=== PATIENT | female | born 1950 | race Caucasian/White ===

== ENCOUNTER 2022-01-22 09:38 | Emergency (ER) | payer MEDICARE, SELFPAY ==
[2022-01-22] VITALS (8 sets, daily range): BP systolic 105–148; BP diastolic 58–90; PULSE 88–96; RESP 16–20; TEMP 36.8–36.9; O2SAT 92–100
--- NOTE | ~2022-01-22 | XR_ITS ---
XR chest 1V portable DATE: 01/22/2022 10:02 INDICATION: Shortness of breath TECHNIQUE: Portable upright AP chest on 02/01/2022 at 1009 hours COMPARISON: None FINDINGS: Mild discoid atelectasis or scarring in the right lower lung. Mild infiltrate or atelectasi s in the lower lung zones, left greater than right. Cardiomegaly. Aortic unfolding. No hilar or mediastinal enlargement. No pleural effusion or pulmonary mass congestion or pneumothorax. Osteopenia. Degenerative spurring of the thoracic spine. IMPRESSION: Mild infiltrate and/atelectasis of the lower lung zones Reviewed, dictated and finalized at location B. HOUSE SHIPPING ASSOCIATE
--- NOTE | ~2022-01-22 | CT_ITS ---
EXAMINATION: CTA chest PE protocol DATE: 01/22/2022 12:30 INDICATION: Shortness of breath. Elevated d-dimer. TECHNIQUE: Computed tomography angiography (CTA) of the chest was performed with 100 mL Omnipaque-350 intravenous contrast timed to evaluate the pulmonary arteries. Coronal maximum intensity projection 3D-reconstructions were created by the technologist. Automated exposure control and iterative reconst ruction technique were employed. Exam dose: 391.32 mGy-cm total exam DLP. COMPARISON: 01/22/2022 portable AP chest FINDINGS: There is diagnostic contrast enhancement of the pulmonary arteries. No central pulmonary em bolus is identified. Peripheral pulmonary arteries are not optimally evaluated due to respiratory mot ion. Aberrant right subclavian artery courses posterior to the esophagus. Thoracic aorta measures within u pper limits of normal size. No thoracic or proximal abdominal aortic dissection. No hilar or mediasti nal mass lesion or lymphadenopathy. Cardiomegaly. No pericardial effusion. No pleural effusion. Status post cholecystectomy. There is mild discoid atelectasis or scarring of the right lower lobe no pulmonary consolidation. Diffuse idiopathic skeletal hyperostosis of the thoracic spine. No suspicious osteolytic or osteoblas tic lesions are noted. IMPRESSION: No central pulmonary embolus is identified. Peripheral pulmonary arteries are not optimal ly evaluated due to respiratory motion Cardiomegaly Mild discoid atelectasis or scarring of right lower lobe Reviewed, dictated and finalized at Location A. Reviewed, dictated and finalized at location B. K AND STATION AGENT IMPRESSION: No central pulmonary embolus is identified. Peripheral pulmonary ar teries are not optimally evaluated due to respiratory motion Cardiomegaly Mild discoid atelectasis or scarring of right lower lobe
--- NOTE | 2022-01-22 09:43 | ECG_ITS ---
Measurements Intervals [place] Rate: 87 P: 58 TN: 214 QRS: 148 QRSD: 136 T: 28 QT: 350 QTc: 422 Interpretive Statements SINUS RHYTHM WITH FIRST DEGREE AV BLOCK INTRAVENTRICULAR CONDUCTION DELAY [130+ ms QRS DURATION] SUSPECT RIGHT AND LEFT ARM LEAD TRANSPOSITION ABNORMAL ECG NO PREVIOUS ECG AVAILABLE FOR COMPARISON Electronically Signed On 01-22-2022 17:30:25 TOW TRUCK DISPATCHER by Justin Steele M.D.
--- NOTE | 2022-01-22 10:09 | ED.GENADULT ---
HPI - General Adult General Chief complaint: Upper Respiratory Infection Stated complaint: AMBULANCE Time Seen by Provider: 01/22/22 09:40 History of Present Illness HPI narrative: the patient is a 71-year-old woman with comorbidities of hypertension and congestive heart failure, on Entresto therapy. A previous records at this institution. She is vaccinated against COVID-19 2 of 2 doses +1 booster. She also has taken the flu vaccine this year. No previous history of myocardial infarctions or strokes. Takes aspirin 81 mg once daily. Status post cholecystectomy as the only abdominal operation. she does not smoke cigarettes and has not smoked in the past. She presents with flu-like symptoms since yesterday of nonproductive dry cough, nausea, dry heaves, generalized weakness, myalgias, rhinorrhea, sore throat, nasal congestion, and dyspnea. She also has low anterior substernal chest discomfort that is nonradiating. No abdominal pain. No fevers or chills or diaphoresis. No urinary symptoms such as urgency frequency or dysuria. Son also has similar flu-like symptoms Related Data Allergies Allergy/AdvReac Type Severity Reaction Status Date / Time No Known Allergies Allergy Verified 01/22/22 13:19 Review of Systems Review of Systems: All systems reviewed & are unremarkable except as noted in HPI and below Constitutional: Constitutional: Denies anorexia, Reports body ache(s), Denies chills, Denies excessive sweating, Reports fatigue, Denies fever(s), Denies frequent falls, Denies headache(s), Reports malaise and Reports poor appetite Eyes: Eyes: Reports no additional eye complaints, Denies blurry vision, Denies change in vision, Denies irritation, Denies itchy eyes and Denies photophobia ENT: Reports system reviewed and no additional complaints, except as documented, Reports Normal hearing present, Denies change in voice, Denies dysphagia, Denies vertigo, Denies dizziness, Denies ear discharge, Denies headache(s), Denies hearing loss, Denies hoarseness, Reports nasal congestion, Denies neck pain, Reports sinus pressure, Reports sore throat and Denies throat swelling Cardiovascular: Cardiovascular: Reports no additional cardiovascular complaints, Reports chest pain ( low substernal chest discomfort), Denies syncope, Denies rapid heart rate, Denies irregular heart rhythm, Reports leg edema ( mild chronic leg swelling), Denies radiating jaw, neck or arm pain, Reports dyspnea and Denies slow heart rate Respiratory: Respiratory: Reports chest congestion, Reports cough, Reports dyspnea, Denies stridor and Denies wheezing Gastrointestinal: Gastrointestinal: Reports no additional gastrointestinal complaints, Denies abdominal pain, Denies melena, Denies hematochezia, Denies dysphagia, Denies diarrhea, Reports nausea and Reports vomiting Genitourinary: Genitourinary: Denies hematuria, Denies urinary frequency, Denies dysuria, Denies flank pain and Denies urinary urgency Musculoskeletal: Musculoskeletal: Reports no additional musculoskeletal complaints, Denies abnormal gait, Denies back pain, Reports myalgias, Denies arthralgias, Denies joint swelling, Denies limited range of motion, Denies muscle cramps, Reports muscle weakness, Denies neck pain and Denies numbness Integumentary/Breasts: Skin/Breast: Reports system reviewed and no additional complaints, except as docu, Denies breast pain, Denies change in pigmentation, Denies pruritus, Denies erythema and Denies wounds Neurologic: Reports system reviewed and no additional complaints, except as documented, Reports Normal hearing present, Denies Abnormal speech present, Denies abnormal gait, Denies confusion, Denies vertigo, Denies dizziness, Denies syncope, Denies frequent falls, Denies headache(s), Denies focal weakness, Denies numbness and Denies paresthesias Psychiatric: Psychiatric: Reports no additional psychiatric complaints and Denies confusion Endocrine: Endocrine: Reports no additional endocrine c
[2022-01-22 10:22] LABS: Basophils Absolute Auto 0.01 K/mm3 (0.00-0.10); Basophils Percent Auto 0.1 % (0.0-1.0); Eosinophils Absolute Auto 0.06 K/mm3 (0.02-0.50); Eosinophils Percent Auto 0.8 % (1.0-6.0); Hematocrit 37.9 % (35.0-42.0); Hemoglobin 12.3 g/dL (11.7-13.8); Immature Granulocyte Absolute 0.03 K/mm3 (0.00-0.00); Immature Granulocyte Percent A 0.4 % (0.0-0.0); Lymphocytes Absolute Auto 0.33 K/mm3 (1.10-4.50); Lymphocytes Percent Auto 4.4 % (18.0-42.0); Mean Corpuscular HGB Conc 32.5 g/dL (32.0-36.0); Mean Corpuscular Hemoglobin 31.6 pg (27.0-31.0); Mean Corpuscular Volume 97.4 fL (78.0-102.0); Mean Platelet Volume 10.4 fl (9.2-11.8); Monocytes Absolute Auto 0.52 K/mm3 (0.10-0.90); Neutrophils Absolute Auto 6.5 K/mm3 (1.7-7.2); Neutrophils Percent Auto 87.3 % (50.0-70.0); Platelet Count Result 167 K/mm3 (150-420); Red Blood Count 3.89 M/mm3 (4.20-5.40); Red Cell Distribution Width 13.5 % (11.6-14.4); White Blood Count 7.4 K/mm3 (4.8-10.8)
[2022-01-22 10:42] LABS: D Dimer 1.81 mg/L (0.19-0.50)
[2022-01-22 10:46] LABS: Alanine Aminotransferase 33 U/L (14-59); Albumin Level 2.8 g/dL (3.4-5.0); Alkaline Phosphatase 128 U/L (46-116); Anion Gap 5 mmol/L (8-16); Aspartate Amino Transferase 27 U/L (15-37); Bilirubin,Total 0.7 mg/dL (0.00-1.00); Blood Urea Nitrogen 14 mg/dL (7-18); CRP 2.6 mg/dL (0.0-0.9); Calcium 8.4 mg/dL (8.5-10.1); Carbon Dioxide 29 mmol/L (21-32); Chloride 106 mmol/L (98-108); Estimated CRCL calculation 45 ml/min; Estimated Glomerular Filt Rate 48; Glucose 136 mg/dL (70-99); Magnesium 1.6 mg/dL (1.8-2.4); NT Pro B Type Natriuretic Pept 426 pg/mL (0-125); Osmolality Calculated 292 mOsm/kg (285-295); Potassium 3.9 mmol/L (3.5-5.1); Sodium 140 mmol/L (136-145); Total Protein 7.2 g/dL (6.4-8.2); Troponin I 7.3 ng/L (0.00-60.4)
[2022-01-22 10:46] LABS: Appearance Urine Clear (Clear); Bilirubin Urine Negative (Negative); Blood Urine Negative (Negative); Glucose Urine UA Negative (Negative); Ketones Urine Negative (Negative); Leukocyte Esterase Ur 1+ LEU/UL (Negative); Nitrate Urine Negative (Negative); Protein Urine Negative (Negative)
[2022-01-22 10:49] LABS: Lactic Acid Reflex 0.9 mmol/L (0.4-2.0)
[2022-01-22 10:52] LABS: Add Urine Microscopic? YES; Bacteria Urine 1+ /hpf; Color Urine Light Yellow (Yellow); RBC Urine None seen /hpf (0-2); Squamous Epithelial Cell Urine Few /hpf (Few)
[2022-01-22 10:52] LABS: Strep Group A RT-PCR NOT DETECTED (Negative)
[2022-01-22 11:10] LABS: Influenza A QL RT-PCR Positive (Negative); Influenza B QL RT-PCR Negative (Negative); SARS-CoV-2 RNA PCR Negative (Negative)
[2022-01-22 11:29] LABS: Erythrocyte Sedimentation Rate 45 mm/hr (0-20)
[2022-01-22] MEDS: CEPHALEXIN 500 MG CAPSULE PO (12:27)
[2022-01-22] MEDS: OSELTAMIVIR PHOSPHATE 75 MG CAPSULE PO (13:27)
[2022-01-22] MEDS: IPRATROPIUM 0.5 MG/ALBUTEROL SULFATE 2.5 MG AMPUL.NEB 3 ML INHALATION (13:31)
--- NOTE | 2022-01-24 13:27 | PC.NURSE ---
Urine culture report came back, patient's prescription changed to Augmentin 500mg 1 tablet po TID x 7days, #21 no refill, called into [facility], Rickey made aware of change.
== END 2022-01-22 13:48 | disposition home or self-care (01) ==
PROVIDERS: Emergency Provider Emergency Medicine
DX: J11.1 Influenza due to unidentified influenza virus with other respiratory manifestations (principal); N39.0 Urinary tract infection, site not specified; Z20.822 Contact with and (suspected) exposure to COVID-19; I10 Essential (primary) hypertension; I50.9 Heart failure, unspecified
CPT/HCPCS: 36415; 71045; 71275; 80053; 81001; 83605; 83735; 83880; 84484; 85025; 85380; 85652; 86140; 87077; 87086; 87088; 87636; 87651; 93005; 94640; 99284; A9270; Q9967

== ENCOUNTER 2022-03-18 09:14 | Outpatient (CLI) | payer MEDICARE, SELFPAY ==
--- NOTE | ~2022-03-18 | XR_ITS ---
Left Knee Technique: AP, lateral, and sunrise views were obtained. Clinical History: Pain Findings: No fracture or dislocation is seen. Osseous alignment is anatomic. Moderate degenerative ch mike of the patellofemoral compartment noted. Minimal spurring at the medial lateral joint lines pres ent. Soft tissues are unremarkable. No joint effusion is seen. Impression: Moderate patellofemoral compartment degenerative change. Minimal degenerative change of the medial and lateral compartments. Reviewed, dictated and finalized at location . SMAN/WOMAN Impression: Moderate patellofemoral compartment degenerative change. Minimal degenerative change of the medial and lateral compartments.
--- NOTE | ~2022-03-18 | XR_ITS ---
Right Knee Technique: AP, lateral, and sunrise views were obtained. Clinical History: Pain Findings: No fracture or dislocation is seen. Osseous alignment is anatomic. There is moderate patell ofemoral compartment degenerative change. There is minimal spurring at the medial and lateral joint l mis. Soft tissues are unremarkable. No joint effusion is seen. Impression: Moderate patellofemoral compartment degenerative change. Minimal degenerative change of the medial and lateral compartments. Reviewed, dictated and finalized at location M. RACT IMPLEMENTATION ANALYST Impression: Moderate patellofemoral compartment degenerative change. Minimal degenerative change of the medial and lateral compartments.
== END 2022-03-18 09:15 | disposition home or self-care (01) ==
LOC: CHSIMG 09:21
PROVIDERS: PCP Family Medicine; Visit Provider Family Medicine
DX: M25.561 Pain in right knee (principal); M25.562 Pain in left knee
CPT/HCPCS: 73562

== ENCOUNTER 2022-04-05 13:58 | Outpatient (CLI) | payer MEDICARE, SELFPAY | END 2022-04-05 13:59 | disposition home or self-care (01) | LOC: CHSAUDIO 14:01 | PROVIDERS: PCP Family Medicine; Visit Provider Family Medicine | DX: H90.3 Sensorineural hearing loss, bilateral (principal) | CPT/HCPCS: 92557; 92567 ==

== ENCOUNTER 2022-05-17 15:15 | Emergency (ER) | payer MEDICARE, SELFPAY ==
[2022-05-17] VITALS (38 sets, daily range): BP systolic 121–173; BP diastolic 65–152; PULSE 65–91; RESP 6–30; TEMP 36.3; O2SAT 88–96
--- NOTE | ~2022-05-17 | XR_ITS ---
EXAMINATION: XR chest 1V portable DATE: 05/17/2022 15:56 INDICATION: Chest pain. Nausea. TECHNIQUE: A single frontal view of the chest was obtained. COMPARISON: None. FINDINGS: There is mild atelectasis in right lower lung zone. No pleural effusion or pneumothorax. Th e heart size is normal. Surgical clips in the right upper quadrant are likely from cholecystectomy. IMPRESSION: 1. Mild atelectasis in right lower lung zone. Reviewed, dictated and finalized at location A.
--- NOTE | ~2022-05-17 | CT_ITS ---
EXAMINATION: CT abdomen pelvis w con INDICATION: Nausea TECHNIQUE: Computed tomographic images of the abdomen and pelvis were obtained after the administrati on of 100 cc of Omnipaque 350 intravenous contrast. The dose-length product (DLP) was 875.35 mGy-cm. Automated exposure control and iterative reconstruction technique were employed. COMPARISON: None available FINDINGS: Minimal dependent atelectasis is present in the lung bases. The heart size is normal. There are small pleural effusions. Punctate calcifications in an otherwise normal spleen likely represent healed granulomatous disease. The gallbladder is surgically absent. The liver, pancreas, and adrenal glands are normal. There is a small volume of upper abdominal ascites. The kidneys are unremarkable. The appendix is normal. No pathologically enlarged abdominal or pelvic lymph nodes are identified. Th ere is colonic diverticulosis. There is diverticulitis of the rectosigmoid colon. No perforation or a bscess are identified. There is moderate lumbar spondylosis at L5-S1. IMPRESSION: 1. Mild, uncomplicated rectosigmoid diverticulitis. 2. Small pleural effusions. 3. Minimal upper abdominal ascites. Reviewed, dictated and finalized at location L.
--- NOTE | 2022-05-17 15:26 | ECG_ITS ---
Measurements Intervals [place] Rate: 78 P: 71 VA: 212 QRS: -71 QRSD: 133 T: 70 QT: 365 QTc: 417 Interpretive Statements SINUS RHYTHM WITH FIRST DEGREE AV BLOCK LEFT AXIS DEVIATION [QRS AXIS < -30] LEFT BUNDLE BRANCH BLOCK [120+ ms QRS DURATION, 80+ ms Q/S IN V1/V2, 85+ ms R IN I/aVL/V5/V6] ABNORMAL ECG NO PREVIOUS ECG AVAILABLE FOR COMPARISON Electronically Signed On 05-19-2022 13:56:58 CDT by Eid Pan M.D.
--- NOTE | 2022-05-17 15:51 | ED.GENADULT ---
HPI - General Adult General Chief complaint: Chest Pain Stated complaint: chest pain Time Seen by Provider: 05/17/22 15:25 History of Present Illness HPI narrative: Prabha is a 76F with a PMH of obesity, and hypothyroidism that presented with a few non-specific complaints. She reports that her stomach started feeling icky a couple days ago. She endorses dry heaving and cannot tolerate PO. There is no diarreha. She does have some right low abdominal pain. Yesterday she also had a couple episodes of chest heaviness and dyspnea, however, she has no CP now. She also denies lightheadedness. Related Data Home Medications Medication Instructions Recorded Confirmed carvedilol 25 mg tablet 25 mg PO BID 05/17/22 05/17/22 sacubitril 24 mg-valsartan 26 mg 1 tablet PO BID 05/17/22 05/17/22 tablet (Entresto) Allergies Allergy/AdvReac Type Severity Reaction Status Date / Time No Known Allergies Allergy Verified 05/17/22 16:26 Review of Systems Review of Systems: All systems reviewed & are unremarkable except as noted in HPI and below Exam Const: General: healthy appearing, no acute distress and alert Nutritional Appearance: well nourished Orientation/consciousness: patient oriented x3 HENMT: Head: normal to inspection Eyes: Conjunctivae: conjunctivae normal Pupils: Equal, round and reactive pupils present Neck: Neck: normal visual inspection Chest: Chest palpation & inspection: normal inspection of the chest Resp: Effort & Inspection: normal respiratory effort Auscultation: clear to auscultation bilaterally Cardio: Rate: regular rate Rhythm: regular rhythm GI: Inspection: non-distended Other: TTP in the right lower quadrant. No rebound tenderness or guarding. Negative obturator and psoas signs Skin: General skin exam: normal color Neuro: General: patient oriented x3 and moves all extremities Extrem: Other: No deformity Psych: Mental Status: mental status grossly normal Affect: normal affect Course Course Emergency Course: Ordered labs, CXR, EKG, fluids and zofran EKG showed NSR with a rate of 78, LAD, and a LBBB Labs showed no leukocytosis or anemia. Chemistries remarkable for an elevated CRP. CT abd/pelvis showed mild diverticulitis with no signs of rupture or abscess. Vital Signs Vital signs: Vital Signs Temperature 97.4 F L 05/17/22 15:15 Pulse Rate 80 05/17/22 15:15 Respiratory Rate 18 05/17/22 15:15 Blood Pressure 147/71 H 05/17/22 15:15 Pulse Oximetry 95 05/17/22 15:15 Oxygen Delivery Room Air 05/17/22 15:15 Temperature 98 F 05/18/22 00:59 Pulse Rate 78 05/18/22 00:59 Respiratory Rate 20 05/18/22 00:59 Blood Pressure 138/72 05/18/22 00:59 Pulse Oximetry 96 05/18/22 00:59 Oxygen Delivery Room Air 05/18/22 00:59 Medical Decision Making Vital Signs Vital Signs: Vital Signs Temperature 97.4 F L 05/17/22 15:15 Pulse Rate 80 05/17/22 15:15 Respiratory Rate 18 05/17/22 15:15 Blood Pressure 147/71 H 05/17/22 15:15 Pulse Oximetry 95 05/17/22 15:15 Oxygen Delivery Room Air 05/17/22 15:15 Temperature 98 F 05/18/22 00:59 Pulse Rate 78 05/18/22 00:59 Respiratory Rate 20 05/18/22 00:59 Blood Pressure 138/72 05/18/22 00:59 Pulse Oximetry 96 05/18/22 00:59 Oxygen Delivery Room Air 05/18/22 00:59 Lab Data 05/17/22 15:40 05/17/22 15:41 Labs: Lab Results 05/17/22 05/17/22 05/17/22 Range/Units 15:40 15:40 15:41 WBC 8.2 (4.8-10.8) K/mm3 RBC 3.97 L (4.20-5.40) M/mm3 Hgb 12.3 (11.7-13.8) g/dL Hct 37.5 (35.0-42.0) % MCV 94.5 (78.0-102.0) fL MCH 31.0 (27.0-31.0) pg MCHC 32.8 (32.0-36.0) g/dL RDW 12.7 (11.6-14.4) % Plt Count 148 L (150-420) K/mm3 MPV 10.9 (9.2-11.8) fl Immature Gran % (Auto) 0.5 H (0.0-0.0) % Neut % (Auto) 71.2 H (50.0-70.0) % Lymph % (Auto) 15.6 L (18.0-42.0) % [place] % (Aut
[2022-05-17 15:56] LABS: Basophils Absolute Auto 0.03 K/mm3 (0.00-0.10); Basophils Percent Auto 0.4 % (0.0-1.0); Eosinophils Absolute Auto 0.04 K/mm3 (0.02-0.50); Eosinophils Percent Auto 0.5 % (1.0-6.0); Hematocrit 37.5 % (35.0-42.0); Hemoglobin 12.3 g/dL (11.7-13.8); Immature Granulocyte Absolute 0.04 K/mm3 (0.00-0.00); Immature Granulocyte Percent A 0.5 % (0.0-0.0); Lymphocytes Absolute Auto 1.28 K/mm3 (1.10-4.50); Lymphocytes Percent Auto 15.6 % (18.0-42.0); Mean Corpuscular HGB Conc 32.8 g/dL (32.0-36.0); Mean Corpuscular Volume 94.5 fL (78.0-102.0); Mean Platelet Volume 10.9 fl (9.2-11.8); Monocytes Absolute Auto 0.97 K/mm3 (0.10-0.90); Monocytes Percent Auto 11.8 % (2.0-11.0); Neutrophils Absolute Auto 5.8 K/mm3 (1.7-7.2); Neutrophils Percent Auto 71.2 % (50.0-70.0); Platelet Count Result 148 K/mm3 (150-420); Red Blood Count 3.97 M/mm3 (4.20-5.40); Red Cell Distribution Width 12.7 % (11.6-14.4); White Blood Count 8.2 K/mm3 (4.8-10.8)
[2022-05-17 16:09] LABS: INR 1.2; Prothrombin Time 13.2 Seconds (9.50-12.10)
[2022-05-17 16:19] LABS: Alanine Aminotransferase 31 U/L (14-59); Albumin Level 2.4 g/dL (3.4-5.0); Alkaline Phosphatase 144 U/L (46-116); Anion Gap 6 mmol/L (8-16); Aspartate Amino Transferase 21 U/L (15-37); Bilirubin,Total 0.9 mg/dL (0.00-1.00); Blood Urea Nitrogen 10 mg/dL (7-18); CRP 9.7 mg/dL (0.0-0.9); Calcium 8.7 mg/dL (8.5-10.1); Carbon Dioxide 29 mmol/L (21-32); Chloride 104 mmol/L (98-108); Estimated Glomerular Filt Rate 56; Glucose 125 mg/dL (70-99); Lipase 16 U/L (16-77); Magnesium 1.8 mg/dL (1.8-2.4); NT Pro B Type Natriuretic Pept 480 pg/mL (0-450); Osmolality Calculated 288 mOsm/kg (285-295); Potassium 3.7 mmol/L (3.5-5.1); Sodium 139 mmol/L (136-145); Troponin I 7.5 ng/L (0.00-60.4)
[2022-05-17] MEDS: ONDANSETRON INJ 4 MG/2 ML VIAL IV PUSH ×2 (16:59→23:30)
[2022-05-17] MEDS: SODIUM CHLORIDE 0.9% IV 1,000 ML 500 ML IV CONT (17:39)
--- NOTE | 2022-05-17 23:24 | PC.NURSE ---
Checked on pt. and helped to reposition pt in bed, call light placed at pt side, lights dimmed per pt request. Informed pt on still waiting CT scan results due to system down. Pt c/o some nausea, and wanting crackers to eat. OK per ERP Dr Sanchez to give pt small bites to eat, saltine crackers given. Pt still c/o some queasy stomach and order obtained for zofran 4mg IVP.
[2022-05-18 00:30] VITALS: BP 136/68; PULSE 77; RESP 25; O2SAT 91
[2022-05-18] MEDS: AMOXICILLIN/CLAVULANATE K 875-125 MG TAB 1 TABLET PO (00:38)
--- NOTE | 2022-05-18 00:45 | PC.NURSE ---
POC for d/c home discussed c pt. Call placed to pts. spouse for ride home and d/c as planned. ERP Dr Sanchez to discuss POC c pt and home care plan.
[2022-05-18 00:59] VITALS: BP 138/72; PULSE 78; RESP 20; TEMP 36.6; O2SAT 96
== END 2022-05-18 01:05 | disposition home or self-care (01) ==
PROVIDERS: Emergency Provider Family Medicine; PCP Family Medicine
DX: K57.92 Diverticulitis of intestine, part unspecified, without perforation or abscess without bleeding (principal)
CPT/HCPCS: 36415; 71045; 74177; 80053; 83605; 83690; 83735; 83880; 84484; 85025; 85610; 86140; 93005; 96361; 96374; 96376; 99284; A9270; J2405; J7030; Q9967

== ENCOUNTER 2022-07-08 13:00 | Outpatient (CLI) | payer MEDICARE, SELFPAY ==
--- NOTE | ~2022-07-08 | US_ITS ---
EXAMINATION: US carotid duplex BI DATE: 07/08/2022 13:36 INDICATION: Dizziness TECHNIQUE: Grayscale, color Doppler, and pulsed Doppler images of the cervical carotid arteries were obtained. The degree of vessel stenosis is placed in one of the following categories: normal, <50%, 5 0-69%, >=70% but less than near-occlusion, near-occlusion, or total occlusion. Note that percent sten osis relative to normal distal artery lumen diameter is indirectly measured from velocity measurement s as described by Chris, et al. Radiology 2003; 229:340-346. Notes: Normal: Peak systolic velocity <125 centimeters/sec and no plaque <50%. Peak systolic velocity <125 ( EDV <40; ICA/CCA PSV ratio <2.0; used these factors only a tandem lesions or low cardiac output or co ntralateral disease) 50-69 %: PSV 125-230 (EDV 40-100; ratio 2-4) >= 70% but less than near occlusion: PSV greater than 230 (EDV > 100; ratio> 4.0) Near Occlusion: PSV that is variable; markedly narrowed lumen Occlusion: Absent flow on color/spectral Doppler and no lumen on kuhn scale. COMPARISON: None. FINDINGS: RIGHT: The right common carotid artery (CCA) peak systolic velocity (PSV) is 83 cm/s. The right internal car otid artery (ICA) PSV is 71 cm/s. The right ICA end-diastolic velocity (EDV) is 25 cm/s. The right IC A/CCA PSV ratio is 0.86. The external carotid artery (ECA) PSV is 69 cm/s. There is antegrade flow in the right vertebral artery. LEFT: The left CCA PSV is 78 cm/s. The left ICA PSV is 64 cm/s. The left ICA EDV is 22 cm/s. The left ICA/C CA PSV ratio is 0.82. The ECA PSV is 60 cm/s. There is antegrade flow in the left vertebral artery. IMPRESSION: 1. Less than 50% stenosis in the right internal carotid artery by sonographic criteria. 2. Less than 50% stenosis in the left internal carotid artery by sonographic criteria. Reviewed, dictated and finalized at location L. IMPRESSION: 1. Less than 50% stenosis in the right internal carotid artery by sonographic natalie hobbs. 2. Less than 50% stenosis in the left internal carotid artery by sonographic tom bullard.
== END 2022-07-08 13:01 | disposition home or self-care (01) ==
LOC: CHSIMG 13:01
PROVIDERS: PCP Family Medicine; Visit Provider Family Medicine
DX: R42 Dizziness and giddiness (principal); I65.23 Occlusion and stenosis of bilateral carotid arteries
CPT/HCPCS: 93880

== ENCOUNTER 2022-07-26 08:25 | Outpatient (CLI) | payer MEDICARE, SELFPAY ==
--- NOTE | ~2022-07-26 | MM_ITS ---
EXAMINATION: MM screening abebe BI w choco HISTORY: Screening mammogram TECHNIQUE: Craniocaudal and mediolateral oblique 3-D tomosynthesis images were obtained and synthetic 2-D images were generated. CAD analysis was submitted and interpreted. COMPARISON: No prior mammogram is available for comparison at this institution. BREAST PARENCHYMAL COMPOSITION: There are scattered areas of fibroglandular density. FINDINGS: There is no evidence of suspicious mass, calcification, or architectural distortion to sugg est malignancy in either breast. IMPRESSION: 1. No mammographic evidence of malignancy. 2. Recommend routine screening mammography in one year. BI-RADS Category 1: Negative Reviewed, dictated and finalized at location A.
--- NOTE | 2022-07-26 08:33 | ECHO_ITS ---
Patient Info Name: Marialuisa Schofield Age: 76 years : 11/13/1945 Gender: Female Ht: 66 in Wt: 200 lbs BSA: 2.09 m2 HR: 67 bpm BP: 149 / 76 mmHg Heart Rhythm: Sinus Rhythm Technical Quality: Fair Exam Date: 07/26/2022 8:25 AM Exam Location: [facility] Patient Status: Outpatient Admit Date: 07/26/2022 Staff Ordering Physician: Tay Almendarez MD [employer] Fighter Pilot: Yola Iglesias RDCS Attending Provider: Tay Almendarez MD Referring Physician: Erickson GONSALES; Exam Type: CA echo doppler color flow Study Info Indications - abnormal ekg Complete two-dimensional, color flow and Doppler transthoracic echocardiogram is performed. Summary 1. Complete two-dimensional, color flow and Doppler transthoracic echocardiogram is performed. 2. Left ventricular chamber dimension is normal. 3. Left ventricular systolic function is normal, estimated at 55-60%. 4. The left ventricular diastolic function is grade I diastolic dysfunction. 5. E/e' 13 is mildly elevated. 6. Left atrial chamber dimension is moderately enlarged. 7. Right atrial chamber dimension is mildly enlarged. 8. There is trace tricuspid valve regurgitation. 9. No pulmonary hypertension, estimated pulmonary arterial systolic pressure is 25 mmHg. Left Ventricle E/e' 13 is mildly elevated. Left ventricular chamber dimension is normal. Left ventricular systolic function is normal, estimated at 55-60%. The left ventricular diastolic function is grade I diastolic dysfunction. Right Ventricle Right ventricular systolic function is normal and with normal TAPSE 3.3 cm. Right ventricular chamber dimension is normal. Left Atria Left atrial chamber dimension is moderately enlarged. Right Atria Right atrial chamber dimension is mildly enlarged. Aortic Valve The aortic valve is trileaflet. There is no aortic valve stenosis. There is no aortic valve regurgitation. Pulmonic Valve There is no pulmonic regurgitation. Mitral Valve There is no mitral valve stenosis. There is no mitral valve regurgitation. Tricuspid Valve There is trace tricuspid valve regurgitation. No pulmonary hypertension, estimated pulmonary arterial systolic pressure is 25 mmHg. Pericardium/Pleural There is no pericardial effusion. Inferior Vena Cava Normal inferior vena cava with >50% collapse upon inspiration consistent with normal right atrial pressure, 5 mmHg. Aorta The aortic root size at the sinus of Valsalva is normal. Left Ventricular Outflow Tract Name Value Normal LVOT 2D LVOT Diameter 2.1 cm LVOT Doppler LVOT Peak Velocity 112 cm/s LVOT Peak Gradient 5 mmHg LVOT Mean Gradient 2 mmHg LVOT VTI 26 cm LVOT VTI/AV VTI Ratio 1.0 LVOT Stroke Volume 94 ml Pulmonic Valve Name Value Normal RVOT Doppler RVOT Peak Gradient 2 mmHg
== END 2022-07-26 08:26 | disposition home or self-care (01) ==
PROVIDERS: PCP Family Medicine; Visit Provider Family Medicine
DX: R42 Dizziness and giddiness (principal); R94.31 Abnormal electrocardiogram [ECG] [EKG]; Z12.31 Encounter for screening mammogram for malignant neoplasm of breast; I51.7 Cardiomegaly
CPT/HCPCS: 77063; 77067; 93306

== ENCOUNTER 2022-09-04 08:57 | Observation (INO) | payer MEDICARE, SELFPAY ==
[2022-09-04] VITALS (7 sets, daily range): BP systolic 148–157; BP diastolic 74–88; PULSE 65–76; RESP 16–20; TEMP 36.3–36.4; O2SAT 96–98; BMI 32.3
--- NOTE | ~2022-09-04 | CT_ITS ---
EXAMINATION: CT abdomen pelvis w con DATE: 09/06/2022 06:21 INDICATION: Diverticulitis evaluate for interval change. TECHNIQUE: Computed tomography (CT) of the a bdomen and pelvis was performed with 100 cc Omnipaque 350 intravenous contrast. The dose-length produ ct was 887.80 mGy-cm. Automated exposure control and iterative reconstruction technique were employed . COMPARISON: 09/04/2022 FINDINGS: Bilateral lower lobe atelectasis. Heart size normal. No significant pleural or pericardial effusion. There is splenomegaly. There are calcified granulomas of the spleen. Status post cholecyste ctomy. There is an enlarged left hepatic lobe without discrete mass. The pancreas, adrenal glands and kidneys are unremarkable. There is free fluid in the pelvis. Normal appendix. There is free fluid in the paracolic gutters. There is improved diverticulitis involving the distal descending colon and si gmoid colon. There is persistent small amount of free fluid in the pelvis. No discrete abscess identi fied. Prominent parametrial vessels, suspicious for pelvic congestion syndrome. There is atherosclero sis of the aorta without aneurysm. No free air. IMPRESSION: 1. Improving diverticulitis of the distal descending and sigmoid colon. No discrete walled off fluid collection to suggest abscess. Reviewed, dictated and finalized at location A. IMPRESSION: 1. Improving diverticulitis of the distal descending and sigmoid colon. No disc rete walled off fluid collection to suggest abscess.
--- NOTE | ~2022-09-04 | CT_ITS ---
EXAMINATION: CT abdomen pelvis w con DATE: 09/04/2022 10:52 INDICATION: Left lower quadrant pain for 4 days. History of cholecystectomy. Diverticulitis. TECHNIQUE: Computed tomography (CT) of the abdomen and pelvis was performed with 100 cc Omnipaque 350 intravenous contrast. The dose-length product was 930.48 mGy-cm. Automated exposure control and iter ative reconstruction technique were employed. COMPARISON: None. FINDINGS: There is multifocal diverticulitis involving the distal descending and sigmoid colon colon with possible developing diverticular abscess of the sigmoid colon. Trace free fluid in the pelvis. There is dependent atelectasis. Cardiomegaly. No significant pleural or pericardial effusion. Status post cholecystectomy with expected prominence of the bile ducts. There is splenomegaly. The pancreas, adrenal glands and kidneys are unremarkable. Nonobstructive bowel pattern. Prominent periuterine vei ns, suspicious for pelvic congestion syndrome. No acute osseous abnormality. Severe lumbar spondylosi s. No free air. IMPRESSION: 1. Multifocal acute colonic diverticulitis involving the distal descending and sigmoid colon with pos sible developing diverticular abscess of the sigmoid colon, images 146-150. 2: Splenomegaly. Reviewed, dictated and finalized at location A. IMPRESSION: 1. Multifocal acute colonic diverticulitis involving the distal descending and sigmoid colon with possible developing diverticular abscess of the sigmoid colo n, images 146-150. 2: Splenomegaly.
--- NOTE | 2022-09-04 09:24 | ED.ABDPAIN ---
HPI - Abdominal Pain General Chief Complaint: Abdominal Pain Stated Complaint: abdominal pain Time Seen by Provider: 09/04/22 08:58 Source: patient Mode of arrival: ambulatory Limitations: no limitations History of Present Illness HPI narrative: 76-year-old female with past medical history of congestive heart failure, on carvedilol and Entresto, who follows with Cardiology at [facility], past medical history of diverticulitis earlier this year, chronic constipation taking MiraLax, who presents to the emergency room due to left lower quadrant pain that started Tuesday ( 4 days ago ). Patient has been having bowel movements but is somewhat constipated. Denied any fever or chills. Patient has had a cholecystectomy. She had a colonoscopy about a year ago with normal result (per patient) MD elicited complaint: abdominal pain Pertinent past history: constipation and diverticulitis Onset (ago): day(s) (4) Pain Consistency: constant Location: LLQ Severity: moderate Quality: sharp Radiation: none Exacerbating factors: movement Relieving factors: rest Context: confirms history of similar episodes Associated symptoms: denies other symptoms and constipation Related Data Home Medications Medication Instructions Recorded Confirmed sacubitril 24 mg-valsartan 26 mg 1 tablet PO BID 05/17/22 09/04/22 tablet (Entresto) carvedilol 6.25 mg tablet (Coreg) 6.25 mg PO BID 09/04/22 09/04/22 Allergies Allergy/AdvReac Type Severity Reaction Status Date / Time No Known Allergies Allergy Verified 07/20/22 13:21 Review of Systems Constitutional: Constitutional: Reports as per HPI and Reports no additional constitutional complaints Eyes: Eyes: Reports as per HPI and Reports no additional eye complaints ENT: Reports system reviewed and no additional complaints, except as documented and Reports as per HPI Cardiovascular: Cardiovascular: Reports as per HPI and Reports no additional cardiovascular complaints Respiratory: Respiratory: Reports as per HPI and Reports no additional respiratory complaints Gastrointestinal: Gastrointestinal: Reports as per HPI and Reports no additional gastrointestinal complaints Genitourinary: Genitourinary: Reports as per HPI Musculoskeletal: Musculoskeletal: Reports no additional musculoskeletal complaints and Reports as per HPI Integumentary/Breasts: Skin/Breast: Reports system reviewed and no additional complaints, except as docu and Reports as per HPI Neurologic: Reports system reviewed and no additional complaints, except as documented and Reports as per HPI Psychiatric: Psychiatric: Reports no additional psychiatric complaints and Reports as per HPI Endocrine: Endocrine: Reports no additional endocrine complaints and Reports as per HPI Hematologic/Lymphatic: Hematologic/Lymphatic: Reports no additional hematologic/lymphatic complaints and Reports as per HPI Allergic/Immunologic: Allergic/Immunologic: Reports no additional allergic/immunologic complaints and Reports as per HPI [facility] Social History Social History Smoking status: Never smoker Alcohol intake: never Lack of Transportation: No Lack of Food: Never True Current Housing: I Have Housing Concerned About Future Housing: No Difficulty Paying Gas/Electric Bills: No Difficulty Paying for Meds: No Currently Unemployed: No Education: High School Diploma/GED Difficulty w/ Childcare or Family Care: No Exam Const: General: no acute distress Nutritional Appearance: obese Orientation/consciousness: patient oriented x3 Limitations: no limitations HENMT: Head: normal to inspection Eyes: Conjunctivae: conjunctivae normal Pupils: Equal, round and reactive pupils present Chest: Chest palpation & inspection: normal inspection of the chest Resp: Effort & Inspection: normal respiratory effort Auscultation: clear to auscultation bilaterally Cardio: Rate: reg
[2022-09-04 09:33] LABS: Appearance Urine Clear (Clear); Bilirubin Urine Negative (Negative); Blood Urine Negative (Negative); Color Urine Light Yellow (Yellow); Glucose Urine UA Negative (Negative); Ketones Urine Negative (Negative); Leukocyte Esterase Ur Negative LEU/UL (Negative); Nitrate Urine Negative (Negative); Protein Urine Negative (Negative)
[2022-09-04 09:33] LABS: Hematocrit 39.3 % (35.0-42.0); Hemoglobin 12.8 g/dL (11.7-13.8); Mean Corpuscular HGB Conc 32.6 g/dL (32.0-36.0); Mean Corpuscular Hemoglobin 31.4 pg (27.0-31.0); Mean Corpuscular Volume 96.3 fL (78.0-102.0); Mean Platelet Volume 10.8 fl (9.2-11.8); Platelet Count Result 159 K/mm3 (150-420); Red Blood Count 4.08 M/mm3 (4.20-5.40); Red Cell Distribution Width 12.8 % (11.6-14.4)
[2022-09-04 09:45] LABS: Add Urine Microscopic? NO
[2022-09-04 09:48] LABS: Alanine Aminotransferase 23 U/L (14-59); Albumin Level 2.6 g/dL (3.4-5.0); Alkaline Phosphatase 151 U/L (46-116); Anion Gap 6 mmol/L (8-16); Aspartate Amino Transferase 20 U/L (15-37); Bilirubin,Total 0.7 mg/dL (0.00-1.00); Blood Urea Nitrogen 16 mg/dL (7-18); Calcium 8.8 mg/dL (8.5-10.1); Carbon Dioxide 29 mmol/L (21-32); Chloride 107 mmol/L (98-108); Estimated CRCL calculation 45 ml/min; Estimated Glomerular Filt Rate 51; Glucose 161 mg/dL (70-99); Osmolality Calculated 298 mOsm/kg (285-295); Potassium 3.6 mmol/L (3.5-5.1); Sodium 142 mmol/L (136-145)
--- NOTE | 2022-09-04 10:30 | PC.NURSE ---
1000 pt resting per cot, call cobian in reach. no needs at this time. [address] for [address] via wheelchair with xray staff.
--- NOTE | 2022-09-04 11:03 | PC.NURSE ---
returned to room, awaiting results of ct. call cobian in reach.
--- NOTE | 2022-09-04 11:31 | ECG_ITS ---
Measurements Intervals [place] Rate: 60 P: 90 VA: 229 QRS: -59 QRSD: 148 T: 53 QT: 435 QTc: 436 Interpretive Statements SINUS RHYTHM WITH FIRST DEGREE AV BLOCK LEFT AXIS DEVIATION LEFT BUNDLE BRANCH BLOCK BASELINE ARTIFACT- III, AVF ABNORMAL ECG COMPARED TO ECG 05/17/2022 15:31:32 NO SIGNIFICANT CHANGES Electronically Signed On 09-04-2022 22:02:27 CDT by Lokesh Casiano D.O.
[2022-09-04] MEDS: levoFLOXacin 750 MG/D5W 150 ML 750 MG/150 ML BAG 100 MG IVPB (11:36)
[2022-09-04] MEDS: SODIUM CHLORIDE 0.9% IV 1,000 ML 999 ML IV CONT (11:37)
--- NOTE | 2022-09-04 11:55 | PC.NURSE ---
Patient arrived on unit in w/c accompanied by ER staff and her . Patient able to self transfer from w/c to bed without assistance. Gold Wheel Blocker And Polisher educated patient on use of call light and bed controls, hospital policies, including visiting hours, isolation and PPE requirements, and activation of a rapid response. Patient voiced understanding. Patient was also educated on fall prevention and asked to use the call light any time patient was attached to an IV or any other tethering equipment. Patient voiced understanding.
[2022-09-04 12:25] LABS: Hemoglobin A1C 5.5 % (<5.7)
[2022-09-04] MEDS: polyethylene glycoL 3350 17 GM POWD.PACK PO (13:17)
[2022-09-04] MEDS: metroNIDAZOLE 500 MG/ISO 100ML 500 MG/100 ML BAG 100 MG IVPB (13:18)
--- NOTE | 2022-09-04 14:18 | PC.NURSE ---
Patient has had 2 medium soft, brown BMs in the past 15 minutes.
[2022-09-04] MEDS: SACUBITRIL/VALSARTAN 24-26 MG TABLET 1 TAB PO (17:12)
[2022-09-04] MEDS: carvediloL 6.25 MG TABLET PO (17:12)
--- NOTE | 2022-09-04 18:06 | PC.NURSE ---
Patient has loose stools x 1.
--- NOTE | 2022-09-04 19:02 | PC.NURSE ---
Patient notified telegraphic typewriter mechanic that she has had another loose stool.
--- NOTE | 2022-09-04 20:12 | PC.NURSE ---
patient was wanting to not take her colace this evening she had miralax this afternoon and has had 4 bowel movements since.
--- NOTE | 2022-09-04 22:30 | PC.NURSE ---
TILE DECORATOR charting verified by charge nurse.
[2022-09-05] VITALS: BP 160/77; PULSE 71; RESP 19; TEMP 36.2; O2SAT 96
[2022-09-05 05:27] LABS: Basophils Absolute Auto 0.06 K/mm3 (0.00-0.10); Basophils Percent Auto 0.8 % (0.0-1.0); Eosinophils Absolute Auto 0.33 K/mm3 (0.02-0.50); Eosinophils Percent Auto 4.4 % (1.0-6.0); Immature Granulocyte Absolute 0.02 K/mm3 (0.00-0.00); Immature Granulocyte Percent A 0.3 % (0.0-0.0); Lymphocytes Absolute Auto 1.63 K/mm3 (1.10-4.50); Lymphocytes Percent Auto 21.5 % (18.0-42.0); Mean Corpuscular HGB Conc 32.5 g/dL (32.0-36.0); Mean Corpuscular Hemoglobin 31.3 pg (27.0-31.0); Mean Corpuscular Volume 96.4 fL (78.0-102.0); Mean Platelet Volume 10.8 fl (9.2-11.8); Monocytes Absolute Auto 0.69 K/mm3 (0.10-0.90); Monocytes Percent Auto 9.1 % (2.0-11.0); Neutrophils Absolute Auto 4.8 K/mm3 (1.7-7.2); Neutrophils Percent Auto 63.9 % (50.0-70.0); Platelet Count Result 184 K/mm3 (150-420); Red Blood Count 4.15 M/mm3 (4.20-5.40); Red Cell Distribution Width 12.6 % (11.6-14.4); White Blood Count 7.6 K/mm3 (4.8-10.8)
[2022-09-05 05:39] LABS: Anion Gap 5 mmol/L (8-16); Blood Urea Nitrogen 10 mg/dL (7-18); Calcium 9.2 mg/dL (8.5-10.1); Carbon Dioxide 30 mmol/L (21-32); Chloride 107 mmol/L (98-108); Estimated CRCL calculation 44 ml/min; Estimated Glomerular Filt Rate 50; Glucose 112 mg/dL (70-99); Magnesium 1.8 mg/dL (1.8-2.4); Osmolality Calculated 294 mOsm/kg (285-295); Potassium 3.8 mmol/L (3.5-5.1); Sodium 142 mmol/L (136-145)
--- NOTE | 2022-09-05 06:54 | PM.IMHP ---
H&P: HPI History of Present Illness Date/Time: 09/05/22 06:54 Chief Complaint: Abdominal pain and constipation Narrative: This is a 76-year-old female patient with a history of longstanding hypertension, grade 1 diastolic insufficiency /CHF and hearing loss. Patient lives independently with her at home in [facility]. Her family lives close. Patient states that she developed left lower quadrant pain and constipation on 09/01/22. She attempted to treat her constipation with MiraLax at home had a bowel movement but did not feel any better. Eventually on 09/04/2022 she presented to the emergency department and was found to acute diverticulitis in the transverse and sigmoid colon with possible developing abscess the sigmoid colon. Patient was admitted to the hospital on IV Levaquin and IV Flagyl. Patient received treatment with MiraLax and Colace and now her constipation symptoms have fully resolved and her pain is nearly gone, only occurs occasionally and is mild. Patient denies any nausea or vomiting. She denies any chest pain or shortness of breath. She denies any swelling or pain in her extremities. She notes that she feels well in hopes to be able to discharge home soon. In discussing history with the patient she notes that she was treated in the emergency department in May for acute diverticulitis and was sent home on oral antibiotics which she completed. This is now a recurrence of diverticulitis within a few months. I discussed with patient that if it appears on repeat CT scan that and abscesses worsening, she would be transferred to [facility] for surgical evaluation. She was agreeable with this plan though she certainly hopes she can be treated with oral antibiotics at home at this time. Review of Systems Review of Systems: All systems reviewed & are unremarkable except as noted in HPI and below PMFSH Past Medical History Medical History CHF (congestive heart failure) Chronic dysfunction of left eustachian tube Healed perforation of left ear drum Heart disease Hypertension Sensorineural hearing loss of combined sites, bilateral Social History Social History Smoking status: Never smoker Second hand tobacco smoke exposure: No Alcohol intake: never Substance use: never Lack of Transportation: No Lack of Food: Never True Current Housing: I Have Housing Concerned About Future Housing: No Difficulty Paying Gas/Electric Bills: No Difficulty Paying for Meds: No Currently Unemployed: No Education: High School Diploma/GED Difficulty w/ Childcare or Family Care: No Spiritual care concerns: No Meds Home Medications and Allergies Home Medications Medication Instructions Recorded Confirmed Type sacubitril 24 mg-valsartan 26 mg 1 tablet PO BID 05/17/22 09/04/22 History tablet (Entresto) carvedilol 6.25 mg tablet (Coreg) 6.25 mg PO BID 09/04/22 09/04/22 History Allergies Allergy/AdvReac Type Severity Reaction Status Date / Time No Known Allergies Allergy Verified 07/20/22 13:21 Vital Signs Vital Signs - 24 hr 09/04/22 08:58 09/04/22 11:21 09/04/22 11:50 Temperature 36.4 C 36.4 C Pulse Rate 76 75 66 Respiratory Rate 20 20 16 Blood Pressure 157/77 H 148/74 H Pulse Oximetry 96 98 98 Oxygen Delivery Room Air Room Air Room Air 09/04/22 16:00 09/04/22 11:55 09/04/22 17:12 Temperature 36.3 C L 36.4 C Pulse Rate 65 66 72 Respiratory Rate 16 16 Blood Pressure 149/75 H 157/88 H Pulse Oximetry 98 98 Oxygen Delivery Room Air Room Air 09/04/22 20:00 09/05/22 00:00 Temperature 36.2 C L Pulse Rate 72 71 Respiratory Rate 16 19 Blood Pressure 160/77 H Pulse Oximetry 98 96 Oxygen Delivery Room Air Room Air Exam Narrative: GENERAL: Generally well appearing, alert and oriented, in no apparent distress. She is pleasant and conver
[2022-09-05 08:00] VITALS: BP 191/90; PULSE 82; RESP 16; TEMP 36.4; O2SAT 96
[2022-09-05] MEDS: metroNIDAZOLE 500 MG/ISO 100ML 500 MG/100 ML BAG 100 MG IVPB ×3 (08:16→21:23)
[2022-09-05] MEDS: ENOXAPARIN 40 MG/0.4 ML SYRINGE SUB-Q (08:21)
[2022-09-05 08:23] VITALS: PULSE 84
[2022-09-05] MEDS: SACUBITRIL/VALSARTAN 24-26 MG TABLET 1 TAB PO ×2 (08:23→17:05)
[2022-09-05] MEDS: carvediloL 6.25 MG TABLET PO ×2 (08:23→17:05)
[2022-09-05] MEDS: levoFLOXacin 750 MG/D5W 150 ML 750 MG/150 ML BAG 100 MG IVPB (09:22)
[2022-09-05 16:00] VITALS: BP 172/78; PULSE 76; RESP 16; TEMP 36.6; O2SAT 97
[2022-09-05 17:05] VITALS: PULSE 76
[2022-09-05 20:00] VITALS: PULSE 76; RESP 16; O2SAT 97
[2022-09-06] VITALS: BP 180/78; PULSE 84; RESP 16; TEMP 36.6; O2SAT 97
--- NOTE | 2022-09-06 04:26 | PC.NURSE ---
RN NEONATAL documentation reviewed and verified by charge nurse.
[2022-09-06] MEDS: metroNIDAZOLE 500 MG/ISO 100ML 500 MG/100 ML BAG 100 MG IVPB (04:59)
[2022-09-06 07:38] VITALS: BP 152/89; PULSE 75; RESP 16; TEMP 36.8; O2SAT 98
[2022-09-06] MEDS: SACUBITRIL/VALSARTAN 24-26 MG TABLET 1 TAB PO (09:00)
[2022-09-06 09:01] VITALS: PULSE 75
[2022-09-06] MEDS: carvediloL 6.25 MG TABLET PO (09:01)
[2022-09-06] MEDS: ENOXAPARIN 40 MG/0.4 ML SYRINGE SUB-Q (09:01)
[2022-09-06] MEDS: levoFLOXacin 750 MG/D5W 150 ML 750 MG/150 ML BAG 100 MG IVPB (09:01)
--- NOTE | 2022-09-06 09:24 | PM.DS ---
DS: Admitting Diagnosis Discharge Date 09/05/2022 Admitting Diagnosis diverticulitis DS: Discharge Diagnosis Discharge Diagnosis (1) Diverticulitis of large intestine with abscess: Qualifiers: Diverticulitis bleeding: without bleeding Qualified Code(s): K57.20 - Diverticulitis of large intestine with perforation and abscess without bleeding Code(s): K57.20 - Diverticulitis of large intestine with perforation and abscess without bleeding Status: Acute Assessment and Plan: Admit for IV antibiotics. Repeat CT scan to assess for any evidence of worsening abscess formation. If worsening consider transfer for surgical evaluation. CT scan negative for Abscess at this time . (2) Hypertension: Code(s): I10 - Essential (primary) hypertension Status: Acute Assessment and Plan: Stable, continue home medications. (3) Constipation: Qualifiers: Constipation type: unspecified constipation type Qualified Code(s): K59.00 - Constipation, unspecified Code(s): K59.00 - Constipation, unspecified Status: Acute Assessment and Plan: Patient is passing stool no blood noted. She reports only occasional left lower quadrant abdominal pain now. Miralax every other day (4) Heart disease: Code(s): I51.9 - Heart disease, unspecified Status: Acute Assessment and Plan: Patient is on Entresto and Coreg for coronary artery disease and chronic diastolic CHF. EKG shows left bundle-branch block and left axis deviation. Patient denies any chest pain or difficulty breathing. No signs of fluid overload or pulmonary edema. Plan Continue IV antibiotics. Levaquin and Flagyl initiated by the emergency department will be continued with plan for repeat CT scan tomorrow. Any worsening in condition should prompt transfer to [facility] with surgical consultation. Advanced diet as tolerated in the meantime. Pain medication Tylenol for mild pain, [place] for moderate pain and morphine for severe pain. DS: Summary Hospital Course Reason for hospitalization: Diverticulitis Hospital Course: This is a 76-year-old female that was admitted with diverticulitis with a possible abscess patient was treated as in p.o. IV fluids pain medication was being monitored to ensure there is no perforations or any abscess. Repeat CT showed that patient had no abscess elder showing any infection she received IV antibiotics while here patient has continued to improve is feeling a lot better currently she is able to eat drink without any problems her white blood cell count has went down her BUN and creatinine has improved patient is tolerating oral at this time we will discharge her home on oral antibiotics which will follow-up with her primary care provider as well as recommendations for her to have GI as outpatient appointment patient denies any nausea or pain with palpitation safe for discharge vitals remained stable labs are stable potassium is 3.8, sodium 142, BUN is 10, creatinine 1.06, glucose is 112, white blood count of 7.6 hemoglobin is 13.0 no diarrhea no bleeding noted we will discharge patient at this time Time Spent with Patient Time attestation: Total time spent providing and/or coordinating discharge services: Exam Narrative: GENERAL: Generally well appearing, alert and oriented, in no apparent distress. She is pleasant and conversant in full sentences. HEENT: Pupils are equally round and briskly reactive to light. Extraocular muscles are intact. Oral mucous membranes are moist without lesions. NECK: The patient has no noted JVD. No adenopathy is appreciated. CHEST/LUNGS: Lungs are clear bilaterally without rhonchi, rales, or wheezes. There is no subcutaneous air appreciated. There is no tenderness to the chest wall. HEART: The patient has a regular rate and rhythm. No murmurs, rubs, or gallops are appreciated. Distal pulses are 2+. No carotid bruits appreciated. ABDOMEN:
--- NOTE | 2022-09-06 10:50 | PC.NURSE ---
Patient discharging home. IV site discontinued, tip intact, dressing applied to site. All discharge instructions and education reviewed with patient and . Both state understanding. All belongings gathered and sent home with patient. Patient accompanied to front door via wheelchair, left via private vehicle with . Denies any questions at discharge.
--- NOTE | 2022-09-08 15:58 | PC.NURSE ---
Pt states she received and understood her discharge instructions. Pt also state the nurses were really nice, I enjoyed it .
== END 2022-09-06 10:50 | disposition home or self-care (01) ==
LOC: CHSED 09:38 → CHS2ND 11:45
PROVIDERS: Nurse Practitioner; Admitting Provider Internal Medicine; Emergency Provider Emergency Medicine; PCP Family Medicine; Visit Provider Internal Medicine
DX: K57.32 Diverticulitis of large intestine without perforation or abscess without bleeding (principal); I11.0 Hypertensive heart disease with heart failure; I50.32 Chronic diastolic (congestive) heart failure; I25.10 Atherosclerotic heart disease of native coronary artery without angina pectoris; H90.3 Sensorineural hearing loss, bilateral; K59.00 Constipation, unspecified; Z79.899 Other long term (current) drug therapy
CPT/HCPCS: 36415; 74177; 80048; 80053; 81003; 83036; 83735; 85025; 85027; 93005; 96365; 96366; 96367; 96372; 99285; A9270; G0378; J1650; J1836; J1956; J7030; Q9967

== ENCOUNTER 2022-09-10 09:57 | Outpatient (CLI) | payer MEDICARE, SELFPAY ==
--- NOTE | 2022-09-21 14:42 | WPDHOLTEREM ---
Holter/Event Monitor Holter/Event Monitor Date of procedure: 09/10/22 Holter/Event Procedure: Event Monitor Indications: Heart failure Conclusion: 1. 2 days event monitor on 09/10/22. This is an event only triggered monitor. There is 1 transmission for analysis. 2. Underlying rhythm is sinus rhythm with HR at 67 bpm. 3. No premature supraventricular complexes. No supraventricular tachycardia. 4. No premature ventricular complexes. No ventricular tachycardia. 5. No significant pauses greater than 2 seconds. Underlying IVCD. 6. No symptoms available for correlation.
== END 2022-09-10 09:58 | disposition home or self-care (01) ==
LOC: CHSCARD 09:59
PROVIDERS: PCP Family Medicine
DX: I50.22 Chronic systolic (congestive) heart failure (principal); I10 Essential (primary) hypertension; I44.7 Left bundle-branch block, unspecified
CPT/HCPCS: 93270

== ENCOUNTER 2022-11-01 11:55 | Day surgery (SDC) | payer MEDICARE, SELFPAY ==
[2022-09-22 13:45] VITALS: BMI 31.8
[2022-11-01 12:14] VITALS: BP 150/76; PULSE 70; RESP 20; TEMP 36.9; O2SAT 98
[2022-11-01] MEDS: LACTATED RINGERS 1,000 ML 150 ML IV CONT (12:25)
--- NOTE | 2022-11-01 12:28 | PM.HPGS ---
History of Present Illness History of Present Illness Consent: Risks, benefits, and alternatives have been discussed and questions answered. Patient agrees to proceed with procedure. Chief complaint: Diverticulitis of LRG Intestine Narrative: Marialuisa Schofield is a 76 year old female Presents for colonoscopy. Patient had diverticulitis approximately 2 months ago. Is now healed up from this. She no longer has abdominal pain. bowel habits are normal. She presents for screening exam to ensure resolution of infection. Has had no recent bleeding. She has no fevers. Review of Systems Review of Systems: Review of systems noncontributory. [facility] Past Medical History Medical History CHF (congestive heart failure) Chronic dysfunction of left eustachian tube Healed perforation of left ear drum Heart disease Hypertension Sensorineural hearing loss of combined sites, bilateral Surgical History Surgical History (Updated 10/28/22 @ 12:13 by Lynne oMntano) S/P cholecystectomy Social History Social History (System 10/28/22 @ 12:13 by Lynne Montano) Smoking status: Never smoker Second hand tobacco smoke exposure: No Alcohol intake: never Substance use: never Lack of Transportation: No Lack of Food: Never True Current Housing: I Have Housing Concerned About Future Housing: No Difficulty Paying Gas/Electric Bills: No Difficulty Paying for Meds: No Currently Unemployed: No Education: High School Diploma/GED Difficulty w/ Childcare or Family Care: No Living arrangements: with family Additional living arrangements comments: with Spiritual care concerns: No Meds Home Medications and Allergies Home Medications Medication Instructions Recorded Confirmed Type cephalexin 500 mg capsule 500 mg PO Q12H 5 days #10 caps 01/22/22 11/01/22 Rx oseltamivir 75 mg capsule (Tamiflu) 75 mg PO Q12H 5 days #10 caps 01/22/22 11/01/22 Rx sacubitril 24 mg-valsartan 26 mg 1 tablet PO BID 05/17/22 11/01/22 History tablet (Entresto) carvedilol 6.25 mg tablet (Coreg) 6.25 mg PO BID 09/04/22 11/01/22 History sodium,potassium,mag sulfates 17.5 See Rx Instructions PO .COMPLEX 09/22/22 11/01/22 Rx gram-3.13 gram-1.6 gram oral soln #354 mL (Suprep Bowel Prep Kit) Allergies Allergy/AdvReac Type Severity Reaction Status Date / Time No Known Allergies Allergy Verified 11/01/22 12:13 Vital Signs Vital Signs - 24 hr 11/01/22 12:14 Temperature 98.4 F Pulse Rate 70 Respiratory Rate 20 Blood Pressure 150/76 H Pulse Oximetry 98 Oxygen Delivery Room Air Exam Narrative: Physical exam reveals patient to be alert. Vital Signs stable. HEENT exam is unremarkable. Patient is anicteric. Saw are clear to auscultation and to percussion. Heart is without murmur or extra sounds. Abdomen bowel sounds are present soft nontender with no organomegaly. Digital external rectal exam is normal. Assessment and Plan Assessment and plan (1) Diverticulitis of large intestine with abscess: Qualifiers: Diverticulitis bleeding: without bleeding Qualified Code(s): K57.20 - Diverticulitis of large intestine with perforation and abscess without bleeding Code(s): K57.20 - Diverticulitis of large intestine with perforation and abscess without bleeding Status: Acute Assessment and Plan: Patient had recent episode of diverticulitis which appears to have healed without incident. Plan for high-fiber diet. Colonoscopy will be performed to exclude any ongoing infection or any other explanation for her symptoms. Further recommendations could be given after endoscopy.
--- NOTE | 2022-11-01 12:56 | WPDANESEPPF ---
Anes - Initial Pre Proc Eval Procedure: Operation Date: 11/01/22 13:30 Proposed Procedures p Diagnostic Colonoscopy - David Pradhan MD Date/Time: 11/01/22 12:56 Surgeon: David Pradhan MD Pre Op Diagnosis: Diverticulitis of LRG Intestine Patient Data Age: 76 Gender: F Height: 1.68 m Weight: 88.4 kg Last Vital Signs Temp 36.9 C 11/01/22 12:14 Pulse 70 11/01/22 12:14 Resp 20 11/01/22 12:14 BP 150/76 H 11/01/22 12:14 Pulse Ox 98 11/01/22 12:14 O2 Del Method Room Air 11/01/22 12:14 Allergies Allergy/AdvReac Type Severity Reaction Status Date / Time No Known Allergies Allergy Verified 11/01/22 12:13 Home Medications Medication Instructions Recorded Confirmed Type cephalexin 500 mg capsule 500 mg PO Q12H 5 days #10 caps 01/22/22 11/01/22 Rx oseltamivir 75 mg capsule (Tamiflu) 75 mg PO Q12H 5 days #10 caps 01/22/22 11/01/22 Rx sacubitril 24 mg-valsartan 26 mg 1 tablet PO BID 05/17/22 11/01/22 History tablet (Entresto) carvedilol 6.25 mg tablet (Coreg) 6.25 mg PO BID 09/04/22 11/01/22 History sodium,potassium,mag sulfates 17.5 See Rx Instructions PO .COMPLEX 09/22/22 11/01/22 Rx gram-3.13 gram-1.6 gram oral soln #354 mL (Suprep Bowel Prep Kit) Patient hx anesthesia problems: none Family hx anesthesia problems: none Results Review: All pre-operative results and documents have been reviewed as part of the pre-operative evaluation. [facility] Past Medical History Medical History CHF (congestive heart failure) Chronic dysfunction of left eustachian tube Congestive heart failure Healed perforation of left ear drum Heart disease Hypertension Hypertension Sensorineural hearing loss of combined sites, bilateral Surgical History Surgical History S/P cholecystectomy Social History Social History Smoking status: Never smoker Second hand tobacco smoke exposure: No Alcohol intake: never Substance use: never Lack of Transportation: No Lack of Food: Never True Current Housing: I Have Housing Concerned About Future Housing: No Difficulty Paying Gas/Electric Bills: No Difficulty Paying for Meds: No Currently Unemployed: No Education: High School Diploma/GED Difficulty w/ Childcare or Family Care: No Living arrangements: with family Additional living arrangements comments: with Spiritual care concerns: No Anes - Eval Final PreProcedure Day of Procedure 11/01/22 12:56 Patient weight: obese Heart: regular rate and rhythm Lungs: clear to auscultation Airway: Mallampati scale class III Neurological: alert and oriented Last oral intake: >/= 8 hours ASA classification: III Emergent: no Anesthetic plan: proceed Anesthesia type and monitoring: general GIVS and standard monitoring Results Review: All pre-operative results and documents have been reviewed as part of the pre-operative evaluation. Informed Consent: The patient's anesthetic plan and its attendant risks and benefits were discussed with the patient/family/POA. Questions were solicited and answers provided to the satisfaction of the patient/family/POA.
[2022-11-01 13:25] VITALS: BP 98/47; PULSE 71; RESP 18; O2SAT 97
[2022-11-01 13:35] VITALS: BP 99/53; PULSE 66; RESP 18; O2SAT 100
--- NOTE | 2022-11-01 13:39 | WPDANESPN ---
Anes - Prog Note Post-Op Date/Time: 11/01/22 13:39 Cardiovascular status: normal Respiratory status: normal Airway patency: baseline Mental status: baseline Post-Op hydration status: normal Vital Signs: Last Vital Signs Temp 36.9 C 11/01/22 12:14 Pulse 66 11/01/22 13:35 Resp 18 11/01/22 13:35 BP 99/53 L 11/01/22 13:35 Pulse Ox 100 11/01/22 13:35 O2 Del Method Room Air 11/01/22 13:35 Pain Score (VAS): 0 I/O: Intake & Output 10/31/22 11/01/22 11/01/22 23:59 07:59 15:59 Intake Total 400 Balance 400 Patient Feedback: Patient satisfied with anesthetic care.
[2022-11-01 13:45] VITALS: BP 129/59; PULSE 61; RESP 18; O2SAT 100
== END 2022-11-01 13:55 | disposition home or self-care (01) ==
PROVIDERS: PCP Family Medicine; Visit Provider Internal Medicine Gastroenterology
PROC: 0DJD8ZZ Inspection of Lower Intestinal Tract, Via Natural or Artificial Opening Endoscopic (ICD-10-PCS; CPT 45378; principal; 2022-11-01 13:30)
DX: K57.30 Diverticulosis of large intestine without perforation or abscess without bleeding (principal); K64.8 Other hemorrhoids
CPT/HCPCS: 45378

== ENCOUNTER 2023-02-24 09:40 | Outpatient (CLI) | payer MEDICARE, SELFPAY ==
[2023-02-24 13:18] LABS: Hemoglobin A1C 5.6 % (<5.7)
[2023-02-24 13:31] LABS: Cholesterol 206 mg/dL (0-200); HDL Direct 68 mg/dL (40-60); LDL Cholesterol Calculated 129 mg/dL (<130); Triglycerides 47 mg/dL (0-150)
== END 2023-02-24 09:41 | disposition home or self-care (01) ==
LOC: CHSLAB 09:42
PROVIDERS: PCP Family Medicine; Visit Provider Family Medicine
DX: I10 Essential (primary) hypertension (principal); E11.9 Type 2 diabetes mellitus without complications
CPT/HCPCS: 36415; 80061; 83036

== ENCOUNTER 2023-03-15 09:48 | Outpatient (CLI) | payer MEDICARE, SELFPAY ==
[2023-03-15 10:09] LABS: Basophils Absolute Auto 0.1 K/mm3 (0.0-0.1); Basophils Percent Auto 0.6 % (0.2-1.2); Eosinophils Absolute Auto 0.4 K/mm3 (0-0.3); Eosinophils Percent Auto 4.3 % (0-4.4); Hematocrit 41.5 % (37.0-47.0); Hemoglobin 13.3 g/dL (12.0-15.0); Immature Granulocyte Absolute 0.02 K/mm3 (0.00-0.031); Immature Granulocyte Percent A 0.2 % (0-0.5); Lymphocytes Absolute Auto 2.01 K/mm3 (0.9-3.2); Lymphocytes Percent Auto 24.2 % (18.3-44.2); Mean Corpuscular Hemoglobin 31.1 pg (26-34); Mean Corpuscular Volume 97.2 fl (80-100); Mean Platelet Volume 10.4 fl (7.4-10.4); Monocytes Absolute Auto 0.7 K/mm3 (0.1-0.6); Monocytes Percent Auto 8.9 % (2.6-8.5); Neutrophils Absolute Auto 5.1 K/mm3 (1.3-6.7); Neutrophils Percent Auto 61.8 % (45.5-73.1); Platelet Count Result 198 k/mm3 (150-375); Red Blood Count 4.27 M/mm3 (4.2-5.4); Red Cell Distribution Width 13.3 % (11.5-14.5); White Blood Count 8.3 K/mm3 (4.5-10.0)
[2023-03-15 10:17] LABS: Appearance Urine Cloudy (Clear); Bacteria Urine 1+ /hpf; Bilirubin Urine Negative (Negative); Blood Urine Negative (Negative); Color Urine Yellow (Yellow); Glucose Urine UA Negative (Negative); Ketones Urine Negative (Negative); Leukocyte Esterase Ur 2+ LEU/UL (Negative); Nitrate Urine Negative (Negative); Non Pathogenic Casts 0-2; Protein Urine Negative (Negative); RBC Urine 0-2 /hpf (0-2); Specific Grav Ur 1.017 (1.001-1.035); Squamous Epithelial Cell Urine Many /hpf (Few); WBC Urine 51-100 /hpf; pH Urine 5.5 (5.0-9.0)
--- NOTE | 2023-03-15 10:19 | ECG_ITS ---
Measurements Intervals [place] Rate: 66 P: 73 CA: 222 QRS: -58 QRSD: 149 T: 51 QT: 410 QTc: 431 Interpretive Statements SINUS RHYTHM WITH FIRST DEGREE AV BLOCK LEFT AXIS DEVIATION LEFT BUNDLE BRANCH BLOCK BASELINE ARTIFACT- II, III, AVR, AVL, AVF, V1-V3 ABNORMAL ECG COMPARED TO ECG 09/04/2022 11:38:20 NO SIGNIFICANT CHANGES Electronically Signed On 03-15-2023 11:11:33 ADMINISTRATIVE MANAGER by Lokesh Casinao D.O.
[2023-03-15 10:20] LABS: Anion Gap 5 mmol/L (8-16); Blood Urea Nitrogen 16 mg/dL (7-17); Calcium 9.2 mg/dL (8.4-10.2); Carbon Dioxide 28 mmol/L (22-30); Chloride 107 mmol/L (98-107); Estimated Glomerular Filt Rate 60; Glucose 151 mg/dL (65-110); Sodium 140 mmol/L (137-145)
[2023-03-15 10:20] LABS: Add Urine Microscopic? YES
== END 2023-03-15 09:49 | disposition home or self-care (01) ==
LOC: ANHLAB 09:49
PROVIDERS: PCP Family Medicine; Visit Provider Orthopaedic Surgery
DX: M17.11 Unilateral primary osteoarthritis, right knee (principal); R53.83 Other fatigue; I44.0 Atrioventricular block, first degree; I44.7 Left bundle-branch block, unspecified; I11.0 Hypertensive heart disease with heart failure
CPT/HCPCS: 36415; 80048; 81001; 85025; 87086; 93005

== ENCOUNTER 2023-04-16 06:58 | Outpatient (CLI) | payer MEDICARE, SELFPAY ==
--- NOTE | ~2023-04-16 | MR_ITS ---
EXAMINATION: MR brain IAC wo con DATE: 04/16/2023 07:54 INDICATION: Cerebral infarction, unspecified. TECHNIQUE: Magnetic resonance imaging (MRI) of the brain, brainstem, and internal auditory canals was performed without intravenous contrast. COMPARISON: None. FINDINGS: There is no intracranial hemorrhage, acute infarction, or abnormal intracranial mass lesion . There are scattered areas of nonspecific increased T2-weighted signal intensity in the cerebral whi te matter, which is within normal limits for the patient's age. The ventricles are normal in size. Th ere is mild mucosal thickening in the ethmoid sinuses. There are likely changes of ocular lens replac ement surgeries. There is anteroposterior elongation of the ocular globes. The mastoid air cells are normal. IMPRESSION: 1. Normal aging brain. Reviewed, dictated and finalized at location A. ANCE KEEPER IMPRESSION: 1. Normal aging brain.
== END 2023-04-16 06:59 | disposition home or self-care (01) ==
LOC: CHSIMG 06:59
PROVIDERS: PCP Family Medicine; Visit Provider Family Medicine
DX: I63.9 Cerebral infarction, unspecified (principal)
CPT/HCPCS: 70551

== ENCOUNTER 2023-04-27 13:58 | Outpatient (CLI) | payer MEDICARE, SELFPAY ==
[2023-04-27 15:42] LABS: Appearance Urine Cloudy (Clear); Bacteria Urine Rare /hpf; Bilirubin Urine Negative (Negative); Blood Urine Negative (Negative); Color Urine Yellow (Yellow); Glucose Urine UA Negative (Negative); Ketones Urine Negative (Negative); Leukocyte Esterase Ur 1+ LEU/UL (Negative); Nitrate Urine Negative (Negative); Non Pathogenic Casts 0-2; Protein Urine Negative (Negative); RBC Urine 0-2 /hpf (0-2); Specific Grav Ur 1.022 (1.001-1.035); Squamous Epithelial Cell Urine Many /hpf (Few); WBC Urine 21-50 /hpf (0-3)
[2023-04-27 15:48] LABS: Albumin Level 3.9 g/dL (3.5-5.1)
[2023-04-27 15:49] LABS: INR 1.2; Prothrombin Time 15.8 Seconds (11.1-14.7)
[2023-04-27 15:50] LABS: Partial Thromboplastin Time 30.7 Seconds (22.3-36.8)
[2023-04-27 16:20] LABS: Add Urine Microscopic? YES
[2023-04-27 17:46] LABS: Urine Cotinine NEGATIVE
[2023-04-27 22:25] LABS: MRSA (PCR) DETECTED (NOT DETECTE)
== END 2023-04-27 13:59 | disposition home or self-care (01) ==
LOC: ANHSURGERY 14:04
PROVIDERS: PCP Family Medicine; Visit Provider Orthopaedic Surgery
DX: Z01.818 Encounter for other preprocedural examination (principal); M17.11 Unilateral primary osteoarthritis, right knee
CPT/HCPCS: 36415; 80307; 82040; 85610; 85730; 86850; 86900; 86901; 87086; 87088; 87641

== ENCOUNTER 2023-05-10 01:03 | Day surgery (SDC) | payer MEDICARE, SELFPAY ==
--- NOTE | 2023-04-27 13:35 | PC.NURSE ---
PRE-OP INSTRUCTIONS, PLEASE READ CAREFULLY Report to the Outpatient Waiting Room, entrance under the green pavilion located off [facility], at time _1000_ on date _05/10/23_. Planned Procedure Time: _1200_. PACK A SMALL OVERNIGHT BAG AND LEAVE IN THE CAR ALONG WITH YOUR WALKER Time changes happen often and if your time is changed the preop area will call you the afternoon before. - You and your visitor will be asked to self-screen and do not enter if you have any COVID symptoms. - A mask is optional within the hospital at this time. -VISITING HOURS 8AM-8PM Patients may have clear liquids (water, carbonated beverages, clear teas, apple juice) until 3 hours prior to surgery with a maximum of 20 ounces. - No food from midnight until time of surgery Take the following medications with a SIP of water the morning of surgery: _CARVEDILOL & TYLENOL IF NEEDED_ DO NOT STOP ANY OF YOUR OTHER PRESCRIPTION MEDICATIONS PRIOR TO SURGERY ?EXCEPT THE FOLLOWING Medications to discontinue per physician ____NONE____, Date to take last dose Please no make-up, nail syriac, hairspray, perfume, deodorant, or body powder the day of surgery. No jewelry (including any body piercings) or valuables the day of surgery, leave them at home. Please take a shower or bath the night before, or the morning of, surgery with an antibacterial soap. Wear comfortable, loose fitting clothing. - Jewelry must be removed prior to entering the operating room. Rings and piercings that are not removed may be cut off. - The hospital will not accept responsibility for valuables. - Please leave all valuables, including medications, at home the day of surgery. If you are going home after surgery, a licensed carrier driver must drive you home. - NO public transportation without another adult if you receive anesthesia. - We recommend that an adult stay with you for 24 hours following discharge. - We also recommend that you do not drive, make important decision, drink alcoholic beverages, or take any drugs that were not prescribed by your health care provider for at least 24 hours after your discharge time. Follow any additional instructions given to you from your surgeon. - CHLORHEXIDINE GLUCONATE (HIBICLENS) DIRECTED If you or anyone in your household have experienced Covid symptoms in the past week, please notify your surgeon or the nurse liaison at the phone number below for possible testing. Instructions given to _PATIENT & SPOUSE_and asked if any additional questions and then verbalized understanding. Patient advised to call surgeon office or pre surgery nurse liaison [phone] if any additional questions.
[2023-04-27 14:22] VITALS: BP 152/74; PULSE 66; RESP 18; TEMP 36.9; O2SAT 98; BMI 34.9
[2023-05-10] VITALS (12 sets, daily range): BP systolic 138–179; BP diastolic 59–88; PULSE 55–94; RESP 10–18; TEMP 35.6–36.7; O2SAT 93–100
--- NOTE | ~2023-05-10 | XR_ITS ---
EXAMINATION: [id number] DATE: 05/10/2023 13:46 INDICATION: Total right knee arthroplasty. Postop. TECHNIQUE: 2 views of right knee were obtained. COMPARISON: Right knee radiographs 03/15/2023 FINDINGS: There is a total right knee arthroplasty without patellar resurfacing in near-anatomic alig nment. No fracture. There is gas in the soft tissues, consistent with recent surgery. Anterior skin s taples are noted. IMPRESSION: 1. Total right knee arthroplasty in near-anatomic alignment. Reviewed, dictated and finalized at location E.
[2023-05-10] MEDS: TRANEXAMIC ACID 1,000MG/ISO100 1,000 MG/100 ML BAG 200 MG IVPB (09:30)
[2023-05-10] MEDS: ACETAMINOPHEN 500 MG TABLET 1000 MG PO ×2 (09:58→17:40)
[2023-05-10 10:00] LABS: INR 1.1; Prothrombin Time 14.8 Seconds (11.1-14.7)
[2023-05-10] MEDS: LACTATED RINGERS 1,000 ML 30 ML IV CONT ×2 (10:00→13:32)
--- NOTE | 2023-05-10 10:56 | WPDHPUPDATE1 ---
History and Physical Update Update Date/Time: 05/10/23 10:56 History and Physical has been reviewed, including an updated exam of the patient. There are NO changes in the patient's condition. Risks, benefits, and alternatives have been discussed and questions answered. Patient agrees to proceed with procedure.
--- NOTE | 2023-05-10 11:23 | WPDANESEPPF ---
Anes - Initial Pre Proc Eval Procedure: Operation Date: 05/10/23 11:00 Proposed Procedures p Right Total Knee Arthroplasty - Shamar Gonzales MD Date/Time: 05/10/23 11:23 Surgeon: Shamar Gonzales MD Pre Op Diagnosis: right knee DJD Patient Data Age: 77 Gender: F Height: 1.65 m Weight: 94.4 kg Last Vital Signs Temp 36.3 C L 05/10/23 09:54 Pulse 66 05/10/23 09:54 Resp 18 05/10/23 09:54 BP 138/59 L 05/10/23 09:54 Pulse Ox 100 05/10/23 09:54 O2 Del Method Room Air 05/10/23 09:54 Allergies Allergy/AdvReac Type Severity Reaction Status Date / Time No Known Allergies Allergy Verified 04/27/23 14:19 Home Medications Medication Instructions Recorded Confirmed Type sacubitril 24 mg-valsartan 26 mg 1 tablet PO BID 05/17/22 04/27/23 History tablet (Entresto) carvedilol 6.25 mg tablet (Coreg) 6.25 mg PO BID 09/04/22 04/27/23 History chlorhexidine gluconate 4 % 1 applic topical ONCE #237 mL 04/26/23 05/10/23 Rx topical liquid (Hibiclens) acetaminophen 325 mg capsule 325 mg PO QID PRN Pain 04/27/23 04/27/23 History (Tylenol) Laboratory Tests 05/10/23 09:40 PT 14.8 H Seconds (11.1-14.7) INR 1.1 Patient hx anesthesia problems: none Family hx anesthesia problems: none Results Review: All pre-operative results and documents have been reviewed as part of the pre-operative evaluation. [facility] Past Medical History Medical History CHF (congestive heart failure) Chronic dysfunction of left eustachian tube Congestive heart failure Healed perforation of left ear drum Heart disease Hypertension Hypertension Sensorineural hearing loss of combined sites, bilateral Surgical History Surgical History S/P cholecystectomy Social History Social History Smoking status: Never smoker Second hand tobacco smoke exposure: No Additional smoking assessment comments: PT DENIES ALL FORMS OF TOBACCO USE Alcohol intake: never Substance use: never Substance use type: does not use Lack of Transportation: No Lack of Food: Never True Current Housing: I Have Housing Concerned About Future Housing: No Difficulty Paying Gas/Electric Bills: No Difficulty Paying for Meds: No Currently Unemployed: No Education: High School Diploma/GED Difficulty w/ Childcare or Family Care: No Living arrangements: with family Additional living arrangements comments: with Spiritual care concerns: No Anes - Eval Final PreProcedure Day of Procedure 05/10/23 11:23 Patient weight: obese Heart: regular rate and rhythm Lungs: decreased breath sounds Airway: Mallampati scale class II Neurological: alert and oriented Last oral intake: >/= 8 hours ASA classification: III Emergent: no Anesthetic plan: proceed Anesthesia type and monitoring: general LMA and standard monitoring Results Review: All pre-operative results and documents have been reviewed as part of the pre-operative evaluation. Informed Consent: The patient's anesthetic plan and its attendant risks and benefits were discussed with the patient/family/POA. Questions were solicited and answers provided to the satisfaction of the patient/family/POA.
[2023-05-10] MEDS: ceFAZolin 2 GM/D5W 50 ML 2 GM/50 ML BAG IVPB ×2 (11:57→20:30)
[2023-05-10] MEDS: SODIUM CHLORIDE 0.9% IV 37.7 ML, MORPHINE SULFATE INJ (*CRX) 2 MG, ROPivacaine HCL 1% 2... INFILTRATE (12:06)
[2023-05-10] MEDS: TRANEXAMIC ACID 1,000 MG/10 ML AMPUL 1000 MG IV PUSH (12:57)
--- NOTE | 2023-05-10 13:20 | W.PM.PROC2 ---
Procedure Note - Detailed Date of Procedure 05/10/23 Pre-op Diagnosis right knee DJD Post-op Diagnosis Same Procedure Performed R TKA Surgeon Shamar Gonzales MD Anesthesia General Description of Procedure THE RIGHT KNEE WAS PREPPED AND DRAPED IN THE STERILE FASHION. A MIDLINE SKIN INCISION WAS MADE. A MEDIAL PARAPATELLAR ARTHROTOMY WAS MADE. THE PATELLA WAS EVERTED. THERE WAS TRICOMPARTMENT DJD. THERE WAS MINIMAL PATELLA DJD. AN INTRAMEDULLARY LAYNE WAS PLACED IN THE FEMUR. A DISTAL FEMORAL CUT WAS MADE IN 5 DEGREES OF VALGUS REMOVING APPROXIMATELY 9 MM OF BONE FROM THE DISTAL FEMUR. THE FEMUR WAS SIZED TO 62.5. A 62.5 FEMORAL CUTTING BLOCK WAS PLACED IN 3 DEGREES OF EXTERNAL ROTATION AND IN ALIGNMENT WITH JIM'S LINE AND THE TRANSEPICONDYLAR AXIS. ANTERIOR POSTERIOR AND CHAMFER CUTS WERE MADE. THE CUTS WERE EXCELLENT. NEXT AN INTRAMEDULLARY CUTTING GUIDE WAS PLACED IN THE TIBIA. A TRANS TIBIAL CUT WAS MADE ALONG THE LONG AXIS OF THE TIBIA. APPROXIMATELY 10 MM OF BONE WAS REMOVED FROM THE HIGH SIDE OF THE TIBIA. THE TIBIA WAS THEN PLANED TO A SMOOTH SURFACE. POSTERIOR FEMORAL OSTEOPHYTES WERE REMOVED FROM THE FEMORAL CONDYLES. A 67 TIBIAL TRIAL WAS PLACED IN ALIGNMENT WITH THE 1/3 MEDIAL ASPECT OF THE TIBIAL TUBERCLE. THEN A 62.5 FEMORAL TRIAL COMPONENT WAS PLACED. BOTH HAD EXCELLENT FITS. EVENTUALLY A 12 MM CR POLYETHYLENE TRIAL COMPONENT WAS PLACED. THE KNEE WAS TAKEN THROUGH A RANGE OF MOTION. THE KNEE CAME OUT TO FULL EXTENSION. THERE WAS NO ABNORMAL TILT TO THE PATELLA. THERE WAS GOOD A/P AND VARUS/VALGUS STABILITY. THERE WAS NO EXCESSIVE ROLL BACK WITH FLEXION. THE TRIAL COMPONENTS WERE REMOVED. THEN A 62.5 FEMORAL COMPONENT AND 67 TIBIAL COMPONENT WITH A 12 CR POLYETHYLENE COMPONENT WERE CEMENTED INTO PLACE. ONCE THE CEMENT WAS HARD THE KNEE WAS TAKEN THROUGH A ROM AGAIN AND FOUND TO BE STABLE WITH NO PATELLA TILT NO EXCESSIVE ROLL BACK WITH FLEXION AND GOOD STABILITY WITH COMPLETE AND FULL EXTENSION. THE KNEE WAS IRRIGATED WITH STERILE BETADINE AND WATER FOR ABOUT 3 MINUTES. THE BLEEDERS WERE CAUTERIZED. THE ARTHROTOMY WAS REPAIRED WITH NUMBER 1 VICRYL. THE SUB CUTANEOUS LAYER WITH 2-0 VICRYL AND THE SKIN WITH JUN. THE WOUND WAS WASHED AND A STERILE DRESSING WAS APPLIED. PATIENT WAS EXTUBATED. Estimated Blood Loss -150.0 Pathology None sent Complications No immediate complications Condition Stable Disposition PACU
--- NOTE | 2023-05-10 13:58 | WPDANESPNB ---
Anes - Peripheral Nerve Block Date/Time: 05/10/23 13:58 I have discussed with the patient/family/POA the placement of a peripheral nerve block for post-operative pain management, including associated risks, benefits, complications, and side effects. Alternative methods of post-operative analgesia were detailed. Questions were solicited and answers provided to the satisfaction of the patient/family/POA. Time-Out: A pre-procedural Time-Out was completed immediately before starting the procedure and confirmed: Patient Identification, Site, Procedure, Patient Position and the Availability of Requisite Equipment. Clinical Indications: Acute post-operative pain management requested by the operative surgeon. Nerve Block Insertion Note Anes-nerve block: adductor canal right Patient position: supine Skin prep: chlorhexidine Needle: 22 gauge, stimulating, insulated echogenic needle. Needle length: 80 mm Technique: ultrasound Technique comment: Done in PACU Injectate: bupivacaine 0.5% with epi 5 mcg/ml (30ml no epi) and dexamethasone (mg) (4) Observations: tolerated well Complications: none Procedure start time:: 1345 Procedure end time:: 1351
[2023-05-10] MEDS: fentaNYL CITRATE INJ (*CRX) 100 MCG/2 ML VIAL 25 MCG IV PUSH ×2 (14:00→14:06)
--- NOTE | 2023-05-10 14:50 | ADMGEN ---
This patient, Marialuisa Schofield, was admitted to 3 [facility] Surg Room 315-01. Patient/family oriented to hospital policies and general routines including ID bracelet, bed and alarms, visiting hours, pain management, procedures, bathroom and other care routines, personal items, smoking policy, room service/diet, and visiting hours. Information on how to activate the Rapid Response Team has been discussed. Patient/Family are encouraged to report perceived risks to care and to ask questions if they do not understand what they are told or what they should do.
[2023-05-10] MEDS: SODIUM CHLORIDE 0.9% IV 1,000 ML 125 ML IV CONT (16:18)
[2023-05-10] MEDS: SENNA/DOCUSATE SODIUM TABLET 2 TAB PO (17:37)
[2023-05-10] MEDS: CELECOXIB 200 MG CAPSULE PO (17:37)
[2023-05-10] MEDS: SACUBITRIL/VALSARTAN 24-26 MG TABLET 1 TAB PO (20:30)
[2023-05-10] MEDS: FAMOTIDINE 20 MG TABLET PO (20:30)
[2023-05-10] MEDS: carvediloL 25 MG TABLET PO (20:30)
[2023-05-10] MEDS: ASPIRIN 325 MG ENTERIC TABLET PO (20:34)
[2023-05-11 00:22] VITALS: BP 132/67; PULSE 69; RESP 20; TEMP 36.4; O2SAT 97
[2023-05-11] MEDS: ceFAZolin 2 GM/D5W 50 ML 2 GM/50 ML BAG IVPB ×2 (03:36→11:56)
[2023-05-11 04:50] VITALS: BP 157/63; PULSE 54; RESP 16; TEMP 36.2; O2SAT 96
[2023-05-11 07:30] LABS: Basophils Percent Auto 0.2 % (0.2-1.2); Hematocrit 36.9 % (37.0-47.0); Hemoglobin 11.8 g/dL (12.0-15.0); Immature Granulocyte Absolute 0.05 K/mm3 (0.00-0.031); Immature Granulocyte Percent A 0.3 % (0-0.5); Lymphocytes Absolute Auto 1.34 K/mm3 (0.9-3.2); Lymphocytes Percent Auto 9.1 % (18.3-44.2); Mean Corpuscular Hemoglobin 30.9 pg (26-34); Mean Corpuscular Volume 96.6 fl (80-100); Mean Platelet Volume 11.1 fl (7.4-10.4); Monocytes Absolute Auto 0.8 K/mm3 (0.1-0.6); Monocytes Percent Auto 5.3 % (2.6-8.5); Neutrophils Absolute Auto 12.6 K/mm3 (1.3-6.7); Neutrophils Percent Auto 85.1 % (45.5-73.1); Platelet Count Result 172 k/mm3 (150-375); Red Blood Count 3.82 M/mm3 (4.2-5.4); Red Cell Distribution Width 12.9 % (11.5-14.5); White Blood Count 14.8 K/mm3 (4.5-10.0)
[2023-05-11 07:51] VITALS: BP 128/64; PULSE 55; RESP 16; TEMP 35.8; O2SAT 96
[2023-05-11 08:00] LABS: Anion Gap 6 mmol/L (4-12); Blood Urea Nitrogen 24 mg/dL (7-17); Calcium 8.6 mg/dL (8.4-10.2); Carbon Dioxide 22 mmol/L (22-30); Chloride 106 mmol/L (98-107); Estimated CRCL calculation 39 ml/min; Estimated Glomerular Filt Rate 43; Glucose 142 mg/dL (65-110); Sodium 134 mmol/L (137-145)
[2023-05-11] MEDS: SENNA/DOCUSATE SODIUM TABLET 2 TAB PO (09:05)
[2023-05-11] MEDS: SACUBITRIL/VALSARTAN 24-26 MG TABLET 1 TAB PO (09:05)
[2023-05-11] MEDS: ASPIRIN 325 MG ENTERIC TABLET PO (09:05)
[2023-05-11] MEDS: FAMOTIDINE 20 MG TABLET PO (09:05)
[2023-05-11 09:06] VITALS: PULSE 59
[2023-05-11] MEDS: CELECOXIB 200 MG CAPSULE PO (09:06)
[2023-05-11] MEDS: carvediloL 25 MG TABLET PO (09:06)
[2023-05-11] MEDS: polyethylene glycoL 3350 17 GM POWD.PACK PO (09:08)
--- NOTE | 2023-05-11 10:35 | PM.PNORT ---
Progress Note: A&P Assessment and Plan (1) Osteoarthritis of both knees: Code(s): M17.0 - Bilateral primary osteoarthritis of knee Status: Acute Assessment and Plan: RIGHT TKA POD DOING WELL. OK TO DC HOME F/U IN 3 WEEKS. Subjective Subjective Date/Time Seen: 05/11/23 10:35 Interval history: POD 1 DOING WELL. NO CALF PAIN. GOOD PROGRESS WITH PT Exam Extrem: Other: VSS AFEBRILE DRESSING DRY NV INTACT NEG HOMANS SIGN, CALF SOFT NON TENDER Objective Data Vital Signs Vital Signs: Vital Signs - 24 hr 05/10/23 13:32 05/10/23 13:45 05/10/23 14:00 Temperature 36.5 C Pulse Rate 91 72 76 Respiratory Rate 12 11 L 10 L Blood Pressure 179/88 H 149/60 H 156/60 H Pulse Oximetry 98 100 95 Oxygen Delivery Simple Face Mask Simple Face Mask Room Air Oxygen Flow Rate 6 6 05/10/23 14:15 05/10/23 14:34 05/10/23 14:50 Temperature 36.7 C Pulse Rate 94 69 64 Respiratory Rate 12 12 16 Blood Pressure 158/61 H 147/65 H 151/71 H Pulse Oximetry 94 94 93 Oxygen Delivery Room Air Room Air Oxygen Flow Rate 05/10/23 15:05 05/10/23 15:35 05/10/23 16:35 Temperature 36.3 C L 35.6 C L 35.6 C L Pulse Rate 67 72 55 L Respiratory Rate 14 18 18 Blood Pressure 155/78 H 161/88 H 169/83 H Pulse Oximetry 96 95 95 Oxygen Delivery Oxygen Flow Rate 05/10/23 20:30 05/10/23 20:15 05/10/23 20:00 Temperature 36.0 C L Pulse Rate 76 76 Respiratory Rate 16 Blood Pressure 155/88 H Pulse Oximetry 96 Oxygen Delivery Room Air Oxygen Flow Rate 05/11/23 00:22 05/11/23 04:50 05/11/23 07:51 Temperature 36.4 C L 36.2 C L 35.8 C L Pulse Rate 69 54 L 55 L Respiratory Rate 20 16 16 Blood Pressure 132/67 157/63 H 128/64 Pulse Oximetry 97 96 96 Oxygen Delivery Oxygen Flow Rate 05/11/23 09:06 05/11/23 09:24 Temperature Pulse Rate 59 L Respiratory Rate Blood Pressure Pulse Oximetry Oxygen Delivery Room Air Oxygen Flow Rate Intake/Output Intake/Output: Intake & Output 05/08/23 05/09/23 05/10/23 05/11/23 23:59 23:59 23:59 23:59 Intake Total 1265 1490 Balance 1265 1490 Meds/Results Medications: Active Medications Generic Name Dose Route Start Last Admin Trade Name Freq PRN Reason Stop Dose Admin Acetaminophen 1,000 mg 05/10/23 14:37 05/10/23 17:40 Acetaminophen 500 Mg Tablet PO 1,000 mg Q6H PRN Administration Pain Rated 1-3 Aspirin 325 mg 05/10/23 21:00 05/11/23 09:05 Aspirin 325 Mg Enteric Tablet PO 325 mg Q12HR MARYAM Administration Carvedilol 25 mg 05/10/23 21:00 05/11/23 09:06 Carvedilol 25 Mg Tablet PO 25 mg Q12HR MARYAM Administration Celecoxib 200 mg 05/10/23 17:00 05/11/23 09:06 Celecoxib 200 Mg Capsule PO 200 mg BIDWM MARYAM Administration Diazepam 5 mg 05/10/23 14:37 Diazepam (*Crx) 5 Mg Tablet PO Q8H PRN Spasms Diphenhydramine HCl 25 mg 05/10/23 14:37 Diphenhydramine Hcl Inj 50 Mg/Ml Vial IV PUSH Q6H PRN Itching Famotidine 20 mg 05/10/23 21:00 05/11/23 09:05 Famotidine 20 Mg Tablet PO 20 mg Q12HR MARYAM Administration Cefazolin Sodium 2 gm in 50 mls @ 100 mls/hr 05/10/23 20:00 05/11/23 04:10 Ancef 2 Gm/D5w 50 Ml IVPB 05/11/23 12:29 Infused Q8H MARYAM Infusion Naloxone HCl 0.1 mg 05/10/23 14:37 Naloxone Hcl 0.4 Mg/Ml Vial IV PUSH Q2M PRN Opiate Reversal Ondansetron HCl 4 mg 05/10/23 14:37 Ondansetron Inj 4 Mg/2 Ml Vial IV PUSH Q4H PRN Nausea And Vomiting Oxycodone/Acetaminophen 1 tablet 05/10/23 14:37 Oxycodone/Acetaminophen (*Crx) 5-325 Mg Tablet PO Q4H PRN Pain Rated 4-6 Oxycodone/Acetaminophen 2 tablet 05/10/23 14:37 Oxycodone/Acetaminophen (*Crx) 5-325 Mg Tablet PO Q6H PRN Pain Rated 7-10 Polyethylene Glycol 17 gm 05/11/23 09:00 05/11/23 09:08 Polyethylene Glycol 3350 17 Gm Powd.Pack PO 17 gm QAM MARYAM Administration Sacubitril/Valsartan 1 tab 04/15
[2023-05-11] MEDS: oxyCODONE/ACETAMINOPHEN (*CRX) 5-325 MG TABLET 1 TABLET PO (11:55)
[2023-05-11 12:00] VITALS: BP 108/51; PULSE 68; RESP 16; TEMP 36.7; O2SAT 97
--- NOTE | 2023-05-11 12:47 | PM.DS ---
DS: Admitting Diagnosis Discharge Date 05/11/23 Admitting Diagnosis RIGHT KNEE DJD DS: Discharge Diagnosis Discharge Diagnosis (1) Osteoarthritis of both knees: Code(s): M17.0 - Bilateral primary osteoarthritis of knee Status: Inactive Plan OK TO DC HOME F/U IN 3 WEEKS DS: Summary Hospital Course Reason for hospitalization: RIGHT TKA Hospital Course: PATIENT WAS ADMITTED S/P TOTAL KNEE ARTHROPLASTY FOR POSTOPERATIVE MEDICAL MANAGEMENT, PAIN CONTROL AND MOBILIZATION WITH PHYSICAL AND OCCUPATIONAL THERAPY. THE PATIENT PROGRESSED WELL WITH PT/OT. LABS AND VITALS REMAINED STABLE AND PAIN WELL CONTROLLED. THE PATIENT HAS BEEN CLEARED TO BE DISCHARGED HOME. FOLLOW UP APPOINTMENT SCHEDULED. DISCHARGE INSTRUCTIONS DISCUSSED AT LENGTH WITH THE PATIENT. MEDICATIONS REVIEWED. Status at Discharge Cognitive/behavioral status at discharge: STABLE Time Spent with Patient Time attestation: Total time spent providing and/or coordinating discharge services: Exam Narrative: VSS AFEBRILE DRESSING DRY NV INTACT NEG HOMANS SIGN CALF SOFT NON TENDER DS: Data Data Completed and Pending Labs on day of discharge: Labs from last 24 hours 05/11/23 06:36 WBC 14.8 H RBC 3.82 L Hgb 11.8 L Hct 36.9 L MCV 96.6 MCH 30.9 MCHC 32.0 RDW 12.9 Plt Count 172 MPV 11.1 H Immature Gran % (Auto) 0.3 Neut % (Auto) 85.1 H Lymph % (Auto) 9.1 L Burke % (Auto) 5.3 Eos % (Auto) 0.0 Baso % (Auto) 0.2 Lymph # (Auto) 1.34 Burke # (Auto) 0.8 H Eos # (Auto) 0.0 Baso # (Auto) 0.0 Abs Immat Gran (auto) 0.05 H Absolute Neuts (auto) 12.6 H Absolute Nucleated RBC 0.000 Nucleated RBC % 0.0 Sodium 134 L Potassium 5.0 Chloride 106 Carbon Dioxide 22 Anion Gap 6 L BUN 24 H Creatinine 1.20 H Estim Creat Clear Calc 39 Estimated GFR 43 L Glucose 142 H Calcium 8.6 Procedures/Treatments: RIGHT TKA Discharge Plan Discharge Patient Disposition: Home Health Service Discharge Instructions: SHEELA GONZALES M.D. [facility] [address] [facility] [address] [place] [address] POST OPERATIVE DISCHARGE INSTRUCTIONS FOLLOWING TOTAL KNEE REPLACEMENT SURGERY ? Your dressing will be changed prior to your discharge. You will be sent home with one additional dressing to be changed on post op day 7 by the home health RN. Your torie will be removed on the 14th day after surgery and steri-strips will be placed. Please practice good hand hygiene and do not touch your incision in order to prevent infection. ? You may shower with your dressing but do not submerge in a bath tub. ? Do not drive or operate machinery until you are released by Dr. Gonzales. ? Do not walk without a walker for any reason until you are released by Dr. Gonzales. ? Continue to use your ice machine. Please use a towel or pillow case to protect your skin before applying your ice machine. ? Do NOT place a pillow under your knee. You may use a pillow from the calf down if needed. This will prevent a flexion contracture postoperatively. ? You may begin use of your CPM machine at home if you have been given one pre-operatively. DO NOT USE WHILE YOU ARE SLEEPING. ? Your first post op appointment was sent to you via mail preoperatively. If you have any questions or are unable to make your appointment, please contact our office for scheduling questions. ? Your medications have been sent to your pharmacy. You have been sent home with pain medication. We have also sent you with a stool softener as narcotics can cause constipation. Please keep this in mind during your postoperative recovery. If you are not experiencing regular bowel movements, please contact our office for further instruction. ? Please contact our office with any questions/concerns regarding your knee at [phone]. TAKE 2 ASPIRIN A DAY (325 MG) FOR 3 WEEKS FOR BLOOD CLOT PREVENTION Patient Instructions: Antibiotic F
== END 2023-05-11 13:30 | disposition home health service (06) ==
LOC: ANHSURGERY 09:03 → ANH3MEDSUR 14:39
PROVIDERS: PCP Family Medicine; Visit Provider Orthopaedic Surgery
PROC: (CPT 27447; principal; 2023-05-10 11:00)
DX: M17.11 Unilateral primary osteoarthritis, right knee (principal); G89.18 Other acute postprocedural pain; I11.0 Hypertensive heart disease with heart failure; I50.9 Heart failure, unspecified; E66.9 Obesity, unspecified; Z68.34 Body mass index [BMI] 34.0-34.9, adult
CPT/HCPCS: 27447; 64447; 36415; 73560; 80048; 80307; 82040; 85025; 85610; 85730; 86850; 86900; 86901; 87086; 87641; 97110; 97161; 97165; 97530; A9270; C1713; C1776; J0171; J0690; J1100; J1885; J2270; J2405; J2704; J2795; J3010; J3370; J7030; J7120

== ENCOUNTER 2023-05-20 17:39 | Emergency (ER) | payer MEDICARE, SELFPAY ==
--- NOTE | ~2023-05-20 | XR_ITS ---
EXAM: XR abdomen obstructive series DATE: 05/20/2023 17:59 HISTORY: pain/constipation x2 days . COMPARISON: None available. FINDINGS: Clear lung bases. Cholecystectomy clips. Normal bowel gas pattern. No organomegaly. Granul omatous splenic calcifications. Lumbar degenerative disc disease. Bilateral hip osteoarthritis. Osteo penia. Multiple pelvic phleboliths. IMPRESSION: No radiographic evidence of obstruction or ileus. Reviewed, dictated and finalized at location K.
[2023-05-20 17:39] VITALS: BP 98/58; PULSE 76; RESP 18; TEMP 36.6; O2SAT 96
--- NOTE | 2023-05-20 17:40 | ED.GENADULT ---
HPI - General Adult General Chief complaint: Unspecified Stated complaint: constipation Time Seen by Provider: 05/20/23 17:39 Source: patient Mode of arrival: ambulatory Limitations: no limitations History of Present Illness HPI narrative: patient is a 77-year-old female with a right total knee replacement and Percocet use over the past week. She is having constipation side effects. She also uses pain medicine from time to time for her diverticulitis. She made a bowel movement 3 days ago. Onset (ago): day(s) (3) Location: abdomen ( Full of stool) Radiation: non-radiation Severity: mild Severity scale (1-10): 2 Quality: aching Pain Consistency: intermittent Relieving factors: none Exacerbating factors: none Associated symptoms: denies other symptoms Treatments prior to arrival: other ( stool softeners and other methods attempted without success) Related Data Home Medications Medication Instructions Recorded Confirmed sacubitril 24 mg-valsartan 26 mg 1 tablet PO BID 05/17/22 05/20/23 tablet (Entresto) acetaminophen 325 mg capsule 325 mg PO QID PRN Pain 04/27/23 05/20/23 (Tylenol) carvedilol 25 mg tablet (Coreg) 25 mg PO BID 05/10/23 05/20/23 Allergies Allergy/AdvReac Type Severity Reaction Status Date / Time No Known Allergies Allergy Verified 05/20/23 17:40 Review of Systems Review of Systems: All systems reviewed & are unremarkable except as noted in HPI and below Constitutional: Constitutional: Reports no additional constitutional complaints Eyes: Eyes: Reports no additional eye complaints ENT: Reports system reviewed and no additional complaints, except as documented Cardiovascular: Cardiovascular: Reports no additional cardiovascular complaints Respiratory: Respiratory: Reports no additional respiratory complaints Gastrointestinal: Gastrointestinal: Reports no additional gastrointestinal complaints Genitourinary: Genitourinary: Reports no additional female genitourinary complaints Musculoskeletal: Musculoskeletal: Reports no additional musculoskeletal complaints Integumentary/Breasts: Skin/Breast: Reports system reviewed and no additional complaints, except as docu Neurologic: Reports system reviewed and no additional complaints, except as documented Psychiatric: Psychiatric: Reports no additional psychiatric complaints Endocrine: Endocrine: Reports no additional endocrine complaints Hematologic/Lymphatic: Hematologic/Lymphatic: Reports no additional hematologic/lymphatic complaints Allergic/Immunologic: Allergic/Immunologic: Reports no additional allergic/immunologic complaints [facility] Past Medical History Medical History CHF (congestive heart failure) Chronic dysfunction of left eustachian tube Congestive heart failure Healed perforation of left ear drum Heart disease Hypertension Hypertension Osteoarthritis of both knees Sensorineural hearing loss of combined sites, bilateral Surgical History Surgical History S/P cholecystectomy Social History Social History Smoking status: Never smoker Second hand tobacco smoke exposure: No Additional smoking assessment comments: PT DENIES ALL FORMS OF TOBACCO USE Alcohol intake: never Substance use: never Substance use type: does not use Do You Feel Safe in your Home?: Yes Lack of Transportation: No Lack of Food: Never True Current Housing: I Have Housing Concerned About Future Housing: No Difficulty Paying Gas/Electric Bills: No Difficulty Paying for Meds: No Currently Unemployed: No Education: High School Diploma/GED Difficulty w/ Childcare or Family Care: No Living arrangements: with family Additional living arrangements comments: with Spiritual care concerns: No Exam Const: General: cooperative, healthy appearing an
[2023-05-20] MEDS: oxyCODONE/ACETAMINOPHEN (*CRX) 5-325 MG TABLET 1 TABLET PO (18:31)
[2023-05-20] MEDS: MAGNESIUM CITRATE 300 ML BTL 150 ML PO (19:10)
--- NOTE | 2023-05-20 19:12 | PC.NURSE ---
Assumed care of pt at this time. Pt medicated as ordered. Family at bedside. Side rails up x 2. Call light in reach.
--- NOTE | 2023-05-20 19:39 | PC.NURSE ---
PT up to bedside commode with positive response from Mag citrate. Pt reports is having productive BM and feeling better. Spouse remains in room. PT afforded some privacy and will reassess shortly.
--- NOTE | 2023-05-20 19:53 | ED.GENADULT ---
HPI - General Adult General Chief complaint: Unspecified Stated complaint: constipation Time Seen by Provider: 05/20/23 17:39 Source: patient Mode of arrival: ambulatory Limitations: no limitations History of Present Illness Location: abdomen ( Full of stool) Severity scale (1-10): 2 Quality: aching Relieving factors: none Exacerbating factors: none Associated symptoms: denies other symptoms Treatments prior to arrival: other ( stool softeners and other methods attempted without success) Related Data Home Medications Medication Instructions Recorded Confirmed sacubitril 24 mg-valsartan 26 mg 1 tablet PO BID 05/17/22 05/20/23 tablet (Entresto) acetaminophen 325 mg capsule 325 mg PO QID PRN Pain 04/27/23 05/20/23 (Tylenol) carvedilol 25 mg tablet (Coreg) 25 mg PO BID 05/10/23 05/20/23 Allergies Allergy/AdvReac Type Severity Reaction Status Date / Time No Known Allergies Allergy Verified 05/20/23 17:40 [facility] Past Medical History Medical History CHF (congestive heart failure) Chronic dysfunction of left eustachian tube Congestive heart failure Healed perforation of left ear drum Heart disease Hypertension Hypertension Osteoarthritis of both knees Sensorineural hearing loss of combined sites, bilateral Surgical History Surgical History S/P cholecystectomy Social History Social History Smoking status: Never smoker Second hand tobacco smoke exposure: No Additional smoking assessment comments: PT DENIES ALL FORMS OF TOBACCO USE Alcohol intake: never Substance use: never Substance use type: does not use Do You Feel Safe in your Home?: Yes Lack of Transportation: No Lack of Food: Never True Current Housing: I Have Housing Concerned About Future Housing: No Difficulty Paying Gas/Electric Bills: No Difficulty Paying for Meds: No Currently Unemployed: No Education: High School Diploma/GED Difficulty w/ Childcare or Family Care: No Living arrangements: with family Additional living arrangements comments: with Spiritual care concerns: No Course Vital Signs Vital signs: Vital Signs Temperature 36.6 C 05/20/23 17:39 Pulse Rate 76 05/20/23 17:39 Respiratory Rate 18 05/20/23 17:39 Blood Pressure 98/58 L 05/20/23 17:39 Pulse Oximetry 96 05/20/23 17:39 Oxygen Delivery Room Air 05/20/23 17:39 Temperature 36.6 C 05/20/23 17:39 Pulse Rate 76 05/20/23 17:39 Respiratory Rate 18 05/20/23 17:39 Blood Pressure 98/58 L 05/20/23 17:39 Pulse Oximetry 96 05/20/23 17:39 Oxygen Delivery Room Air 05/20/23 17:39 Medical Decision Making Vital Signs Vital Signs: Vital Signs Temperature 36.6 C 05/20/23 17:39 Pulse Rate 76 05/20/23 17:39 Respiratory Rate 18 05/20/23 17:39 Blood Pressure 98/58 L 05/20/23 17:39 Pulse Oximetry 96 05/20/23 17:39 Oxygen Delivery Room Air 05/20/23 17:39 Temperature 36.6 C 05/20/23 17:39 Pulse Rate 76 05/20/23 17:39 Respiratory Rate 18 05/20/23 17:39 Blood Pressure 98/58 L 05/20/23 17:39 Pulse Oximetry 96 05/20/23 17:39 Oxygen Delivery Room Air 05/20/23 17:39 Discharge Plan Discharge Clinical Impression: Constipation Qualifiers: Constipation type: unspecified constipation type Qualified Code(s): K59.00 - Constipation, unspecified Patient Disposition: Home, Self-Care Condition: Stable Additional Instructions: please follow-up with the primary doctor in the next week. Please use stool softeners up to 3 times a day. Also use MiraLax up to 3 times a day. After 2 days of no bowel movement, you may use magnesium citrate drink or Fleet enema. Prescriptions: No Action Entresto 24-26 mg tablet 1 tablet PO BID celecoxib [Celebrex] 200 mg capsule 200 mg PO BID 30 Days
--- NOTE | 2023-05-20 19:53 | PC.NURSE ---
PT had moderate amount of hard light brown BM with some liquid BM as well. Pt states feels much better and feels empty now. Pt placed back in bed. Family at bedside. ERP aware and will plan for discharge. PT states is ready to go home.
[2023-05-20 20:10] VITALS: BP 125/60; PULSE 76; RESP 16; TEMP 36.3; O2SAT 99
== END 2023-05-20 20:12 | disposition home or self-care (01) ==
LOC: CHSED 18:19
PROVIDERS: Emergency Provider Emergency Medicine; PCP Family Medicine
DX: K59.00 Constipation, unspecified (principal); Z96.651 Presence of right artificial knee joint; I11.0 Hypertensive heart disease with heart failure; I50.9 Heart failure, unspecified; F11.90 Opioid use, unspecified, uncomplicated
CPT/HCPCS: 74019; 99283; A9270

== ENCOUNTER 2023-06-06 12:09 | Outpatient (RCR) | payer MEDICARE, SELFPAY ==
--- NOTE | 2023-06-06 12:59 | PTOPEVAL1 ---
Assessment and note entered by Justin Martini Evaluation Information Assessment Status Evaluation Diagnosis right TKA Onset 05/10/23 Subjective Information Pt. reports she underwent a right TKA on 05/10/23. She states that she did a couple HH therapy sessions, but has not been exercising regularly. She reports that she suffered a bowel obstruction after surgery that set her back in regards to therapy participation. She states that she is not doing exercise daily. She reports that prior to surgery she was walking without an AD. She states that she does not drive, and has not for a long time. She states that her laundry is downstairs and she has been unable to do laundry. she reports that she is currently using a walker. She states that her goal is to safely do stairs and return to walking normal without an AD. Reported Pain Level Pain Score 4: Self Report Assessment PT Clinical Summary Pt. is a 77 year old female who enters the clinic 4 weeks post right TKA. She presents with impaired gait, impaired right knee ROM, impaired l .e. strength and functional decline. Continued skilled PT is indicated in order to improve these areas to allow the pt. to be able to complete all IADL's and return to walking without an AD. Plan of Care Interventions Electrical Stimulation,Gait Training,Hot Pack/Cold Pack,Manual Therapy,Neuro Re-education,Patient/ Caregiver Educati,Therapeutic Activities, Therapeutic Exercise PT Services Indicated Yes Treatment Frequency and 3x/week x 10 visits Duration These treatments will address the objective and functional deficits as defined above. The patient will be advanced safely and appropriately in order for the patient to progress towards his/her prior level of function. Additional exercises will be introduced and as well as a comprehensive home exercise program upon discharge, if needed, ?to ensure carryover of functional gains achieved in the clinic. This treatment plan has been reviewed and agreement upon by the patient.
--- NOTE | 2023-06-06 12:59 | OPREHPOC ---
Outpatient Therapy Plan of Care This is a Multidisciplinary Plan of Care that may contain components documented by all disciplines (PT, OT, and ST.) PT Problem 1 PT Problem #1 Knowledge Deficit PT Goal 1 Goal Pt. will be independent with a HEP addressing ROM rastafarian and strength Target Visit 2 PT Problem 2 PT Problem #2 Impaired Range of Motion PT Goal 1 Goal Pt. will achieve 0-120 degrees right knee active ROM Target Visit 10 PT Problem 3 PT Problem #3 Impaired Gait PT Goal 1 Goal Pt. will ambulates over level surface for 6 minutes without an AD covering a distance of 800' or greater with equal right and left stance time. Pt. navigate steps with reciprocal pattern for 10 steps. Target Visit 10 PT Problem 4 PT Problem #4 Impaired Functional Mobil PT Goal 1 Goal Pt. will present with less than 30% limitation on the LEFS Target Visit 10
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
--- NOTE | 2023-07-01 17:25 | OPREHPOC ---
Outpatient Therapy Plan of Care This is a Multidisciplinary Plan of Care that may contain components documented by all disciplines (PT, OT, and ST.) PT Problem 1 PT Problem #1 Knowledge Deficit PT Goal 1 Goal Pt. will be independent with a HEP addressing ROM episcopal and strength Target Visit 2 Progress Met PT Problem 2 PT Problem #2 Impaired Range of Motion PT Goal 1 Goal Pt. will achieve 0-120 degrees right knee active ROM Target Visit 18 Progress Not Met Comment continue PT Problem 3 PT Problem #3 Impaired Gait PT Goal 1 Goal Pt. will ambulates over level surface for 6 minutes without an AD covering a distance of 800' or greater with equal right and left stance time. Pt. navigate steps with reciprocal pattern for 10 steps. Target Visit 18 Progress Not Met Comment continue PT Problem 4 PT Problem #4 Impaired Functional Mobil PT Goal 1 Goal Pt. will present with less than 30% limitation on the LEFS Target Visit 18 Progress Not Met Comment continue
--- NOTE | 2023-07-01 17:25 | PTOPREEVAL ---
Assessment and note entered by JT File, PT Evaluation Information Assessment Status Re-evaluation Diagnosis right TKA Onset 05/10/23 Subjective Information patient reports she saw the MD yesterday. she reports she slipped in the bathroom and did not fall, but tweaked the knee. she reports the MD told her to take it easy for a few days. she has increased pain with standing and walking since the incident in the bathroom. Reported Pain Level Pain Score 4: Self Report Assessment PT Clinical Summary mrs. chavez presents to skilled PT for her 10th skilled therapy visit s/p R TKA. she arrives to therapy today with continued pain, and increased pain recently as of a slight injury to the R knee when she slipped in a bathroom. compared to her initial evaluation, she has made progress in strength, rom, and gait mechanics. however, her R knee rom is slightly worsened from her best measurement since her slipping injury. she would benefit from continued skilled PT to continue to work on improving her objective/functional deficits and progress towards achievement of all goals to improve her functional activity performance and quality of life. Plan of Care Interventions Electrical Stimulation,Gait Training,Hot Pack/Cold Pack,Manual Therapy,Neuro Re-education,Patient/ Caregiver Educati,Therapeutic Activities, Therapeutic Exercise PT Services Indicated Yes Treatment Frequency and continue skilled PT 2x weekly for 8 more visits Duration These treatments will address the objective and functional deficits as defined above. The patient will be advanced safely and appropriately in order for the patient to progress towards his/her prior level of function. Additional exercises will be introduced and as well as a comprehensive home exercise program upon discharge, if needed, ?to ensure carryover of functional gains achieved in the clinic. This treatment plan has been reviewed and agreement upon by the patient.
--- NOTE | 2023-08-03 15:25 | OPREHPOC ---
Outpatient Therapy Plan of Care This is a Multidisciplinary Plan of Care that may contain components documented by all disciplines (PT, OT, and ST.) PT Problem 1 PT Problem #1 Knowledge Deficit PT Goal 1 Goal Pt. will be independent with a HEP addressing ROM roman catholic and strength Target Visit 2 Progress Met PT Problem 2 PT Problem #2 Impaired Range of Motion PT Goal 1 Goal Pt. will achieve 0-120 degrees right knee active ROM Target Visit 24 Progress Not Met Comment continue PT Problem 3 PT Problem #3 Impaired Gait PT Goal 1 Goal Pt. will ambulates over level surface for 6 minutes without an AD covering a distance of 800' or greater with equal right and left stance time. met Pt. navigate steps with reciprocal pattern for 16 steps. Pt. to navigate steps reciprocally with 1 hand rail hold. Pt. to squat to lift ball from floor x5 bouts to return to picking weeds outside her home. Target Visit 24 Progress Partially Met Comment continue PT Problem 4 PT Problem #4 Impaired Functional Mobil PT Goal 1 Goal Pt. will present with less than 30% limitation on the LEFS Target Visit 18 Progress Not Met Comment continue
--- NOTE | 2023-08-03 15:25 | PTOPREEVAL ---
Assessment and note entered by JT File, PT Evaluation Information Assessment Status Re-evaluation Diagnosis right TKA Onset 05/10/23 Subjective Information patient reports she continues to have some pain along the front of the R knee. she reports she also continues to have difficulty with bending the knee. she reports she has not attempted stairs at home due to fear of not being able to get back up the steps. she reports difficulty with stopping to get stuff off the floor. Reported Pain Level Pain Score 1: Self Report Assessment PT Clinical Summary mrs. chavez presents to skilled PT services for 18th skilled PT visit s/p R TKA. she is ambulating without an AD, but continues to complain of deficits in functional activities such as steps, getting down to garden/weed, and stooping to get an object off the floor. she has mad progress towards all goals, but lacks achievement of rom and functional goals. due to her continued deficits and decreased functional activity performance, she would benefit from continued skilled PT to progress towards and achieve all remaining goals. Plan of Care Interventions Gait Training,Manual Therapy,Neuro Re-education, Patient/Caregiver Educati,Therapeutic Activities, Therapeutic Exercise PT Services Indicated Yes Treatment Frequency and continue skilled PT 2x weekly for 6 more visits ( Duration 24 total) These treatments will address the objective and functional deficits as defined above. The patient will be advanced safely and appropriately in order for the patient to progress towards his/her prior level of function. Additional exercises will be introduced and as well as a comprehensive home exercise program upon discharge, if needed, ?to ensure carryover of functional gains achieved in the clinic. This treatment plan has been reviewed and agreement upon by the patient.
--- NOTE | 2023-08-25 13:51 | OPREHPOC ---
Outpatient Therapy Plan of Care This is a Multidisciplinary Plan of Care that may contain components documented by all disciplines (PT, OT, and ST.) PT Problem 1 PT Problem #1 Knowledge Deficit PT Goal 1 Goal Pt. will be independent with a HEP addressing ROM amish and strength Target Visit 2 Progress Met PT Problem 2 PT Problem #2 Impaired Range of Motion PT Goal 1 Goal Pt. will achieve 0-120 degrees right knee active ROM Target Visit 24 Progress Not Met Comment continue PT Problem 3 PT Problem #3 Impaired Gait PT Goal 1 Goal Pt. will ambulates over level surface for 6 minutes without an AD covering a distance of 800' or greater with equal right and left stance time. met Pt. navigate steps with reciprocal pattern for 16 steps. not met Pt. to navigate steps reciprocally with 1 hand rail hold. met for 1 hand rail, but not reciprocal Pt. to squat to lift ball from floor x5 bouts to return to picking weeds outside her home. met Target Visit 24 Progress Partially Met Comment continue PT Problem 4 PT Problem #4 Impaired Functional Mobil PT Goal 1 Goal Pt. will present with less than 30% limitation on the LEFS Target Visit 18 Progress Not Met Comment continue
--- NOTE | 2023-08-25 13:52 | PTOPDC ---
Assessment and note entered by JT File, PT Evaluation Information Assessment Status Discharge Diagnosis right TKA Onset 05/10/23 Subjective Information patient reports she feels alright today. she reports she was a little sore in the R knee and lower back after her last therapy. she reports she did try heat and no meds last night and this left her a bit sore. she is curious about sleeping on her side now, and ability to go up and down basement stairs. Reported Pain Level Pain Score 2: Self Report Assessment PT Clinical Summary mrs. chavez presents to skilled PT for her 24th skilled PT visit since her initial evaluation post R TKA. she presents with full R knee extension active rom, and 113 degrees active R knee flexion rom. she lack achievement of goals for LEFS score, stair ambulation, and R knee active rom. however, she has made progress towards all goals, and is functional around the home and community. she was educated in benefits of continuing HEP at home, and plan to DC skilled PT today. Plan of Care PT Services Indicated Yes
== END 2023-08-25 17:56 | disposition home or self-care (01) ==
LOC: CHSPT 12:09
PROVIDERS: Visit Provider Orthopaedic Surgery
DX: Z47.1 Aftercare following joint replacement surgery (principal); Z96.651 Presence of right artificial knee joint
CPT/HCPCS: 97014; 97016; 97110; 97112; 97161; 97530; G0283

== ENCOUNTER 2023-07-28 11:55 | Outpatient (CLI) | payer MEDICARE, SELFPAY ==
--- NOTE | ~2023-07-28 | CT_ITS ---
EXAMINATION: CT abdomen pelvis wo con DATE: 07/28/2023 12:15 INDICATION: Right flank pain. Microscopic hematuria. TECHNIQUE: Computed tomography (CT) of the abdomen and pelvis was performed without intravenous contr ast. Automated exposure control and iterative reconstruction technique were employed. The dose-length product was 925.17 mGy-cm. COMPARISON: 09/06/2022 FINDINGS: Tiny bilateral pleural effusions. Unchanged mild discoid atelectasis/scarring in the right lower lobe . Heart size is normal. No pericardial effusion. Cholecystectomy clips the gallbladder fossa. Suggest ion of hepatic cirrhosis with liver surface nodularity most prominent in the right hepatic lobe where there is posterior segmental atrophy and with hypertrophy of the lateral segment left hepatic lobe. Splenomegaly measuring 15.4 cm craniocaudally consistent with secondary venous hypertension. Multiple splenic calcifications consistent with old granulomatous disease. Pancreas and bilateral adrenal gla nds are normal. Small region of cortical scarring at the upper pole of the right kidney likely sequel a prior infection or infarction. Bilateral kidneys and ureters are otherwise unremarkable with no uro lithiasis or hydronephrosis. Partially decompressed bladder is normal. There is prominent diverticulo sis along the transverse, descending and sigmoid colon. Note is in comparison to suggest diverticulit is. Small bowel and appendix are normal. Anteverted uterus and bilateral adnexa are unremarkable. Min imal likely physiologic free fluid in the deep pelvis. Again seen are dilated bilateral gonadal veins and prominent parametrial vessels but appreciated on prior contrast enhanced study consistent with o ld vascular congestion syndrome. No pathologically enlarged abdominal or pelvic lymphadenopathy. Mode rate thoracic and lumbar spondylosis. IMPRESSION: 1. No urolithiasis, hydronephrosis or other acute intra-abdominal/pelvic process. 2. Extensive diverticulosis. 3. Cirrhosis and splenomegaly the latter likely secondary to associated portal venous hypertension. Reviewed, dictated and finalized at location A. IMPRESSION: 1. No urolithiasis, hydronephrosis or other acute intra-abdominal/pelvic proces s. 2. Extensive diverticulosis. 3. Cirrhosis and splenomegaly the latter likely secondary to associated portal venous hypertension.
[2023-07-28 16:14] LABS: Ferritin 80 ng/mL (8-252)
[2023-07-30 02:18] LABS: Hepatitis A Antibody IgM NON-REACTIVE (NON-REACTIVE); Hepatitis B Core Antibody NON-REACTIVE (NON-REACTIVE); Hepatitis B Surface Antigen NON-REACTIVE (NON-REACTIVE); Hepatitis C Virus Antibody NON-REACTIVE (NON-REACTIVE)
== END 2023-07-28 11:56 | disposition home or self-care (01) ==
PROVIDERS: PCP Family Medicine; Visit Provider Family Medicine
DX: N20.0 Calculus of kidney (principal); R35.0 Frequency of micturition; K74.60 Unspecified cirrhosis of liver; R74.01 Elevation of levels of liver transaminase levels; D50.9 Iron deficiency anemia, unspecified; K57.90 Diverticulosis of intestine, part unspecified, without perforation or abscess without bleeding; R16.1 Splenomegaly, not elsewhere classified; K76.6 Portal hypertension
CPT/HCPCS: 36415; 74176; 80074; 82728; 87086; 87088

== ENCOUNTER 2023-08-01 01:28 | Day surgery (SDC) | payer MEDICARE, SELFPAY ==
[2023-07-18 15:04] VITALS: BMI 33.3
[2023-07-18 15:24] VITALS: BMI 33.3
--- NOTE | 2023-08-01 11:16 | WPDANESEPPF ---
Anes - Initial Pre Proc Eval Procedure: Operation Date: 08/01/23 12:30 Proposed Procedures p Esophagogastroduodenoscopy - Rc Estrada MD Date/Time: 08/01/23 11:16 Surgeon: Rc Estrada MD Pre Op Diagnosis: GERD without esophagitis Patient Data Age: 77 Gender: F Height: 1.65 m Weight: 91 kg Allergies Allergy/AdvReac Type Severity Reaction Status Date / Time No Known Allergies Allergy Verified 08/01/23 11:14 Home Medications Medication Instructions Recorded Confirmed Type sacubitril 24 mg-valsartan 26 mg 1 tablet PO BID 05/17/22 07/28/23 History tablet (Entresto) acetaminophen 325 mg capsule 325 mg PO QID PRN Pain 04/27/23 07/28/23 History (Tylenol) carvedilol 25 mg tablet (Coreg) 25 mg PO BID 05/10/23 07/28/23 History oxycodone-acetaminophen 5 mg-325 1 tablet PO Q6H PRN pain #30 tabs 06/27/23 07/28/23 Rx mg tablet (Percocet) pantoprazole 40 mg tablet,delayed See Rx Instructions .Route 07/05/23 07/28/23 Rx release .COMPLEX #42 tabs bisacodyl 10 mg/30 mL enema (Fleet 5 mg RECTAL PRN PRN constipation 07/18/23 07/28/23 History Bisacodyl) ondansetron 4 mg disintegrating 4 mg PO Q8H PRN Nausea And Vomiting 07/18/23 07/28/23 History tablet sulfamethoxazole 800 1 tablet PO Q12H #10 tabs 07/28/23 08/01/23 Rx mg-trimethoprim 160 mg tablet (Bactrim DS) Patient hx anesthesia problems: none Family hx anesthesia problems: none Results Review: All pre-operative results and documents have been reviewed as part of the pre-operative evaluation. [facility] Past Medical History Medical History (Updated 07/28/23 @ 12:47 by Alessandro Sanchez DO) CHF (congestive heart failure) Chronic dysfunction of left eustachian tube Congestive heart failure Healed perforation of left ear drum Heart disease Hypertension Hypertension Nephrolithiasis Osteoarthritis of both knees Sensorineural hearing loss of combined sites, bilateral Surgical History Surgical History S/P cholecystectomy Social History Social History Smoking status: Never smoker Second hand tobacco smoke exposure: No Additional smoking assessment comments: PT DENIES ALL FORMS OF TOBACCO USE Alcohol intake: never Drinks per week: 1 Substance use: never Substance use type: does not use Do You Feel Safe in your Home?: Yes Lack of Transportation: No Lack of Food: Never True Current Housing: I Have Housing Concerned About Future Housing: No Difficulty Paying Gas/Electric Bills: No Difficulty Paying for Meds: No Currently Unemployed: No Education: High School Diploma/GED Difficulty w/ Childcare or Family Care: No Living arrangements: with family Additional living arrangements comments: with Spiritual care concerns: No Anes - Eval Final PreProcedure Day of Procedure 08/01/23 11:16 Patient weight: obese Heart: regular rate and rhythm Lungs: clear to auscultation Airway: Mallampati scale class II Neurological: alert and oriented Last oral intake: >/= 8 hours ASA classification: III Emergent: no Anesthetic plan: proceed Anesthesia type and monitoring: general GIVS and standard monitoring Results Review: All pre-operative results and documents have been reviewed as part of the pre-operative evaluation. Informed Consent: The patient's anesthetic plan and its attendant risks and benefits were discussed with the patient/family/POA. Questions were solicited and answers provided to the satisfaction of the patient/family/POA.
[2023-08-01 11:26] VITALS: BP 154/69; PULSE 69; RESP 18; TEMP 36.2; O2SAT 97
[2023-08-01] MEDS: LACTATED RINGERS 1,000 ML 150 ML IV CONT (11:27)
--- NOTE | 2023-08-01 12:27 | PM.HPGS ---
History of Present Illness History of Present Illness Consent: Risks, benefits, and alternatives have been discussed and questions answered. Patient agrees to proceed with procedure. Chief complaint: GERD without esophagitis Narrative: Marialuisa Schofield is a 77 year old female with early satiety, also recent CT scan showed cirrhosis- new diagnosis, denies history of liver disease or alcohol use. Review of Systems Review of Systems: All systems reviewed & are unremarkable except as noted in HPI and below PMFSH Past Medical History Medical History (Updated 07/28/23 @ 12:47 by Alessandro Sanchez DO) CHF (congestive heart failure) Chronic dysfunction of left eustachian tube Congestive heart failure Healed perforation of left ear drum Heart disease Hypertension Hypertension Nephrolithiasis Osteoarthritis of both knees Sensorineural hearing loss of combined sites, bilateral Surgical History Surgical History S/P cholecystectomy Social History Social History Smoking status: Never smoker Second hand tobacco smoke exposure: No Additional smoking assessment comments: PT DENIES ALL FORMS OF TOBACCO USE Alcohol intake: never Drinks per week: 1 Substance use: never Substance use type: does not use Do You Feel Safe in your Home?: Yes Lack of Transportation: No Lack of Food: Never True Current Housing: I Have Housing Concerned About Future Housing: No Difficulty Paying Gas/Electric Bills: No Difficulty Paying for Meds: No Currently Unemployed: No Education: High School Diploma/GED Difficulty w/ Childcare or Family Care: No Living arrangements: with family Additional living arrangements comments: with Spiritual care concerns: No Meds Home Medications and Allergies Home Medications Medication Instructions Recorded Confirmed Type sacubitril 24 mg-valsartan 26 mg 1 tablet PO BID 05/17/22 07/28/23 History tablet (Entresto) acetaminophen 325 mg capsule 325 mg PO QID PRN Pain 04/27/23 07/28/23 History (Tylenol) carvedilol 25 mg tablet (Coreg) 25 mg PO BID 05/10/23 07/28/23 History oxycodone-acetaminophen 5 mg-325 1 tablet PO Q6H PRN pain #30 tabs 06/27/23 07/28/23 Rx mg tablet (Percocet) pantoprazole 40 mg tablet,delayed See Rx Instructions .Route 07/05/23 07/28/23 Rx release .COMPLEX #42 tabs bisacodyl 10 mg/30 mL enema (Fleet 5 mg RECTAL PRN PRN constipation 07/18/23 07/28/23 History Bisacodyl) ondansetron 4 mg disintegrating 4 mg PO Q8H PRN Nausea And Vomiting 07/18/23 07/28/23 History tablet sulfamethoxazole 800 1 tablet PO Q12H #10 tabs 07/28/23 08/01/23 Rx mg-trimethoprim 160 mg tablet (Bactrim DS) Allergies Allergy/AdvReac Type Severity Reaction Status Date / Time No Known Allergies Allergy Verified 08/01/23 11:14 Vital Signs Vital Signs - 24 hr 08/01/23 11:26 Temperature 97.1 F L Pulse Rate 69 Respiratory Rate 18 Blood Pressure 154/69 H Pulse Oximetry 97 Oxygen Delivery Room Air Exam Const: General: comfortable and no acute distress HENMT: Face/Nose/Sinus: Normal nares present Eyes: General: appearance normal, both eyes and all related structures Neck: Neck: no JVD Resp: Auscultation: clear to auscultation bilaterally Cardio: Rate: regular rate Rhythm: regular rhythm GI: Inspection: non-distended GI Palp: Yes Soft to palpation Skin: General skin exam: normal color Neuro: General: gait normal Speech: normal speech Extrem: General: normal to inspection Psych: Mental Status: mental status grossly normal Assessment and Plan Assessment and plan (1) GERD (gastroesophageal reflux disease): Code(s): K21.9 - Gastro-esophageal reflux disease without esophagitis Status: Acute Assessment and Plan: egd (2) Cirrhosis: Code(s): K74.60 - Unspecified cirrhosis of live
[2023-08-01 12:45] VITALS: BP 140/62; PULSE 70; RESP 32; O2SAT 98
[2023-08-01 12:55] VITALS: BP 143/74; PULSE 67; RESP 14; O2SAT 98
[2023-08-01 13:05] VITALS: BP 152/95; PULSE 67; RESP 17; O2SAT 99
== END 2023-08-01 13:14 | disposition home or self-care (01) ==
PROVIDERS: PCP Family Medicine; Referring Provider Family Medicine; Visit Provider Internal Medicine Gastroenterology
PROC: 0DJ08ZZ Inspection of Upper Intestinal Tract, Via Natural or Artificial Opening Endoscopic (ICD-10-PCS; CPT 43235; principal; 2023-08-01 12:30)
DX: K22.2 Esophageal obstruction (principal); K44.9 Diaphragmatic hernia without obstruction or gangrene; K21.9 Gastro-esophageal reflux disease without esophagitis; K74.60 Unspecified cirrhosis of liver; I11.0 Hypertensive heart disease with heart failure; I50.9 Heart failure, unspecified; E66.9 Obesity, unspecified; Z68.33 Body mass index [BMI] 33.0-33.9, adult
CPT/HCPCS: 43249; C1726; J2001; J2704; J7120

== ENCOUNTER 2023-09-21 11:20 | Outpatient (NON) | payer MEDICARE, SELFPAY | END 2023-09-21 11:21 | disposition home or self-care (01) | LOC: CHSLAB 11:21 | PROVIDERS: Visit Provider Family Medicine | DX: R35.0 Frequency of micturition (principal) | CPT/HCPCS: 87086; 87088 ==

== ENCOUNTER 2023-10-05 09:04 | Outpatient (CLI) | payer MEDICARE, SELFPAY ==
[2023-10-05 09:26] LABS: Hematocrit 40.5 % (35.0-42.0); Hemoglobin 13.3 g/dL (11.7-13.8); Mean Corpuscular HGB Conc 32.8 g/dL (32-36); Mean Corpuscular Hemoglobin 30.6 pg (27.0-31.0); Mean Corpuscular Volume 93.3 fL (78.0-102.0); Mean Platelet Volume 10.3 fl (9.2-11.8); Platelet Count Result 220 K/mm3 (150-420); Red Blood Count 4.34 M/mm3 (4.20-5.40); Red Cell Distribution Width 13.2 % (11.6-14.4); White Blood Count 8.1 K/mm3 (4.8-10.8)
[2023-10-05 09:39] LABS: INR 1.1; Prothrombin Time 11.9 Seconds (9.50-12.1)
[2023-10-05 10:58] LABS: Alanine Aminotransferase 32 U/L (14-59); Albumin Level 3.1 g/dL (3.4-5.0); Alkaline Phosphatase 180 U/L (46-116); Anion Gap 9 mmol/L (4-12); Aspartate Amino Transferase 23 U/L (15-37); Bilirubin,Total 0.7 mg/dL (0.00-1.00); Blood Urea Nitrogen 16 mg/dL (7-18); Calcium 9.3 mg/dL (8.5-10.1); Carbon Dioxide 27 mmol/L (21-32); Chloride 103 mmol/L (98-108); Estimated Glomerular Filt Rate 60; Ferritin 155 ng/mL (8-252); Glucose 99 mg/dL (70-99); Iron 67 ug/dL (50-170); Osmolality Calculated 289 mOsm/kg (285-295); Percent Iron Saturation 24 % (12-57); Potassium 4.1 mmol/L (3.5-5.1); Sodium 139 mmol/L (136-145); Total Protein 7.2 g/dL (6.4-8.2)
[2023-10-06 15:19] LABS: Ceruloplasmin 35 mg/dL (14-48)
[2023-10-07 10:09] LABS: Hepatitis B Surface Antigen NON-REACTIVE (NON-REACTIVE)
[2023-10-07 11:48] LABS: Hepatitis A Antibody IgM NON-REACTIVE (NON-REACTIVE); Hepatitis B Core Antibody NON-REACTIVE (NON-REACTIVE); Hepatitis C Virus Antibody NON-REACTIVE (NON-REACTIVE)
[2023-10-11 12:54] LABS: Actin Antibody (IgG) 26 U (<20)
[2023-10-12 12:38] LABS: LKM 1 Antibody <=20.0 U (<=20.0)
[2023-10-14 00:52] LABS: ALT 15 U/L (6-29); Alpha-2-Macroglobulin 186 mg/dL (106-279); Apolipoprotein A1 139 mg/dL (101-198); Fibrosis Score 0.34; Fibrosis Stage F1-F2; GGT 88 U/L (3-65); Haptoglobin 184 mg/dL (43-212); Necroinflammat Act Grade A0; Reference ID 5079974; Total Bilirubin 0.4 mg/dL (0.2-1.2)
[2023-10-19 20:29] LABS: Mitochondrial (M2) Ab (IgG) <20.0 U
== END 2023-10-05 09:05 | disposition home or self-care (01) ==
LOC: CHSLAB 09:06
PROVIDERS: PCP Family Medicine; Visit Provider Nurse Practitioner Family
DX: K74.60 Unspecified cirrhosis of liver (principal); I10 Essential (primary) hypertension; R74.8 Abnormal levels of other serum enzymes
CPT/HCPCS: 36415; 80053; 80074; 81596; 82104; 82390; 82728; 83516; 83520; 83540; 83550; 85027; 85610; 86038; 86039; 86376

== ENCOUNTER 2023-11-11 09:03 | Outpatient (CLI) | payer MEDICARE, SELFPAY ==
[2023-11-01 16:06] VITALS: BMI 31.6
--- NOTE | 2023-11-01 16:07 | PC.NURSE ---
Pre Radiology instructions Report to the outpatient issa valle on date ___11/11/23__ at time ___9:00AM____ for procedure Time: __9:30AM__ YOU MAY BE MONITORED AT HOSPITAL FOR UP TO 4 HOURS AFTER YOUR PROCEDURE. COME TO FRONT ENTRANCE OF HOSPITAL-IMAGING CENTER A visitor will be allowed to accompany the patient into the hospital. You and your visitor will be asked to self-screen and do not enter if you have any COVID symptoms. A mask is OPTIONAL within the hospital. Patients are to have no food or drink 6 hours prior to procedure time Driving will be restricted after the procedure, you must have a person to drive you home. Labs will be drawn in preop area and once reviewed, you will be taken to radiology area for procedure. When the procedure is completed, you will be taken to outpatient where you will be monitored for several hours. You may have one visitor in this area. Other than holding anti-coagulants, patient may take other medication(s) as scheduled. Prior to your appointment date patients are instructed to hold anti-coagulants after discussing with ordering provider to stop. If unable to discontinue anti-coagulants please notify radiologist. ? No aspirin or warfarin (Coumadin) for 7 days prior to the procedure. ? No clopidogrel (Plavix), ticagrelor (Brilinta), prasugrel (Effient) or dabigatran (Pradaxa) for 5 days prior to the procedure. ? No rivaroxaban (Xarelto), apixaban (Eliquis), dipyridamole (Aggrenox or Persantine) or cilostazol (Pletal) for 2 days prior to the procedure. Medications to discontinue per physician: ____NONE____ Date to take last dose: Please leave all valuables, including medications, at home the day of procedure. The hospital will not accept responsibility for valuables. Wear comfortable, loose fitting clothing.? Follow any additional instructions given to you from ordering provider. Telephone instructions given to ___PATIENT and asked if any additional questions and then verbalized understanding. Patient advised to call scheduling provider office or registration scheduling [phone] if any additional questions.
[2023-11-11] VITALS (10 sets, daily range): BP systolic 152–160; BP diastolic 57–70; PULSE 56–63; RESP 16–18; O2SAT 99
--- NOTE | ~2023-11-11 | US_ITS ---
EXAMINATION: US biopsy liver DATE: 11/11/2023 10:21 INDICATION: Autoimmune hepatitis with cirrhosis TECHNIQUE: The procedure including the risks and benefits was discussed with the patient. Risks discu ssed included bleeding and infection. The patient understood the risks and agreed to proceed. The sk in overlying the liver was prepped and draped in usual sterile fashion. Anesthetic was administered with 1% lidocaine subcutaneously. An 18 gauge core biopsy needle was advanced under continuous ultra sound observation to the lesion of interest. 4 core biopsy specimens were obtained. The needle was removed and the entry site was cleaned and dressed. Post procedure ultrasound demonstrated no hemorr stephen. FINDINGS: Ultrasound images demonstrate biopsy needles advanced into the left hepatic lobe. IMPRESSION: 1. Successful Ultrasound-guided random liver biopsy. Reviewed, dictated and finalized at location A.
== END 2023-11-11 13:57 | disposition home or self-care (01) ==
LOC: ANHSURGERY 09:07 → ANHIMG 09:08
PROVIDERS: PCP Family Medicine; Referring Provider Radiology Diagnostic Radiology; Visit Provider Nurse Practitioner Family
PROC: BF45ZZZ Ultrasonography of Liver (ICD-10-PCS; CPT 47000; principal; 2023-11-11 09:30)
DX: K74.60 Unspecified cirrhosis of liver (principal); R89.9 Unspecified abnormal finding in specimens from other organs, systems and tissues; K73.8 Other chronic hepatitis, not elsewhere classified; K74.01 Hepatic fibrosis, early fibrosis
CPT/HCPCS: 47000; 76942; 88307; 88312; 88313

== ENCOUNTER 2023-12-21 09:10 | Outpatient (CLI) | payer MEDICARE, SELFPAY ==
--- NOTE | ~2023-12-21 | NM_ITS ---
EXAMINATION: NM vickey stress w perfusion DATE: 12/21/2023 11:20 INDICATION: Left bundle branch block. TECHNIQUE: Rest images were obtained following intravenous administration of 10 mCi Tc99m tetrofosmin (Myoview). The patient was infused intravenously with Lexiscan (regadenoson). Then, 31.8 mCi Tc99m t etrofosmin (Myoview) was administered intravenously, and stress images were obtained. Data was recons tructed into short axis and horizontal and vertical long axis SPECT images. Gated SPECT images were a lso obtained. COMPARISON: None. FINDINGS: There is no definite reversible or fixed perfusion abnormality to suggest ischemia or infar ction. There is no segmental wall motion abnormality. Left ventricular ejection fraction measures 4 9%. IMPRESSION: 1. No definite ischemia or infarct. 2. Left ventricular ejection fraction measuring 49%. Reviewed, dictated and finalized at location A. MAKER
--- NOTE | 2023-12-21 09:15 | EST_ITS ---
Patient Info Name: Marialuisa Schofield Age: 78 years : 11/13/1945 Gender: Female Ht: 66 in Wt: 195 lbs BSA: 2.06 m2 HR: 67 bpm BP: 156 / 82 mmHg Exam Date: 12/21/2023 10:06 AM Exam Location: Echo Lab Patient Status: Outpatient Admit Date: 12/21/2023 Staff Ordering Physician: Lokesh Casiano DO Attending Provider: Lokesh Casiano DO Exercise Technologist: Oriana Ewing RDCS Exercise Physician: Lokesh Casiano DO Exam Type: CA stress vickey w NM Study Info A regadenoson stress test was performed. Summary 1. 1. Inconclusive lexiscan stress test for ischemic ST changes by ECG criteria. 2. 2. Baseline hypertension. 3. 3. Nuclear scan to follow and will be reported separately. Please correlate with it. 4. 4. Patient informed of the above results. Protocol: Lexiscan Stress ECG Details Stage: REST Duration (min): 3 min : 33 sec HR (bpm): 70 SBP (mmHg): 156 DBP (mmHg): 82 Stage: REST Duration (min): 6 min : 36 sec HR (bpm): 74 SBP (mmHg): 156 DBP (mmHg): 82 Stage: STAGE 1 Duration (min): 0 min : 59 sec HR (bpm): 85 SBP (mmHg): 156 DBP (mmHg): 82 Stage: RECOVERY Duration (min): 1 min : 0 sec HR (bpm): 88 SBP (mmHg): 170 DBP (mmHg): 84 Stage: RECOVERY Duration (min): 2 min : 0 sec HR (bpm): 84 SBP (mmHg): 170 DBP (mmHg): 84 Stage: RECOVERY Duration (min): 3 min : 0 sec HR (bpm): 80 SBP (mmHg): 166 DBP (mmHg): 82 Stage: RECOVERY Duration (min): 3 min : 13 sec HR (bpm): 77 SBP (mmHg): 166 DBP (mmHg): 82 Rest HR: 74 bpm Peak HR: 90 bpm Rest Sys BP: 156 mmHg Peak Sys BP: 170 mmHg Max Pred HR: 140 bpm % Max Pred HR: 64 % Target HR: 119 bpm Max RPP: 15,300 bpm*mmHg Termination Reason: Completed protocol Cardiac Symptoms: None Total Time: 1 min : 0 sec Rest Patterson BP: 82 mmHg Peak Patterson BP: 84 mmHg Total Dose: 0.4 mg Resting ECG Sinus rhythm, LBBB. Stress ECG No ST changes. Arrhythmias None. Report Signatures
== END 2023-12-21 09:11 | disposition home or self-care (01) ==
PROVIDERS: PCP Family Medicine; Visit Provider Internal Medicine Cardiovascular Disease
DX: I44.7 Left bundle-branch block, unspecified (principal); I10 Essential (primary) hypertension
CPT/HCPCS: 78452; 93017; A9502; J2785

== ENCOUNTER 2024-03-01 12:20 | Outpatient (CLI) | payer MEDICARE, SELFPAY ==
--- NOTE | ~2024-03-01 | US_ITS ---
US transvaginal Ordering provider: Alessandro Sanchez DO History: . N89.8 - Other specified noninflammatory disorders of vagina . Comparison: None. Technique: endovaginal ultrasound of the pelvis (Doppler ultrasound interrogation techniques used as needed for this exam.) FINDINGS: CERVIX: Nabothian cysts. UTERUS: Measures 7.6x 3.4x 2.5 cm in length which is within normal limits and is anteverted. No myom etrial masses. Calcifications are seen. ENDOMETRIUM: Normal in thickness measuring 8.2 mm. No endometrial masses, cysts or fluid. CUL DE SAC: No free fluid. RIGHT OVARY: Not seen. LEFT OVARY: Not seen. ADNEXA: Normal. No mass. IMPRESSION: Nabothian cysts. Ovaries are not demonstrated. Otherwise, normal pelvic ultrasound. Reviewed, dictated and finalized at location A. LIANCE MONITOR IMPRESSION: Nabothian cysts. Ovaries are not demonstrated. Otherwise, normal pelvic ultraso und.
== END 2024-03-01 12:21 | disposition home or self-care (01) ==
LOC: CHSIMG 12:21
PROVIDERS: PCP Family Medicine; Visit Provider Family Medicine
DX: N89.8 Other specified noninflammatory disorders of vagina (principal)
CPT/HCPCS: 76830

== ENCOUNTER 2024-03-12 08:01 | Outpatient (CLI) | payer MEDICARE, SELFPAY ==
--- NOTE | ~2024-03-12 | US_ITS ---
EXAMINATION: US abdomen limited DATE: 03/12/2024 08:35 INDICATION: Cirrhosis TECHNIQUE: Multiple grayscale and Doppler ultrasound images of the abdomen were obtained. COMPARISON: None FINDINGS: Visualized portion of the pancreas are normal. Portions of the head and tail are obscured. Visualized portions of the proximal abdominal aorta and inferior vena cava are normal. Liver has normal echogen icity and contour, with a smooth surface. No liver lesion identified. No intrahepatic biliary duct di lation suspected. Portal venous flow was seen in the hepatopetal, normal direction and has normal Dop pler waveform. Gallbladder is nonvisualized and reportedly surgically absent. The common bile duct me asures 6 mm, which is within normal limits post cholecystectomy. IMPRESSION: 1. Status post cholecystectomy. Otherwise normal right upper quadrant ultrasound. Reviewed, dictated and finalized at location B. ING AID REPAIRER IMPRESSION: 1. Status post cholecystectomy. Otherwise normal right upper quadrant ultrasoun d.
--- OUTSIDE RECORDS SUMMARY | 2024-03-12 08:11 | XMS_ITS | Clinical Summary ---
Author Organization [facility] [employer] Address [address] [place] [address] Care Team Providers Care Fraud Prevention Analyst Name Role Phone Trav Mullins MD Unavailable [phone] Lenny Zepeda MD Unavailable [phone] Source Comments [facility],non-owned Affiliates and Associated Physician Practices is amultiple site organization consisting of ambulatory clinics and hospital sitesin [place], [place], [place] and [place]. This disclosure is being madepursuant to the Care Everywhere program and may not contain all information available regarding this patient. Last updated 17.[facility] Allergies No known active allergies Medications * Be aware that medications may not be up to date on this document. Alwaysverify current medications with the patient. Medication Sig Dispensed Refills Start Date End Date Status aspirin 81 MG tablet Take 1 (one) tablet by mouth at bedtime Active carvedilol (Coreg) 25 MG tablet TAKE one Tablet BY MOUTH TWICE DAILY with morning and evening meals 180 tablet 03/29/2022 Active Entresto 24-26 MG tablet TAKE ONE TABLET BY MOUTH TWICE A DAY 180 tablet 1 05/11/2022 Active Active Problems Problem Noted Date Diagnosed Date Psoriasis 10/12/2016 HFrEF (heart failure with reduced ejection fract ion) 11/25/2015 Overview (11/14/2016): Dr. Marianna Zepeda 05.17.16 IMO Update 11/14/2016 Elevated diaphragm 10/07/2014 Muscular deconditioning 10/07/2014 History of basal cell cancer - right cheek, 09/02 15 09/18/2014 Atherosclerosis of aorta 09/17/2014 Overview (10/04/2016): Not mentioned on most recent x-ray/exam. XR 10.4.12 CKD Stage III 08/12/2010 LBBB (left bundle branch block) 03/19/2009 Overview (06/25/2009): 12/23 - normal heart cath GERD (gastroesophageal reflux disease) Overview (03/23/2011): EGD 2005 with Schatzki's ring and gastritis. Diverticulosis Benign hypertension with CKD (chronic kidney disease) stage III Osteopenia Osteoarthritis Obesity Resolved Problems Problem Noted Date Diagnosed Date Resolved Date Chest pain 09/29/2017 10/10/2017 Tortuous aorta 09/17/2014 11/25/2015 Overview (05/28/2015): CXR 10/08/14 CHF (congestive heart failure) 10/01/2013 05/28/2015 Overview (10/01/2013): Followed by Dr. Zepeda SOB (shortness of breath) 05/21/2010 HTN (hypertension), benign 0 10/01/2013 Cardiac dysrhythmia 03/13/19 21 Overview (11/14/2014): LBBB Immunizations Name Administration Dates Next Due INFLUENZA VACCINE, TRIV. (AF LURIA, FLUZONE TRIVALENT; 6MO+) (IIV3) 12/06/2012,11/18/2011 COVID PFIZER BIVALENT 12Y+ 30mcg/0.3ML 11/18/2021 Covid Pfizer primary monoval ent 12+ yr 0.3mL Purple cap 05/28/2021,12/03/2020,04/18/2020,2020 INFLUENZA VACCINE 11/06/2020, 0,11/25/2017,2014,11/24/2013,12/09/2010 INFLUENZA VACCINE, ADJUVANTE D, QUADR. (FLUAD QUADRIVALENT; 65Y+) (AIIV4) 11/18/2021 INFLUENZA VACCINE, CELL CULT URE, QUADR. (FLUCELVAX QUADRIVALENT; 6MO+), 0.5 ML (CCIIV4) 12/11/2018 INFLUENZA VACCINE, QUADR. (A FLURIA, FLUZONE QUADRIVALENT; 6MO+) (IIV4) 12/07/2016,11/26/2015 PNEUMOCOCCAL PPSV23 07/01/2009 Pneumococcal Pcv13 Conj 09/18/2014 TDAP (7yrs+) 07/18/2007 ZOSTER VACCINE, LIVE 12/01/2011 Zoster Hzv Vacc Recombinant Inj Im 01/31/2020, Family History Medical History Relation Name Comments Stroke Brother 3 Stroke Brother 4 Heart Failure Father [place] Mother Cancer - Breast Other pat cousin Cancer - Colon Neg Hx Colon polyps Neg Hx Relation Name Status Comments Brother 1 Alive stroke Brother 2 Alive stroke Brother 3 Brother 4 Father (Age 70) Mother (Age 58) Other Sister 1 Alive healthy Sister 2 Alive healthy Sister 3 Alive healthy Social History Tobacco Use Types Packs/Day Years Used Date Smoking Tobacco: Never Smokeless Tobacco: Never Tobacco Cessation:Counseling Given: Not Answered Alcohol Use Standard Drinks/Week Comments No 0 (1 standard drink = 0.6 oz pur e alcohol) PHQ-2 Answer Date Recorded PHQ2 TOTAL SCORE 0 11/18/2021 Sex and Gender Information Value Date Recorded Sex Assigned at Not on file Gender Identity Not on file Sexual Orientation Not on file Last Filed Vital Signs Vital Sign Reading Time Taken Comments Blood Pressure 142/86 04/16/2022 12:[address] DEPUTY CLERK Pulse 69 04/16/2022 12:[address] DEPUTY CLERK Temperature 36.8 ??C (98.3 ??F) 11/10/2020 1:05 PM CD T Respiratory Rate 20 11/18/2021 12:4 9 PM CDT Oxygen Saturation 97% 04/16/2022 12: [address] DEPUTY CLERK Inhaled Oxygen Concentration - - Weight 93.4 kg (205 lb 12.8 oz) 023 12:[address] DEPUTY CLERK Height 167.6 cm (5' 6 ) 04/16/2022 12:[address] DEPUTY CLERK Body Mass Index 33.22 04/16/2022 12:[address] DEPUTY CLERK Plan of Treatment Health Maintenance Due Date Last Done Comments HEPATITIS B VACCINE (1 of 3 - Risk 3-dose series) 11/13/2003 DTAP/TDAP/TD VACCINES (2 - Td or Tdap) 07/17/2017 07/18/2007 Respiratory Syncytial Virus (RSV) Vaccine Pt: or over 60 yrs (1 - 1-dose 75+ series) 11/12/2018 COVID-19 VACCINE ( season) 2023 11/18/2021, 05/28/2021, 05/28/2021, Additional history exists INFLUENZA VACCINE (#1) 2023 , 11/06/2020, 10/23/2019, Additional history exists DEPRESSION SCREENING 02/15/2024 05/28/2021 MEDICARE AWV ? CALENDAR YEAR 2024 05/28/2021, 03/13/2020 BONE DENSITY TESTING Completed 07/17/2012, 01/24/20 08 PNEUMOCOCCAL VACCINE 50+ Completed 09/18/2014, 06/14 ZOSTER VACCINE Completed 01/31/2020, 10/15, 12/01/2011 HIB VACCINE Aged Out No longer eligi ble based on patient's age to complete this topic HPV VACCINE Aged Out No longer eligi ble based on patient's age to complete this topic MENINGOCOCCAL (Group B) VACCINE Aged Out No longer eligible based on patient's age to complete this topic MENINGOCOCCAL VACCINE Aged Out No chely claudette eligible based on patient's age to complete this topic Goals Goal Patient Goal Type Associated Problems Recent Progress Patient-Stated? Author Blood Pressure < 140/90 Blood Pressure 142/86(2022 12:[address] DEPUTY CLERK) No Cecilia Christianson Diet - low sodium 2 gm daily Diet No Annabelle Sanders, RENU Right level of care at the right time General Yes Vane Cee, RN Note: Marialuisa will call the doctor if: he/she has an increased temperature (greater than 101), unrelieved pain, symptoms that are not relieved or worsening, and side effects of medications. Progress toward goal attainment: 0% : Ongoing / No progress Barriers to goal attainment: None identified at this time Procedures Procedure Name Priority Date/Time Associated Diagnosis Comments DEXA BONE DENSITY 2 SITES Routine 07/17/2012 1:54 PM CDT Osteopenia from Last 3 Months or Most Recently Relevant to Health Maintenance Results * DEXA BONE DENSITY 2 SITES (07/17/2012 1:54 PM CDT) Anatomical Region Laterality Modality Mammography 07/17/2012 3:55 PM CDT Impressions 07/17/2012 3:55 PM CDT Normal bone mineral density Of the lumbar spine. This has shown a 12% improvement since the prior study. Left femoral neck: The bone mineral density of the left femoral neck is 0.7 ?, which corresponds to a young adult T-SCORE of ??-1.2 ??, and an age-matched Z-SCORE of ??0.6 ??. IMPRESSION: Osteopenia of the left femoral neck, not statistically changed from the prior study (prior T score -1.1). Narrative 07/17/2012 3:55 PM CDT Exam: Hip and spine bone mineral density. History: Postmenopausal status FINDINGS: Comparison from 01-24-08 Lumbar spine: The bone mineral density of the lumbar spine is 1.0 ??, which corresponds to a young adult T-SCORE of 0.3 ?? , and an age-matched Z-SCORE of ?? 2.4 ?. Procedure Note Ching Payton MD - 07/17/2012 Exam: Hip and spine bone mineral density. History: Postmenopausal status FINDINGS: Comparison from 01-24-08 Lumbar spine: The bone mineral density of the lumbar spine is 1.0 , which corresponds to a young adult T-SCORE of 0.3 , and an age-matched Z-SCORE of 2.4 . IMPRESSION Normal bone mineral density Of the lumbar spine. This has shown a 12% improvement since the prior study. Left femoral neck: The bone mineral density of the left femoral neck is 0.7 , which corresponds to a young adult T-SCORE of -1.2 , and an age-matched Z-SCORE of 0.6 . IMPRESSION: Osteopenia of the left femoral neck, not statistically changed from the prior study (prior T score -1.1). Kamla Lemus TEACHING ASSOCIATE-EAR MUFF ASSEMBLER DEXA ORDERABLE S from Last 3 Months or Most Recently Relevant to Health Maintenance Advance Directives * Full Code (Latest Code Status on File) Date Activated Date Inactivated Comments 09/29/2017 3:24 PM 09/30/2017 5:47 PM Care Teams Fraud Prevention Analyst Relationship Specialty [place] [address] [place] [phone] Pulmonary Disease 10/07/14 Lenny Zepeda MD [address] [facility] [address] [place] [phone] (Work) Cardiovascular Disease 10/07/14
--- OUTSIDE RECORDS SUMMARY | 2024-03-12 08:12 | XMS_ITS | Referral Summary ---
Author Organization [facility] Address [address] [place] [address] Care Team Providers Care Materials Mgmt Tech Name Role Phone Trav Mullins MD Unavailable [phone] Lenny Zepeda MD Unavailable [phone] Source Comments [facility],non-owned Affiliates and Associated Physician Practices is amultiple site organization consisting of ambulatory clinics and hospital sitesin [place], [place], [place] and [place]. This disclosure is being madepursuant to the Care Everywhere program and may not contain all information available regarding this patient. Last updated 17.[facility] Allergies No known active allergies Medications * [...] Zoster Hzv Vacc Recombinant Inj Im 01/31/2020, Social History Tobacco Use Types Packs/Day Years [...] Comments Blood Pressure 142/86 04/16/2022 12:43 PM [facility] Pulse 69 04/16/2022 12:43 PM [facility] Temperature 36.8 ??C (98.3 ??F) 11/10/2020 1:05 PM CD T Respiratory Rate 20 11/18/2021 12:4 9 PM CDT Oxygen Saturation 97% 04/16/2022 12: 43 PM [facility] Inhaled Oxygen Concentration - - Weight 93.4 kg (205 lb 12.8 oz) 023 12:43 PM [facility] Height 167.6 cm (5' 6 ) 04/16/2022 12:4 3 PM [facility] Body Mass Index 33.22 04/16/2022 12:43 PM [facility] Functional Status Functional Status Response Date of Assess ment Is person deaf or have serious hearing difficult y? No 09/29/2017 Is person blind or have serious difficulty seein g? No 09/29/2017 Does person have serious dif ficulty walking/climbing stairs? No 09/29/2017 Does person have difficulty dressing/bathing? No 09/29/2017 Does person have difficulty doing errands alone? No 09/29/2017 Cognitive Status Response Date of Assessm ent Does person have difficulty concentrating/remembering/making decisions? No 09/29/2017 Plan of Treatment Not on file Goals Goal Patient Goal Type Associated Problems Recent Progress Patient-Stated? Author Blood Pressure < 140/90 Blood Pressure 142/86(2022 12:43 PM [facility]) No Cecilia Christianson Diet - low sodium 2 gm daily Diet No Annabelle Sanders, RENU Right level of care at the right time General Yes Vane Cee, [place] Note: Jacoby will call the doctor if: he/she has [...] study (prior T score -1.1). Kamla Lemus PHARMACEUTICAL SALES REPRESENTATIVE-METER/[employer] DEXA ORDERABLE S from Last 3 Months or Most Recently Relevant to Health Maintenance Administered Medications Advance Directives * Full Code (Latest Code Status on File) Date Activated Date Inactivated Comments 09/29/2017 3:24 PM 09/30/2017 5:47 PM Care Teams Materials Mgmt Tech Relationship Specialty Start Date End Date Trav Mullins MD [address] [place] [id number] Pulmonary Disease 10/07/14 Lenny Zepeda MD [address] [place] [phone] (Work) Cardiovascular Disease 10/07/14
--- OUTSIDE RECORDS SUMMARY | 2024-03-12 08:12 | XMS_ITS | Patient Health Summary ---
Author Organization [facility] [employer] Address [address] [place] [address] Care Team Providers Care Service Shop Foreman Name Role Phone Trav Bailey MD Unavailable [phone] Lenny Zepeda MD Unavailable [phone] Note from [facility],non-owned Affiliates and Associated Physician Practices is amultiple site organization consisting of ambulatory clinics and hospital sitesin [place], [place], [place] and [place]. This disclosure is being madepursuant to the Care Everywhere program and may not contain all information available regarding this patient. Last updated 17.[facility] Allergies No known active allergies Medications * Be aware that medications may not be up to date on this document. Alwaysverify current medications with the patient. * aspirin 81 MG tablet Take 1 (one) tablet by mouth at bedtime * carvedilol (Coreg) 25 MG tablet(Started 03/29/2022) TAKE one Tablet BY MOUTH TWICE DAILY with morning and evening meals * Entresto 24-26 MG tablet(Started 05/11/2022) TAKE ONE TABLET BY MOUTH TWICE A DAY 1 refill by 05/11/2023 Active Problems Problem Noted Date Diagnosed Date Psoriasis 10/12/2016 HFrEF (heart failure with reduced ejection fract ion) 11/25/2015 Elevated diaphragm 10/07/2014 Muscular deconditioning 10/07/2014 History of basal cell cancer - right cheek, 09/02 15 09/18/2014 Atherosclerosis of aorta 09/17/2014 CKD Stage III 08/12/2010 LBBB (left bundle branch block) 03/19/2009 GERD (gastroesophageal reflux disease) Diverticulosis Benign hypertension with CKD (chronic kidney disease) stage III Osteopenia Osteoarthritis Obesity Resolved Problems Problem Noted Date Diagnosed Date Resolved Date Chest pain 09/29/2017 10/10/2017 Tortuous aorta 09/17/2014 11/25/2015 CHF (congestive heart failure) 10/01/2013 05/28/2015 SOB (shortness of breath) 05/21/2010 HTN (hypertension), benign 0 10/01/2013 Cardiac dysrhythmia 03/13/19 21 Immunizations * INFLUENZA VACCINE, TRIV. (AFLURIA, FLUZONE TRIVALENT; 6MO+) (IIV3)(Given 12/06/2012, 11/18/2011) * COVID PFIZER BIVALENT 12Y+ 30mcg/0.3ML(Given 11/18/2021) * Covid Pfizer primary monovalent 12+ yr 0.3mL Purple cap(Given 05/28/2021, 12/03/2020, 04/18/2020, 03/25/2020) * INFLUENZA VACCINE(Given 11/06/2020, 10/23/2019, 11/25/2017, 12/17/2014, 11/24/2013, 12/09/2010) * INFLUENZA VACCINE, ADJUVANTED, QUADR. (FLUAD QUADRIVALENT; 65Y+) (AIIV4)(Given 11/18/2021) * INFLUENZA VACCINE, CELL CULTURE, QUADR. (FLUCELVAX QUADRIVALENT; 6MO+), 0.5 ML (CCIIV4)(Given 12/11/2018) * INFLUENZA VACCINE, QUADR. 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 Pulse 69 04/16/2022 12:43 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 Temperature 36.8 ??C (98.3 ??F) 11/10/2020 1:05 PM CD T Respiratory Rate 20 11/18/2021 12:4 9 PM CDT Oxygen Saturation 97% 04/16/2022 12: 43 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 Inhaled Oxygen Concentration - - Weight 93.4 kg (205 lb 12.8 oz) 023 12:43 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 Height 167.6 cm (5' 6 ) 04/16/2022 12:4 3 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 Body Mass Index 33.22 04/16/2022 12:43 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 Procedures * VITAMIN B12(Performed 09/21/2021) Performed for Macrocytosis * TSH(Performed 09/21/2021) Performed for Constipation, unspecified constipation type * FOLATE(Performed 09/21/2021) Performed for Macrocytosis * PATHOLOGY/CYTOLOGY REPORT ORDER(Performed 09/18/2021) * ENDOSCOPY, COLON, SCREENING(Performed 09/17/2021) Performed for High risk for colon cancer, History of colon polyps, History of adenomatous polyp of colon * REF LAB-PLEASE NOTE(Performed 05/28/2021) * BASIC METABOLIC PANEL (CALCIUM TOTAL)(Performed 05/28/2021) Performed for Benign hypertension with CKD (chronic kidney disease) stage III (HCC) * VITAMIN D 25-HYDROXY(Performed 05/28/2021) Performed for Osteopenia of multiple sites * LIPID PROFILE REFLEX LDL DIRECT(Performed 05/28/2021) Performed for Benign hypertension with CKD (chronic kidney disease) stage III (HCC) * CBC W AUTO DIFFERENTIAL(Performed 05/28/2021) Performed for Stage 3a chronic kidney disease (HCC) * XR KNEE BILAT 4VW OR MORE(Performed 03/03/2021) Performed for Acute pain of both knees * CT RENAL STONE(Performed 11/10/2020) Performed for Flank pain * COMPREHENSIVE METABOLIC PANEL(Performed 11/10/2020) * CBC W AUTO DIFFERENTIAL(Performed 11/10/2020) * URINE MICROSCOPIC ONLY REFLEX TO CULTURE(Performed 11/10/2020) * URINALYSIS REFLEX MICROSCOPIC REFLEX CULTURE(Performed 11/10/2020) * CULTURE URINE(Performed 11/10/2020) * URINALYSIS MICROSCOPIC ONLY REFLEXED(Performed 10/29/2020) Performed for Right flank discomfort, Stage 3a chronic kidney disease (HCC) * HEPATIC FUNCTION PANEL(Performed 10/29/2020) Performed for Right flank discomfort, Chronic systolic heart failure (HCC) * LIPID PROFILE REFLEX LDL DIRECT(Performed 10/29/2020) Performed for Benign hypertension with CKD (chronic kidney disease) stage III (HCC) * CBC W AUTO DIFFERENTIAL(Performed 10/29/2020) Performed for Right flank discomfort, Chronic systolic heart failure (HCC), Stage 3a chronic kidneydisease (HCC) * URINALYSIS REFLEX MICROSCOPIC REFLEX CULTURE(Performed 10/29/2020) Performed for Right flank discomfort, Stage 3a chronic kidney disease (HCC) * CULTURE URINE(Performed 10/29/2020) Performed for Right flank discomfort, Stage 3a chronic kidney disease (HCC) * COMPREHENSIVE METABOLIC PANEL(Performed 03/13/2020) Performed for Neck fullness * CBC W AUTO DIFFERENTIAL(Performed 03/13/2020) Performed for Neck fullness * BASIC METABOLIC PANEL (CALCIUM TOTAL)(Performed 01/09/2020) Performed for Essential hypertension, Mixed hyperlipidemia * ECHOCARDIOGRAM 2D WITH DOPPLER(Performed 11/23/2019) Performed for Chronic systolic heart failure (HCC), BAJWA (dyspnea on exertion), Essential hypertension, Hypersomnia, Mixed hyperlipidemia * BASIC METABOLIC PANEL (CALCIUM TOTAL)(Performed 07/26/2019) Performed for Chronic systolic heart failure (HCC), BAJWA (dyspnea on exertion), Essential hypertension * EKG 12-LEAD(Performed 03/15/2019) Performed for Atrial fibrillation, unspecified type (HCC) * MRI IAC AND BRAIN WWO CONT(Performed 02/23/2019) Performed for SNHL (sensory-neural hearing loss), asymmetrical * BASIC METABOLIC PANEL (CALCIUM TOTAL)(Performed 02/20/2019) Performed for Chronic systolic heart failure (HCC), BAJWA (dyspnea on exertion), Essential hypertension, Mixed hyperlipidemia, LEO (obstructive sleep apnea), Exercise intolerance * LIPID PROFILE REFLEX LDL DIRECT(Performed 06/28/2018) Performed for Atherosclerosis of aorta (HCC) * COMPREHENSIVE METABOLIC PANEL(Performed 06/28/2018) Performed for CKD Stage III, Atherosclerosis of aorta (HCC) * CBC W AUTO DIFFERENTIAL(Performed 06/28/2018) Performed for CKD Stage III * BASIC METABOLIC PANEL (CALCIUM TOTAL)(Performed 04/26/2018) Performed for Chronic systolic heart failure (HCC), BAJWA (dyspnea on exertion) * LIPID PROFILE REFLEX LDL DIRECT(Performed 10/13/2017) Performed for Benign hypertension with CKD (chronic kidney disease) stage III (HCC) * CARDIAC RHYTHM STRIP ORDER(Performed 10/04/2017) * NM CARDIAC MUGA SCAN(Performed 10/04/2017) Performed for Cardiomyopathy, unspecified type (HCC), Chronic systolic CHF (congestive heart failure) (HCC) * CARDIAC EKG ORDER(Performed 10/04/2017) * NM MYOCARD PERF REST STRESS(Performed 09/30/2017) Performed for Chest pain, unspecified type * STRESS TEST LEXISCAN (NUCLEAR)(Performed 09/30/2017) Performed for Chest pain, unspecified type * NT-PRO BNP(Performed 09/30/2017) Performed for Chest pain, unspecified type, Gastroesophageal reflux disease without esophagitis, Diverticulosis of intestine without bleeding, unspecified intestinal tract location, Benign hypertension with CKD (chronic kidney disease) stage III (HCC), LBBB (left bundle branch block), Chronic systolic heart failure (HCC), Osteopenia, unspecified location, CKD Stage III, Osteoarthritis of right hand, unspecified osteoarthritis type, Atherosclerosis of aorta (HCC), History of basal cell cancer - right cheek, 08/2014, Elevated diaphragm, Chronic systolic CHF (congestive heart failure) (HCC), Muscular deconditioning, Psoriasis * TSH REFLEX FREE T4(Performed 09/30/2017) Performed for Chest pain, unspecified type, Gastroesophageal reflux disease without esophagitis, Diverticulosis of intestine without bleeding, unspecified intestinal tract location, Benign hypertension with CKD (chronic kidney disease) stage III (HCC), LBBB (left bundle branch block), Chronic systolic heart failure (HCC), Osteopenia, unspecified location, CKD Stage III, Osteoarthritis of right hand, unspecified osteoarthritis type, Atherosclerosis of aorta (HCC), History of basal cell cancer - right cheek, 08/2014, Elevated diaphragm, Chronic systolic CHF (congestive heart failure) (HCC), Muscular deconditioning, Psoriasis * PHOSPHORUS BLOOD(Performed 09/30/2017) Performed for Chest pain, unspecified type, Gastroesophageal reflux disease without esophagitis, Diverticulosis of intestine without bleeding, unspecified intestinal tract location, Benign hypertension with CKD (chronic kidney disease) stage III (HCC), LBBB (left bundle branch block), Chronic systolic heart failure (HCC), Osteopenia, unspecified location, CKD Stage III, Osteoarthritis of right hand, unspecified osteoarthritis type, Atherosclerosis of aorta (HCC), History of basal cell cancer - right cheek, 08/2014, Elevated diaphragm, Chronic systolic CHF (congestive heart failure) (HCC), Muscular deconditioning, Psoriasis * MAGNESIUM BLOOD(Performed 09/30/2017) Performed for Chest pain, unspecified type, Gastroesophageal reflux disease without esophagitis, Diverticulosis of intestine without bleeding, unspecified intestinal tract location, Benign hypertension with CKD (chronic kidney disease) stage III (HCC), LBBB (left bundle branch block), Chronic systolic heart failure (HCC), Osteopenia, unspecified location, CKD Stage III, Osteoarthritis of right hand, unspecified osteoarthritis type, Atherosclerosis of aorta (HCC), History of basal cell cancer - right cheek, 08/2014, Elevated diaphragm, Chronic systolic CHF (congestive heart failure) (HCC), Muscular deconditioning, Psoriasis * COMPREHENSIVE METABOLIC PANEL(Performed 09/30/2017) Performed for Chest pain, unspecified type, Gastroesophageal reflux disease without esophagitis, Diverticulosis of intestine without bleeding, unspecified intestinal tract location, Benign hypertension with CKD (chronic kidney disease) stage III (HCC), LBBB (left bundle branch block), Chronic systolic heart failure (HCC), Osteopenia, unspecified location, CKD Stage III, Osteoarthritis of right hand, unspecified osteoarthritis type, Atherosclerosis of aorta (HCC), History of basal cell cancer - right cheek, 08/2014, Elevated diaphragm, Chronic systolic CHF (congestive heart failure) (HCC), Muscular deconditioning, Psoriasis * CBC W AUTO DIFFERENTIAL(Performed 09/30/2017) Performed for Chest pain, unspecified type, Gastroesophageal reflux disease without esophagitis, Diverticulosis of intestine without bleeding, unspecified intestinal tract location, Benign hypertension with CKD (chronic kidney disease) stage III (HCC), LBBB (left bundle branch block), Chronic systolic heart failure (HCC), Osteopenia, unspecified location, CKD Stage III, Osteoarthritis of right hand, unspecified osteoarthritis type, Atherosclerosis of aorta (HCC), History of basal cell cancer - right cheek, 08/2014, Elevated diaphragm, Chronic systolic CHF (congestive heart failure) (HCC), Muscular deconditioning, Psoriasis * TROPONIN I(Performed 09/29/2017) * TROPONIN I(Performed 09/29/2017) * XR CHEST 1VW PORTABLE(Performed 09/29/2017) Performed for Chest pain, unspecified type * TROPONIN I(Performed 09/29/2017) * BASIC METABOLIC PANEL (CALCIUM TOTAL)(Performed 09/29/2017) * CBC W AUTO DIFFERENTIAL(Performed 09/29/2017) * EKG 12-LEAD(Performed 09/29/2017) Performed for Gastroesophageal reflux disease without esophagitis * PATHOLOGY/CYTOLOGY REPORT ORDER(Performed 05/17/2017) * VAS RIGHT VENOUS DUPLEX LE(Performed 04/01/2017) Performed for Right leg pain * D-DIMER(Performed 04/01/2017) * XR KNEE RIGHT 3VW(Performed 04/01/2017) Performed for Acute pain of right knee * XR FEMUR RIGHT 2VW(Performed 04/01/2017) Performed for Acute pain of right knee * BASIC METABOLIC PANEL (CALCIUM TOTAL)(Performed 11/18/2016) Performed for Chronic systolic heart failure (HCC) * XR SHOULDER LEFT 2VW OR MORE(Performed 11/13/2016) Performed for Acute pain of left shoulder * ECHOCARDIOGRAM 2D WITH DOPPLER(Performed 10/20/2016) Performed for Chronic systolic heart failure (HCC), BAJWA (dyspnea on exertion) * CULTURE ANAEROBE+AEROBE(Performed 09/14/2016) Performed for Abscess of pubic region * MAMMO BILAT SCREENING(Performed 07/09/2016) Performed for Visit for screening mammogram * CT ABDOMEN WWO CONTRAST(Performed 05/21/2016) Performed for Renal mass, right * US RETROPERITONEAL COMPLETE(Performed 05/14/2016) Performed for Flank pain * URINALYSIS MICROSCOPIC ONLY REFLEXED(Performed 05/11/2016) Performed for Flank pain, Abdominal pain, RUQ (right upper quadrant) * COMPREHENSIVE METABOLIC PANEL(Performed 05/11/2016) Performed for Flank pain, Abdominal pain, RUQ (right upper quadrant) * CBC W AUTO DIFFERENTIAL(Performed 05/11/2016) Performed for Flank pain, Abdominal pain, RUQ (right upper quadrant) * URINALYSIS REFLEX MICROSCOPIC REFLEX CULTURE(Performed 05/11/2016) Performed for Flank pain, Abdominal pain, RUQ (right upper quadrant) * CULTURE URINE(Performed 05/11/2016) Performed for Flank pain, Abdominal pain, RUQ (right upper quadrant) * BASIC METABOLIC PANEL (CALCIUM TOTAL)(Performed 02/10/2016) Performed for Chronic systolic heart failure (HCC), BAJWA (dyspnea on exertion) * LIPID PROFILE REFLEX LDL DIRECT(Performed 11/26/2015) Performed for Benign hypertension with CKD (chronic kidney disease) stage III ([facility]) * TSH(Performed 11/26/2015) Performed for Early satiety, Constipation, unspecified constipation type * CBC W AUTO DIFFERENTIAL(Performed 11/26/2015) Performed for Early satiety, Constipation, unspecified constipation type * COMPREHENSIVE METABOLIC PANEL(Performed 11/26/2015) Performed for Early satiety, Constipation, unspecified constipation type, Benign hypertension with CKD (chronic kidney disease) stage III ([facility]) * ECHOCARDIOGRAM 2D WITH DOPPLER(Performed 06/11/2015) Performed for HFrEF (heart failure with reduced ejection fraction) ([facility]) * XR SHOULDER LEFT 2VW OR MORE(Performed 03/04/2015) Performed for Rotator cuff syndrome, left * PULMONARY/RESPIRATORY REPORT ORDER(Performed 10/16/2014) * XR CHEST 2VW(Performed 10/08/2014) Performed for Dyspnea on exertion, Chronic systolic CHF (congestive heart failure) ([facility]), Elevated diaphragm * COMPLETE PFT W/WO BRONCHODILATOR(Performed 10/08/2014) Performed for Dyspnea on exertion, Elevated diaphragm * PULMONARY/RESPIRATORY REPORT ORDER(Performed 10/07/2014) * HEMOGLOBIN A1C(Performed 09/24/2014) Performed for IFG (impaired fasting glucose) * COMPREHENSIVE METABOLIC PANEL(Performed 09/18/2014) Performed for Physical exam, annual, CHF (congestive heart failure), unspecified failure chronicity, systolic, HTN with CKD, CKD Stage III * LIPID PROFILE REFLEX LDL DIRECT(Performed 09/18/2014) Performed for Physical exam, annual, CHF (congestive heart failure), unspecified failure chronicity, systolic, HTN with CKD, CKD Stage III * STRESS TEST, PULMONARY(Performed 08/07/2014) * STRESS TEST WALKING(Performed 07/31/2014) Performed for CHF (congestive heart failure), unspecified failure chronicity, systolic, LBBB (left bundle branch block), Systolic heart failure, unspecified failure chronicity * PATHOLOGY SPECIMEN(Performed 07/17/2014) Performed for Neoplasm of uncertain behavior of skin * PATHOLOGY/CYTOLOGY REPORT ORDER(Performed 11/08/2013) * AUDIOLOGY/TYMPANOMETRY ORDER(Performed 10/08/2013) * ALKALINE PHOSPHATASE BLOOD ISOENZYME PANEL(Performed 10/03/2013) Performed for Bloating, Elevated alkaline phosphatase measurement * LIPASE BLOOD(Performed 10/03/2013) Performed for Bloating, Elevated alkaline phosphatase measurement * AMYLASE BLOOD(Performed 10/03/2013) Performed for Bloating, Elevated alkaline phosphatase measurement * CBC W AUTO DIFFERENTIAL(Performed 10/03/2013) Performed for Bloating, Elevated alkaline phosphatase measurement * VITAMIN D 25-HYDROXY(Performed 09/28/2013) Performed for Unspecified vitamin D deficiency * COMPREHENSIVE METABOLIC PANEL(Performed 09/28/2013) Performed for CKD Stage III, HTN with CKD * LIPID PROFILE REFLEX LDL DIRECT(Performed 09/28/2013) Performed for CKD Stage III, Systolic heart failure (HCC), HTN with CKD * CULTURE URINE(Performed 08/22/2013) Performed for Low back pain * URINALYSIS - POINT OF CARE(Performed 08/22/2013) Performed for Low back pain * ECHOCARDIOGRAM 2D WITH DOPPLER(Performed 04/13/2013) Performed for Non-ischemic cardiomyopathy (HCC) * XR THORACIC SPINE 3VW(Performed 10/12/2012) Performed for Thoracic back pain * LIPASE BLOOD(Performed 08/03/2012) Performed for Abdominal pain, RUQ (right upper quadrant) * AMYLASE BLOOD(Performed 08/03/2012) Performed for Abdominal pain, RUQ (right upper quadrant) * HEPATIC FUNCTION PANEL(Performed 08/03/2012) Performed for Abdominal pain, RUQ (right upper quadrant) * CBC W AUTO DIFFERENTIAL(Performed 08/03/2012) Performed for Abdominal pain, RUQ (right upper quadrant) * CULTURE URINE(Performed 08/02/2012) Performed for Flank pain, Blood in urine * URINALYSIS - POINT OF CARE(Performed 08/02/2012) Performed for Flank pain * US BREAST RIGHT COMPLETE(Performed 07/19/2012) Performed for Abnormal mammogram * DEXA BONE DENSITY 2 SITES(Performed 07/17/2012) Performed for Osteopenia * MAMMO BILAT SCREENING(Performed 07/17/2012) Performed for Screening for breast cancer * VITAMIN D 25-HYDROXY(Performed 06/17/2012) * COMPREHENSIVE METABOLIC PANEL(Performed 06/17/2012) * LIPID PROFILE(Performed 06/17/2012) * TSH(Performed 06/15/2012) Performed for Cold intolerance * BASIC METABOLIC PANEL (CALCIUM TOTAL)(Performed 01/19/2012) Performed for Pain, joint, hand * URIC ACID BLOOD(Performed 01/19/2012) Performed for Pain, joint, hand * C-REACTIVE PROTEIN(Performed 01/19/2012) Performed for Pain, joint, hand * ERYTHROCYTE SEDIMENTATION RATE(Performed 01/19/2012) Performed for Pain, joint, hand * XR HAND RIGHT 3VW OR MORE(Performed 01/10/2012) Performed for Pain of right thumb, Right hand pain * ERYTHROCYTE SEDIMENTATION RATE(Performed 12/23/2011) Performed for Colitis * CBC W AUTO DIFFERENTIAL(Performed 12/23/2011) Performed for Colitis * CULTURE URINE(Performed 11/18/2011) Performed for Right flank pain * XR CHEST 2VW(Performed 11/18/2011) Performed for Chest pain * URINALYSIS - POINT OF CARE(Performed 11/18/2011) Performed for Right flank pain * ERYTHROCYTE SEDIMENTATION RATE(Performed 10/22/2011) Performed for Colitis * BASIC METABOLIC PANEL (CALCIUM TOTAL)(Performed 10/22/2011) Performed for Colitis * CBC W AUTO DIFFERENTIAL(Performed 10/22/2011) Performed for Colitis * ENDOSCOPY, COLON, DIAGNOSTIC(Performed 10/13/2011) * GROSS + MICRO EXAM(Performed 10/13/2011) * CBC W AUTO DIFFERENTIAL(Performed 08/12/2011) Performed for Abdominal pain, LLQ (left lower quadrant), Diverticulitis of colon * LIPID PROFILE(Performed 03/24/2011) Performed for HTN with CKD * COMPREHENSIVE METABOLIC PANEL(Performed 03/24/2011) Performed for Abdominal pain, LLQ (left lower quadrant) * CBC W AUTO DIFFERENTIAL(Performed 03/24/2011) Performed for Abdominal pain, LLQ (left lower quadrant) * URINALYSIS - POINT OF CARE(Performed 03/23/2011) Performed for Abdominal pain, LLQ (left lower quadrant) * VITAMIN D 25-HYDROXY(Performed 08/13/2010) Performed for Osteopenia * LIPID PROFILE(Performed 08/13/2010) Performed for Systolic heart failure, HTN (hypertension), benign * GENERAL HEALTH PANEL(Performed 08/13/2010) Performed for Systolic heart failure, HTN (hypertension), benign * BASIC METABOLIC PANEL (CALCIUM TOTAL)(Performed 06/23/2010) Performed for SOB (shortness of breath) * IN TTE W/DOPPLER, COMPLETE(Performed 06/04/2010) Performed for Non-ischemic cardiomyopathy (HCC), HTN (hypertension), Mixed hyperlipidemia, Other dyspnea and respiratory abnormality * COMPLETE PFT W/WO BRONCHODILATOR(Performed 05/21/2010) Performed for Other dyspnea and respiratory abnormality * BASIC METABOLIC PANEL (CALCIUM TOTAL)(Performed 05/18/2010) Performed for Non-ischemic cardiomyopathy (HCC), Mixed hyperlipidemia, CKD (chronic kidney disease) * BASIC METABOLIC PANEL (CALCIUM TOTAL)(Performed 03/26/2010) Performed for LBBB (left bundle branch block), Systolic heart failure, GERD (gastroesophageal reflux disease) * CT ABDOMEN PELVIS W CONTRAST(Performed 12/02/2009) Performed for Abdominal pain, Bowel habit changes * CBC W AUTO DIFFERENTIAL(Performed 12/02/2009) * COMPREHENSIVE METABOLIC PANEL(Performed 12/02/2009) * URINALYSIS - POINT OF CARE(Performed 12/02/2009) Performed for Abdominal pain * BASIC METABOLIC PANEL (CALCIUM TOTAL)(Performed 09/04/2009) Performed for LBBB (Left Bundle Branch Block), Systolic Heart Failure, HTN (Hypertension), Benign, Renal Insufficiency, Cardiomyopathy * COMPREHENSIVE METABOLIC PANEL(Performed 07/01/2009) Performed for Systolic Heart Failure, HTN (Hypertension), Benign * LIPID PROFILE(Performed 07/01/2009) Performed for Systolic Heart Failure, HTN (Hypertension), Benign * EKG 12-LEAD(Performed 06/04/2009) Performed for Chf (Congestive Heart Failure) (Hcc), LBBB (Left Bundle Branch Block), Hypertension, Mixed Hyperlipidemia * IN ECG MONIT/REPRT UP TO 48 HRS(Performed 05/02/2009) Performed for Hypertension, GERD (Gastroesophageal Reflux Disease), Diverticulosis, LBBB (Left Bundle Branch Block) * BASIC METABOLIC PANEL (CALCIUM TOTAL)(Performed 04/09/2009) Performed for Hypertension, GERD (Gastroesophageal Reflux Disease), Diverticulosis, LBBB (Left Bundle Branch Block) * CBC W AUTO DIFFERENTIAL(Performed 01/08/2009) Performed for Malaise and Fatigue * COMPREHENSIVE METABOLIC PANEL(Performed 01/08/2009) Performed for Hypertension, Unspecified Combined Systolic and Diastolic Heart Failure (HCC) * LIPID PROFILE(Performed 01/08/2009) Performed for Hypertension * CARDIAC PROCEDURE ORDER(Performed 12/25/2008) * CARDIAC PROCEDURE ORDER(Performed 12/25/2008) * BASIC METABOLIC PANEL (CALCIUM TOTAL)(Performed 12/20/2008) Performed for Other Nonspecific Abnormal Cardiovascular System F * CBC W AUTO DIFFERENTIAL(Performed 12/20/2008) Performed for Other Nonspecific Abnormal Cardiovascular System F * IN ECG MONIT/REPRT UP TO 48 HRS(Performed 10/29/2008) Performed for Nonspecific Abnormal Electrocardiogram (ECG) (EKG), Palpitations * CANCER ANTIGEN (CA)125 BLOOD(Performed 10/28/2008) Performed for Constipation, Abdominal Pain, Generalized * TSH(Performed 10/22/2008) Performed for Palpitations, LBBB (Left Bundle Branch Block) * COMPREHENSIVE METABOLIC PANEL(Performed 10/22/2008) Performed for Palpitations, LBBB (Left Bundle Branch Block) * CBC W AUTO DIFFERENTIAL(Performed 10/22/2008) Performed for Palpitations, LBBB (Left Bundle Branch Block) * CARDIAC EKG ORDER(Performed 10/22/2008) * MAMMO UNILATERAL DIAG LEFT(Performed 02/01/2008) Performed for Abnormal Mammogram * MAMMO BILAT SCREENING(Performed 01/24/2008) Performed for Other Screening Mammogram * DEXA BONE DENSITY 2 SITES(Performed 01/24/2008) Performed for Special Screening for Osteoporosis * VAGINOSIS DNA PROBE(Performed 12/26/2007) * PAP LB RFLX HPV ASCU(Performed 12/26/2007) Performed for Well Woman Exam with Routine Gynecological Exam * US ABDOMEN LIMITED(Performed 11/16/2007) Performed for Abdominal Pain, Epigastric * LIPASE BLOOD(Performed 11/15/2007) Performed for Epigastric Pain * AMYLASE BLOOD(Performed 11/15/2007) Performed for Epigastric Pain * COMPREHENSIVE METABOLIC PANEL(Performed 11/15/2007) Performed for Epigastric Pain * CBC W AUTO DIFFERENTIAL(Performed 11/15/2007) Performed for Epigastric Pain * T4 FREE(Performed 07/28/2007) Performed for GERD (Gastroesophageal Reflux Disease), Htn, Diverticulosis, Hyperlipidemia * T3 FREE(Performed 07/28/2007) Performed for GERD (Gastroesophageal Reflux Disease), Htn, Diverticulosis, Hyperlipidemia * TSH(Performed 07/28/2007) Performed for GERD (Gastroesophageal Reflux Disease), Htn, Diverticulosis, Hyperlipidemia * AMB REFERRAL TO CARDIOLOGY(Performed 07/28/2007) Performed for LBBB (Left Bundle Branch Block), HTN (Hypertension), Benign * BASIC METABOLIC PANEL (CALCIUM TOTAL)(Performed 07/19/2007) Performed for HTN (Hypertension), Benign * LIPID PROFILE(Performed 07/19/2007) Performed for HTN (Hypertension), Benign * FL SPINAL INJECTION OR ASPIRATE(Performed 09/27/2006) Performed for Spinal Stenosis-Lumbar * GROSS + MICRO EXAM(Performed 04/12/1997) Results * VITAMIN B12 (09/21/2021 9:27 AM CDT) Vitamin B12 562 213 - 816 pg/mL [facility] ACCOUNT BILL Blood BLOOD SPECIMEN / Unknown 09/21/2021 9:27 AM CDT 09/21/2021 Narrative Resulting Agency Comment Lab Testing performed at: [place] [address] ?? [place] [phone] Lisa Gottlieb DIAMOND BROKER-SPEECH THERAPIST TECHNICIAN LAB - CHEMISTRY ORDERABLES Performing Organization Address City/[facility]/ZIP Co de Phone Number [facility] ACCOUNT BILL [address] [place] [address] * TSH (09/21/2021 9:27 AM CDT) Only the most recent of5 resultswithin the time period is included. TSH 1.3784 0.35 - 4.94 uIU/mL [facility] ACCOUNT BILL Blood BLOOD SPECIMEN / Unknown 09/21/2021 9:27 AM CDT 09/21/2021 Narrative Resulting Agency Comment Lab Testing performed at: [place] [id number] ?? [place] [phone] Lisa Gottlieb DIAMOND BROKER-SPEECH THERAPIST TECHNICIAN LAB - CHEMISTRY ORDERABLES [facility] ACCOUNT BILL [address] [place] [address] * (ABNORMAL) FOLATE (09/21/2021 9:21 AM CDT) Folate 4.3(L) 7.0 - 31.4 ng/mL [facility] ACCOUNT BILL Blood BLOOD SPECIMEN / Unknown 09/21/2021 9:21 AM CDT 09/21/2021 Narrative Resulting Agency Comment Lab Testing performed at: [facility] [address] ?? [place] [address] [phone] Lisa Gottlieb DIAMOND BROKER-SPEECH THERAPIST TECHNICIAN LAB - CHEMISTRY ORDERABLES [facility] ACCOUNT BILL [address] [place] [address] * PATHOLOGY/CYTOLOGY REPORT ORDER (09/18/2021) Only the most recent of3 resultswithin the time period is included. 09/18/2021 Narrative 09/18/2021 Ordered by an unspecified provider. Scanned Document LAB - PATHOLOGY/CYTO LOGY ORDERABLES * ENDOSCOPY, COLON, SCREENING (09/17/2021) [place] APRN-KARSON GI PROCEDURE OR DERABLES Performing Organization Address City/[facility] Co de Phone Number [facility] RESULT SCAN * LIPID PROFILE REFLEX LDL DIRECT (05/28/2021 12:05 PM CDT) Only the most recent of7 resultswithin the time period is included. Cholesterol 194 <200 mg/dL [facility] ACCOUNT BILL Triglycerides 67 <150 mg/dL [facility] ACCOUNT BILL HDL Cholesterol 55 >40 mg/dL [facility] ACCOUNT BILL VLDL Calculated 13 <=30 mg/dL [facility] ACCOUNT BILL LDL Calculated 126 <130 mg/dL [facility] ACCOUNT BILL Cholesterol/HDL Ratio 3.5 <4.5 [facility] ACCOUNT BILL LDL/HDL Ratio 2.3 <5.0 [facility] ACCOUNT BILL Blood BLOOD SPECIMEN / Unknown 05/28/2021 12:05 PM CDT 05/28/2021 Narrative Resulting Agency Comment Lab Testing performed at: [facility] [address] ?? [place] [address] [phone] Diana Pierce DO LAB - CHEMISTRY CHRIS YUNG [facility] ACCOUNT BILL [address] [place] [address] * REF LAB-PLEASE NOTE (05/28/2021 12:05 PM CDT) Please Note [facility] ACCOUNT BILL Comment: We have received your request for additional testing or test verification. ??You will be notified if we are unable to process your request. 05/28/2021 12:0 5 PM CDT 05/28/2021 Narrative Resulting Agency Comment Lab Testing performed at: [facility] [address] ??[facility] [phone] Diana Pierce DO LAB - CHEMISTRY ORDE Boostable [facility] ACCOUNT BILL [address] [place] [address] * (ABNORMAL) VITAMIN D 25-HYDROXY (05/28/2021 12:05 PM CDT) Only the most recent of4 resultswithin the time period is included. Vitamin D, 25 Hydroxy 15.8(L) 30 - 100 ng/mL [facility] ACCOUNT BILL Comment: Vitamin D Status: ?Deficiency ? <20 ? ng/mL ?Insufficiency ?? 20-30 ??ng/mL ?Sufficiency ? 30-100 ng/mL ?Toxicity ? >100 ?ng/mL Blood BLOOD SPECIMEN / Unknown 05/28/2021 12:05 PM CDT 05/28/2021 Narrative Resulting Agency Comment Lab Testing performed at: [facility] [address] ?? [place] [address] [phone] Diana Pierce DO LAB - CHEMISTRY ORDE Automatic AgencyKATHYA [facility] ACCOUNT BILL [address] [place] [address] * (ABNORMAL) CBC WITH DIFFERENTIAL (05/28/2021 12:05 PM CDT) Only the most recent of20 resultswithin the time period is included. WBC 10.4 4.4 - 10.7 x10E9/L [facility] ACCOUNT BILL RBC 4.55 3.80 - 5.20 x10E12/L [facility] ACCOUNT BILL Hemoglobin 14.0 12.0 - 15.6 gm/dL [facility] ACCOUNT BILL Hematocrit 45.1 35.9 - 45.5 % [facility] ACCOUNT BILL MCV 99.1(H) 80.7 - 98.3 fl [facility] ACCOUNT BILL MCH 30.8 26.7 - 34.0 pg [facility] ACCOUNT BILL MCHC 31.0 30.8 - 35.9 gm/dL [facility] ACCOUNT BILL RDW 13.8 12.1 - 14.9 % [facility] ACCOUNT BILL Platelet Count 274 153 - 416 x10E9/L [facility] ACCOUNT BILL Comment:MPV FL BLOOD (SSM) 1 0.9 fl 9.4-12.9 Granulocytes % 62.9 44.0 - 73.0 % [facility] ACCOUNT BILL Lymphocytes % 24.9 20.0 - 43.0 % [facility] ACCOUNT BILL Monocytes % 8.2 5.0 - 13.0 % [facility] ACCOUNT BILL Eosinophils % 3.1 0.0 - 6.0 % [facility] ACCOUNT BILL Basophils % 0.6 0.0 - 2.0 % [facility] ACCOUNT BILL Granulocytes Absolute 6.51 2.01 - 7.14 x10E9/L [facility] ACCOUNT BILL Lymphocytes Absolute 2.58 1.07 - 3.94 x10E9/L [facility] ACCOUNT BILL Monocytes Absolute 0.85 0.26 - 1.07 x10E9/L [facility] ACCOUNT BILL Eosinophils Absolute 0.32 0 - 0.47 x10E9/L [facility] ACCOUNT BILL Basophils Absolute 0.06 0 - 0.08 x10E9/L [facility] ACCOUNT BILL Immature Granulocytes 0.3 0 - 1 % [facility] ACCOUNT BILL Immature Granulocytes Absolute 0.03 0.00 - 0.06 x10E9/L [facility] ACCOUNT BILL nRBC 0 /100 WBC [facility] ACCOUNT BILL Blood BLOOD SPECIMEN / Unknown 05/28/2021 12:05 PM CDT 05/28/2021 Narrative Resulting Agency Comment Lab Testing performed at: [facility] [address] ?? [facility] [phone] Diana Pierce DO LAB - HEMATOLOGY ORD ERABLES Performing Organization Address City/[facility]/ZIP Co de Phone Number [facility] ACCOUNT BILL [address] [place] [address] * (ABNORMAL) BASIC METABOLIC PANEL (CALCIUM TOTAL) (05/28/2021 12:05 PM CDT) Only the most recent of17 resultswithin the time period is included. Glucose 102 70 - 105 mg/dL [facility] ACCOUNT BILL BUN 15 9.8 - 20.1 mg/dL [facility] ACCOUNT BILL Creatinine 1.04 0.57 - 1.11 mg/dL [facility] ACCOUNT BILL eGFR by CKD-EPI 55(L) >=90 mL/min/1.7 3 m2 [facility] ACCOUNT BILL Comment: eGFR result was calculated using the updated CKD-EPI Creatin ine Equations (2020). Prior to go live 2021 the eGFR was calculated us Sodium 142 136 - 145 mmol/L [facility] ACCOUNT BILL Potassium 4.7 3.5 - 5.1 mmol/L [facility] ACCOUNT BILL Chloride 105 98 - 107 mmol/L [facility] ACCOUNT BILL CO2 27 23 - 31 mmol/L [facility] ACCOUNT BILL Calcium 9.6 8.4 - 10.4 mg/dL [facility] ACCOUNT BILL Blood BLOOD SPECIMEN / Unknown 05/28/2021 12:05 PM CDT 05/28/2021 Narrative Resulting Agency Comment Lab Testing performed at: [facility] [address] ?? 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 03/03/2021 ??5:12 PM See progress notes for patient results. Talib Robledo DO DIAGNOSTIC IMAGING O RDERABLES * CT ABD/PELVIS STONE PROTOCOL (11/10/2020 1:35 PM CDT) Anatomical Region Laterality Modality Abdomen Computed Tomogra phy 11/10/2020 1:36 PM CDT Impressions 11/10/2020 1:57 PM CDT No hydronephrosis or nephrolithiasis. No calcific densities along the ureters or in the bladder lumen. Cholecystectomy. No intra-abdominal free fluid or bowel loop distention. Multiple sigmoid and colonic diverticuli, with no evidence of surrounding inflammation. Normal appendix. *Reading Radiologist: Lupe Hernández on 11/10/2020 at 1:57 PM Narrative 11/10/2020 1:[address] abdomen and pelvis without contrast: HISTORY: 54-year-old with right-sided flank pain for 2 weeks. Evaluation for urinary stone. TECHNIQUE: ??CT examination of the abdomen and pelvis was performed using urinary stone protocol. Neither oral nor IV contrast was used which compromises evaluation for other etiologies. Sagittal and coronal reconstructions were also obtained. All CT scans at [facility] are performed using dose optimization techniques as appropriate to a performed exam to include AEC and Adjustment of mA and/or kV according to patient size (as appropriate to indication/reason for exam). COMPARISON: ??CT abdomen pelvis from 05/21/2016. FINDINGS: Abdominal findings: There is no hydronephrosis. There is no nephrolithiasis. There is a right extrarenal pelvis. There are no calcific densities along the ureters or in the bladder lumen. The partial and limited noncontrast evaluation of the abdomen demonstrates evidence of cholecystectomy. There are granulomas ossifications of the spleen. The adrenal glands and pancreatic contours appear unremarkable. There is no intra-abdominal free fluid or bowel loop distention. Pelvic findings: There is no pelvic free fluid. There are multiple sigmoid and colonic diverticula, with no definite evidence of surrounding inflammation. The appendix is normal. There is no pelvic or retroperitoneal lymphadenopathy. There is no aneurysmal dilation of the aorta. There are degenerative changes of lumbosacral junction. The limited images of the lower lungs demonstrate a right lower lobe linear atelectasis. Procedure Note Lupe Hernández MD - 11/10/2020 CT abdomen and pelvis without contrast: HISTORY: 54-year-old with right-sided flank pain for 2 weeks. Evaluation for urinary stone. TECHNIQUE: CT examination of the abdomen and pelvis was performed using urinary stone protocol. Neither oral nor IV contrast was used which compromises evaluation for other etiologies. Sagittal and coronal reconstructions were also obtained. All CT scans at [facility] are performed using dose optimization techniques as appropriate to a performed exam to include AEC and Adjustment of mA and/or kV according to patient size (as appropriate to indication/reason for exam). COMPARISON: CT abdomen pelvis from 05/21/2016. FINDINGS: Abdominal findings: There is no hydronephrosis. There is no nephrolithiasis. There is a right extrarenal pelvis. There are no calcific densities along the ureters or in the bladder lumen. The partial and limited noncontrast evaluation of the abdomen demonstrates evidence of cholecystectomy. There are granulomas ossifications of the spleen. The adrenal glands and pancreatic contours appear unremarkable. There is no intra-abdominal free fluid or bowel loop distention. Pelvic findings: There is no pelvic free fluid. There are multiple sigmoid and colonic diverticula, with no definite evidence of surrounding inflammation. The appendix is normal. There is no pelvic or retroperitoneal lymphadenopathy. There is no aneurysmal dilation of the aorta. There are degenerative changes of lumbosacral junction. The limited images of the lower lungs demonstrate a right lower lobe linear atelectasis. IMPRESSION No hydronephrosis or nephrolithiasis. No calcific densities along the ureters or in the bladder lumen. Cholecystectomy. No intra-abdominal free fluid or bowel loop distention. Multiple sigmoid and colonic diverticuli, with no evidence of surrounding inflammation. Normal appendix. *Reading Radiologist: Lupe Hernández on 11/10/2020 at 1:57 PM Steve Joseph DO CT ORDERABLES * (ABNORMAL) COMPREHENSIVE METABOLIC PANEL (11/10/2020 1:19 PM CDT) Only the most recent of15 resultswithin the time period is included. Glucose 118 73 - 118 mg/dL 11/10/2020 1:56 PM CDT [facility] Sodium 142 128 - 145 mmol/L 11/10/2020 1:56 PM T [facility] Potassium 3.9 3.6 - 5.1 mmol/L 11/10/2020 1:56 PM T [facility] Chloride 109(H) 98 - 108 mmol/L 11/10/2020 1:56 PM [facility] CO2 30 18 - 33 mmol/L 11/10/2020 1:56 PM T [facility] Calcium 9.4 8 - 10.3 mg/dL 11/10/2020 1:56 PM [facility] Anion Gap 3(L) 8 - 16 mmol/L 11/10/2020 1:56 PM [facility] BUN 15 7 - 22 mg/dL 11/10/2020 1:56 PM [facility] Creatinine 1.10 0.60 - 1.20 mg/dL 11/10/2020 1:56 PM [facility] Alkaline Phosphatase 138 42 - 141 U/L 11/10/2020 1:56 PM [facility] ALT 22 10 - 47 U/L 11/10/2020 1:56 PM [facility] AST 28 11 - 38 U/L 11/10/2020 1:56 PM [facility] Protein Total 7.3 6.4 - 8.1 gm/dL 11/10/2020 1:56 PM [facility] Albumin 2.9(L) 3.3 - 5.5 gm/dL 11/10/2020 1:56 PM [facility] Bilirubin Total 0.7 0.2 - 1.6 mg/dL 11/10/2020 1:56 PM [facility] eGFR by MDRD 48(L) >60 mL/min/1.7 3m2 11/10/2020 1:56 PM [facility] eGFR by MDRD 59(L) >60 mL/min/1.7 3m2 11/10/2020 1:56 PM [facility] Blood BLOOD SPECIMEN / Unknown Venipuncture / Unknown 11/10/2020 1:19 PM CDT 11/10/2020 1:42 PM CDT Narrative [facility] - 11/10/2020 1:56 PM CDT INST QC: OK ?CHEM QC: OK HEM: -12 ??LIP: 106 ??ICT: 1 CHEMISTRY QC: ?98 ACCEPTABLE MINIMUM: ??50 Steve Joseph DO LAB - CHEMISTRY ORDE RABKATHYA [facility] [address] [place], [place] [id number] [place] [address] * (ABNORMAL) URINE MICROSCOPIC ONLY REFLEX TO CULTURE (11/10/2020 1:12 PM CDT) Reflex Status Culture to follow 11/10/2020 2:19 PM CDT [facility] RBC UA 0-2 None Seen, 0-2, 3-5 # /hpf 11/10/2020 2:19 PM CDT [facility] WBC UA 11-20(A) None Seen, 0-5 # /hpf 11/10/2020 2:19 PM CDT [facility] Bacteria UA Trace(A) None Seen 11/10/2020 2:19 PM CDT [facility] Squamous Epithelial Cells 6-10(A) None Seen, 0-2, 3-5 /hpf 11/10/2020 2:19 PM CDT [facility] Mucus UA 1+ /LPF 11/10/2020 2:19 PM CDT [facility] Urine URINE SPECIMEN OBTAINED BY CLEAN CATCH PROCEDURE / Unknown Collection / Unknown 11/10/2020 1:12 PM CDT 11/10/2020 1:35 PM CDT Narrative [facility] - 11/10/2020 2:19 PM CDT Steve Joseph DO LAB - URINALYSIS ORD ERABLES Performing Organization Address City/[facility]/ZIP Co de Phone Number [facility] [address] [place] [address] * (ABNORMAL) URINALYSIS REFLEX MICROSCOPIC REFLEX CULTURE (11/10/2020 1:12 PM CDT) Only the most recent of3 resultswithin the time period is included. Color UA Other(A) Straw, Light Yellow, Yellow, Dark Yellow 11/10/2020 1:39 PM CDT [facility] Clarity UA Slt Cloudy(A) Clear 11/10/2020 1:39 PM CDT [facility] Glucose UA Negative Negative 11/10/2020 1:39 PM CDT [facility] Bilirubin UA Negative Negative 11/10/2020 1:39 PM CDT [facility] Ketone UA Negative Negative 11/10/2020 1:39 PM CDT [facility] Specific [place] UA 1.020 1.005 - 1.030 11/10/2020 1:39 PM CDT [facility] Blood UA Negative Negative 11/10/2020 1:39 PM CDT [facility] pH UA 5.0 5.0 - 8.0 pH 11/10/2020 1:39 PM CDT [facility] Protein UA Negative Negative 11/10/2020 1:39 PM CDT [facility] Urobilinogen UA Negative Negative mg/dL 11/10/2020 1:39 PM CDT [facility] Nitrite UA Negative Negative 11/10/2020 1:39 PM CDT [facility] Leukocyte UA Trace(A) Negative 11/10/2020 1:39 PM CDT [facility] Urine Microscopy Urine microscopy to follow 11/10/2020 1:39 PM CDT [facility] Reflex Status Culture to follow 11/10/2020 1:39 PM T [facility] Urine URINE SPECIMEN OBTAINED BY CLEAN CATCH PROCEDURE / Unknown Collection / Unknown 11/10/2020 1:12 PM CDT 11/10/2020 1:35 PM CDT Steve Joseph DO LAB - URINALYSIS ORD ERABLES [facility] [address] [place] [id number] [place] [address] * CULTURE URINE (11/10/2020 1:12 PM CDT) Only the most recent of6 resultswithin the time period is included. Pathologist [facility] Culture Urine 10,000-50,000 CFU/mL urogenital mallory ABILIO 11/11/2020 6:40 PM CDT [facility] MICRO[facility] Urine URINE SPECIMEN OBTAINED BY CLEAN CATCH PROCEDURE / Unknown Collection / Unknown 11/10/2020 1:12 PM CDT 11/10/2020 1:35 PM CDT Steve Joseph DO LAB - MICROBIOLOGY O RDERABLES [facility] [address] [place] [address], [facility] [phone] * (ABNORMAL) URINALYSIS MICROSCOPIC ONLY REFLEXED (10/29/2020 11:09 AM CDT) Only the most recent of2 resultswithin the time period is included. WBC UA 11-30(A) 0 - 5 /hpf [facility] ACCOUNT BILL RBC UA 0-2 0 - 2 /hpf [facility] ACCOUNT BILL Epithelial Cells (non renal) >10(A) 0 - 10 /hpf [facility] ACCOUNT BILL Epithelial Cells (renal) NOT NEEDED [facility] ACCOUNT BILL Comment:Ancillary determined the test is not needed. Casts ua None seen None seen /lpf [facility] ACCOUNT BILL Casts UA NOT NEEDED [facility] ACCOUNT BILL Comment:Ancillary determined the test is not needed. Crystals UA NOT NEEDED [facility] ACCOUNT BILL Comment:Ancillary determined the test is not needed. Crystals UA NOT NEEDED [facility] ACCOUNT BILL Comment:Ancillary determined the test is not needed. Mucus UA NOT NEEDED [facility] ACCOUNT BILL Comment:Ancillary determined the test is not needed. Bacteria UA Few None seen/Few [facility] ACCOUNT BILL Yeast UA NOT NEEDED [facility] ACCOUNT BILL Comment:Ancillary determined the test is not needed. Trichomonas UA NOT NEEDED [facility] ACCOUNT BILL Comment:Ancillary determined the test is not needed. Comment Urine NOT NEEDED [facility] ACCOUNT BILL Comment:Ancillary determined the test is not needed. 10/29/2020 11:0 9 AM CDT 10/29/2020 Narrative Resulting Agency Comment Lab Testing performed at: [facility] ??[facility] [phone] Diana Pierce DO LAB - URINALYSIS ORD ERABLES Performing Organization Address City/[facility]/ZIP Co de Phone Number [facility] ACCOUNT BILL [address] [place] [address] * (ABNORMAL) HEPATIC FUNCTION PANEL (10/29/2020 11:09 AM CDT) Only the most recent of2 resultswithin the time period is included. Protein Total 7.3 6.4 - 8.3 gm/dL [facility] ACCOUNT BILL Albumin 3.5 3.2 - 4.6 gm/dL [facility] ACCOUNT BILL Bilirubin Total 0.5 0.2 - 1.2 mg/dL [facility] ACCOUNT BILL Bilirubin Direct 0.3 <=0.5 mg/dL [facility] ACCOUNT BILL Alkaline Phosphatase 155(H) 40 - 150 U/L [facility] ACCOUNT BILL AST 20 5 - 34 U/L [facility] ACCOUNT BILL ALT 25 0 - 61 U/L [facility] ACCOUNT BILL Blood BLOOD SPECIMEN / Unknown 10/29/2020 11:09 AM CDT 10/29/2020 Narrative Resulting Agency Comment Lab Testing performed at: [facility] [address] ?? [facility] [phone] Diana Pierce DO LAB - CHEMISTRY ORDE RABLES Performing Organization Address [facility] Co de Phone Number [facility] ACCOUNT BILL [address] [place] [address] * ECHOCARDIOGRAM 2D WITH DOPPLER (11/23/2019 10:32 AM CDT) Only the most recent of8 resultswithin the time period is included. 11/23/2019 10:3 2 AM CDT Narrative Procedure Note Neo Real MD - 11/26/2019 . [facility] [address] [place] [address] Echocardiography Examination Transthoracic Name: MARIALUISA SCHERER [facility]#: MR#: [id number] Admission Number: [id number] Study Date: 11/23/2019 Study Time: 10:37 AM Date Of : 11/13/1945 Age: 74 years Height: 66 in. (167.6 cm) Weight: 203 lbs. (92.08 kg) BSA: 2.01 m2 Gender: Female Blood Pressure: 126 mmHg / 78 mmHg Heart Rate: Exam Details Procedure Ordered: ECHOCARDIOGRAM 2D W/DOPPLER Procedure Components: Complete 2D, M-mode, complete spectral Doppler, color Doppler Procedure Status: Routine study Image Quality: Adequate Facility Location: [facility] [place] Indication: Assess LV Function Procedure Screen Roller: DEVIN Garcia Ordering Provider: Lenny Zepeda MD, [facility], DARA ANAYA Reading Physician: Neo Real MD, [facility] Reading Group: [facility] Conclusions Left Ventricle: ? ? Left ventricle is normal in size. ? ? Systolic left ventricular function is at the lower limits of normal. ? ? EF range is 50 % -55 %. ? ? Left ventricle wall thickness is normal. ? ? Doppler parameters are consistent with abnormal left ventricular relaxation (Grade 1 diastolic dysfunction). IVS: ? ? There is mild paradoxical motion in the interventricular septum. Right Ventricle: ? ? Normal size right ventricle. ? ? Right ventricular systolic function is normal. ? ? Pulmonary artery pressure normal. Tricuspid Valve Measurements Patient: MARIALUISA SCHERER Study Date: 11/23/2019 10:37 AM Page 1 of 4 ? ? RVSP: 28 mmHg. Follow up: Findings Left Ventricle: Left ventricle is normal in size. Systolic left ventricular function is at the lower limits of normal. EF evaluated by biplane method of disks. Left ventricle wall thickness is normal. The basal inferoseptal, basal inferior, mid inferoseptal and mid inferior left ventricular wall segments are mildly hypokinetic. Doppler parameters are consistent with abnormal left ventricular relaxation (Grade 1 diastolic dysfunction). IVS: There is mild paradoxical motion in the interventricular septum. Right Ventricle: Normal size right ventricle. Right ventricular wall thickness is normal. Right ventricular systolic function is normal. Pulmonary artery pressure normal. Left Atrium: The left atrium is mildly dilated. Right Atrium: The right atrium is normal in size. Mitral Valve: Mitral leaflets exhibit normal cuspal separation. Trivial mitral regurgitation. No mitral valve stenosis. Aortic Valve: Aortic leaflets exhibit normal cuspal separation. No aortic valve regurgitation. There is no aortic stenosis. Tricuspid Valve: Tricuspid valve leaflets are normal. Trivial tricuspid regurgitation. No tricuspid valve stenosis. Pulmonic Valve: Pulmonic leaflets exhibit normal cuspal separation. No pulmonic valve regurgitation is evident. There is no pulmonic valve stenosis. Aorta: The aorta is normal. No dilation of the ascending aorta. The aortic root exhibits normal size. Great Vessels: IVC: The inferior vena cava is normal in size and course. Pericardium: The pericardium is normal in appearance. No pericardial effusion. Clinical Data NYHA Functional Class: Class III Dyslipidemia: Yes Hypertension: Yes Prior Heart Failure: Yes Dyspnea: On Mild Exertion Measurements Anatomy Label Value Normal Value Aorta AoRoot, 2D 2.8 cm (1.4cm - 2.6cm) Aortic Valve AV Vmean 1.03 m/s Aortic Valve AV VTI 28.99 cm Aortic Valve AV PGmax 7 mmHg Aortic Valve AV PGmean 5 mmHg Patient: MARIALUISA SCHERER Study Date: 11/23/2019 10:37 AM Page 2 of 4 Aortic Valve AV Vmax, Curve 1.28 m/s (1m/s - 1.7m/s) Aortic Valve LVOT VTI / AV VTI 0.56 Aortic Valve LEONELA D (continuity eq. VTI) 1.8 cm?? Aortic Valve LEONELA Index (continuity 0.9 cm??/m?? eq.Vmax) Aortic Valve LVOT Vmax / AV Vmax 0.59 Interventricular septum IVSd, 2D 1 cm (0.6cm - 1.1cm) Left Atrium LADs, 2D 3.9 cm (2.7cm - 3.8cm) Left Atrium LA Area s, A4C 20.9 cm?? (0cm?? - 20cm??) Left Atrium LA Area s, A2C 18.1 cm?? (0cm?? - 20cm??) Left Atrium LAESV, MOD4 65 ml (22ml - 52ml) Left Atrium LAESV, MOD2 48 ml (22ml - 52ml) Left Atrium LAESV index, MOD4 32.3 ml/m?? Left Atrium LAESV index, MOD2 23.9 ml/m?? Left Atrium LAESV index, AL4 33.8 ml/m?? Left Atrium LAESV index, AL2 24.9 ml/m?? Left Ventricle LVOT Vmax 0.75 m/s (0.7m/s - 1.1m/s) Left Ventricle LVOTd 2 cm (1.8cm - 2cm) Left Ventricle LVOT VTI 16.28 cm (18cm - 22cm) Left Ventricle LVOT PGmax 2 mmHg Left Ventricle LVDd, 2D 5.1 cm (3.7cm - 5.2cm) Left Ventricle LVDs, 2D 3.9 cm (2.2cm - 3.5cm) Left Ventricle LVPWd, 2D 1 cm (0.6cm - 0.9cm) Left Ventricle FS, 2D 23.53 % Left Ventricle LVEDV, BP 67 ml (56ml - 104ml) Left Ventricle LVESV, BP 23 ml (19ml - 49ml) Left Ventricle LVEDV Index, BP 33.3 ml/m?? (35ml/m?? - 75ml/m??) Left Ventricle LVESV Index, BP 11.4 ml/m?? (12ml/m?? - 30ml/m??) Left Ventricle LVOT PGmean 1 mmHg Left Ventricle LVOT Vmean 0.59 m/s Left Ventricle LVOT Area 3.1 cm?? Left Ventricle EF lower range (%) 50 % Left Ventricle EF upper range (%) 55 % Left Ventricle Diastolic MV E Vmax 0.78 m/s Function Left Ventricle Diastolic MV A Vmax 0.89 m/s Function Left Ventricle Diastolic MV E/A 0.88 Function Left Ventricle Diastolic MV E/E' lateral 16.16 Function Left Ventricle Diastolic MV E/E' septal 14.07 (0.45 - 1.25) Function Left Ventricle Diastolic MV DT 196 ms Function Left Ventricle Diastolic MV E' septal 0.06 m/s Function Left Ventricle Diastolic MV E' lateral 0.05 m/s Function Left Ventricle Diastolic MV E/E' mean 14.18 Patient: MARIALUISA SCHERER Study Date: 11/23/2019 10:37 AM Page 3 of 4 Function Left Ventricle Diastolic MV E' mean 0.06 m/s Function Mitral Valve MV Dec Dawson 3.74 m/s?? Pulmonic Valve PV PGmax 4 mmHg Pulmonic Valve PV Vmax, Caliper 0.98 m/s (0.6m/s - 0.9m/s) Right Ventricle Diastolic TR Pmax 25 mmHg Function Tricuspid Valve RVSP 28 mmHg Tricuspid Valve RA Pressure 3 mmHg Tricuspid Valve TR Vmax 2.48 m/s (No Signature Object) Wall Motion Scores -1 - hyperkinesia, 0 - not evaluated, 1 - normal, 1.5 - mild hypokinesia, 2 - hypokinesia, 2.5 - severe hypokinesia, 3 - akinesia, 4 - dyskinesia, 5 - aneurysm Patient: MARIALUISA SCHERER Study Date: 11/23/2019 10:37 AM Page 4 of 4 Lenny Zepeda MD ECHO ORDERABLES Performing Organization Address [facility] Co de Phone Number [facility] CC[facility] * EKG 12-LEAD (03/15/2019) Only the most recent of3 resultswithin the time period is included. Lenny Zepeda MD ECG ORDERABLES Performing Organization Address [facility] Co de Phone Number [facility] RESULT SCAN * MRI BRAIN AND IAC W WO CONTRAST (02/23/2019 10:42 AM SPRAY GUN REPAIRER HELPER) Anatomical Region Laterality Modality Head Magnetic Resonan ce 02/23/2019 11:0 0 AM SPRAY GUN REPAIRER HELPER Impressions 02/23/2019 11:15 AM SPRAY GUN REPAIRER HELPER Chronic small vessel ischemic white matter changes. Trace left mastoid effusion. Otherwise normal. Reading Radiologist: Luis Miguel Whiting MD on 02/23/2019 at 11:15 AM Narrative 02/23/2019 11:15 AM SPRAY GUN REPAIRER HELPER Procedure Title: MRI IAC AND BRAIN WWO CONT*[id number] HISTORY: Unspecified sensorineural hearing loss COMPARISON: No relevant. TECHNIQUE: Multiplanar multisequence MR imaging with and without intravenous contrast of the brain and temporal bone structures (IACs). Contrast Details: EGFR greater than 30. ??Dotarem, in mL: 18. FINDINGS: Confluent and scattered foci of abnormal high T2/FLAIR signal are noted in the periventricular and deep white matter; these are nonspecific, but likely related to chronic small vessel ischemic changes. No midline shift, mass lesion, evidence of acute intracranial hemorrhage or infarct, or extra-axial fluid collection is identified. No abnormal restricted diffusion. Prior bilateral cataract surgery. Trace left mastoid effusion. Temporal bone structures otherwise normal. No abnormal enhancement. Procedure Note Luis Miguel Whiting MD - 02/23/2019 Procedure Title: MRI IAC AND BRAIN WWO CONT*[id number] HISTORY: Unspecified sensorineural hearing loss COMPARISON: No relevant. TECHNIQUE: Multiplanar multisequence MR imaging with and without intravenous contrast of the brain and temporal bone structures (IACs). Contrast Details: EGFR greater than 30. Dotarem, in mL: 18. FINDINGS: Confluent and scattered foci of abnormal high T2/FLAIR signal are noted in the periventricular and deep white matter; these are nonspecific, but likely related to chronic small vessel ischemic changes. No midline shift, mass lesion, evidence of acute intracranial hemorrhage or infarct, or extra-axial fluid collection is identified. No abnormal restricted diffusion. Prior bilateral cataract surgery. Trace left mastoid effusion. Temporal bone structures otherwise normal. No abnormal enhancement. IMPRESSION Chronic small vessel ischemic white matter changes. Trace left mastoid effusion. Otherwise normal. Reading Radiologist: Luis Miguel Whiting MD on 02/23/2019 at 11:15 AM Steven Le MD MR ORDERABLES * CARDIAC RHYTHM STRIP ORDER (10/04/2017 10:33 PM CDT) Narrative 10/04/2017 10:33 PM CDT Ordered by an unspecified provider. Scanned Document CARDIAC SERVICES ORD ERABLES * NM CARDIAC MUGA SCAN (10/04/2017 1:39 PM CDT) Anatomical Region Laterality Modality Chest Nuclear Digisoni cs 10/04/2017 1:00 PM CDT Narrative Procedure Note Neo Real MD - 10/04/2017 [address] [facility] [address] [place] [address] [facility].AppliLog/heart Nuclear Multi-gated Analysis (MUGA) Scan Report Pat.Name: MARIALUISA SCHERER.ID: [id number] St.Date: 10/04/2017 Exam Time: 1:00:00 PM Study Type:Nuclear Multi-gated Analysis (MUGA) Age: 911/13/1945,71Y Sex: FEMALE Sonogrphr: SABRINA Pratt Procedures:MUGA Visit ID: [id number] Risk Factors:Hypertension, Hypercholesterolemia, Family history ++++++++++++++++++++++++++++++++++++ SUMMARY: ++++++++++++++++++++++++++++++++++++ Findings: Image quality is technically adequate. There is normal distribution of activity in the left ventricle. Gated images demonstrate normal left ventricular size. Left ventricular volumes EDv 73ml, ESv 31ml. Left ventricular ejection fraction is mildly reduced at 45%. Opinion: 1. Left ventricle ejection fraction is mildly reduced at 45%. 2. Regional wall motion contractility is mildly reduced . 3. Left ventricular volumes EDv 73ml, ESv 31ml. Signed 10/04/2017 04:47 PM Neo Real MD [facility] Lenny Zepeda MD NM ORDERABLES * CARDIAC EKG ORDER (10/04/2017 5:59 AM CDT) Only the most recent of2 resultswithin the time period is included. Narrative 10/04/2017 5:59 AM CDT Ordered by an unspecified provider. Scanned Document CARDIAC SERVICES ORD ERABLES * NM MYOCARD PERFUSION SPECT STRESS AND REST (09/30/2017 12:23 PM CDT) Anatomical Region Laterality Modality Chest Nuclear Medicine 09/30/2017 1:42 PM CDT Impressions 09/30/2017 1:51 PM CDT Suspected physiologic apical thinning though a small focal infarction involving the apex may be a consideration. No ischemia or other suspected infarction identified. Left ventricular ejection fraction of 30% with moderate generalized hypokinesis. The overall findings are consistent with moderate left ventricular dysfunction. Reading Radiologist: Mian Montanez MD on 09/30/2017 at 1:51 PM Narrative 09/30/2017 1:51 PM CDT Nuclear medicine myocardial stress examination: History: Chest pain, systolic heart failure, hypertension, positive family history. Technique: Initially, resting SPECT imaging of the heart was performed on 09/30/2017 following intravenous administration of 11 mCi Tc-99m Myoview. The patient was then stressed using exercise technique. Next, stress SPECT imaging of the heart was performed using 33 mCi Tc-99m Myoview. No relevant prior study is available. Findings: The stress images show mildly decreased perfusion involving the apex. Perfusion elsewhere is within normal limits. The resting images also show mildly decreased perfusion involving the apex with perfusion elsewhere within normal limits. The findings are consistent with physiologic apical thinning though a small focal infarction involving the apex may be a consideration. There is no ischemia or other suspected infarction identified. The calculated left ventricular ejection fraction is 30%. There is moderate generalized hypokinesis with no focal wall motion abnormality identified. The overall findings are consistent with moderate left ventricular dysfunction. Procedure Note Mian Montanez MD - 09/30/2017 Nuclear medicine myocardial stress examination: History: Chest pain, systolic heart failure, hypertension, positive family history. Technique: Initially, resting SPECT imaging of the heart was performed on 09/30/2017 following intravenous administration of 11 mCi Tc-99m Myoview. The patient was then stressed using exercise technique. Next, stress SPECT imaging of the heart was performed using 33 mCi Tc-99m Myoview. No relevant prior study is available. Findings: The stress images show mildly decreased perfusion involving the apex. Perfusion elsewhere is within normal limits. The resting images also show mildly decreased perfusion involving the apex with perfusion elsewhere within normal limits. The findings are consistent with physiologic apical thinning though a small focal infarction involving the apex may be a consideration. There is no ischemia or other suspected infarction identified. The calculated left ventricular ejection fraction is 30%. There is moderate generalized hypokinesis with no focal wall motion abnormality identified. The overall findings are consistent with moderate left ventricular dysfunction. IMPRESSION Suspected physiologic apical thinning though a small focal infarction involving the apex may be a consideration. No ischemia or other suspected infarction identified. Left ventricular ejection fraction of 30% with moderate generalized hypokinesis. The overall findings are consistent with moderate left ventricular dysfunction. Reading Radiologist: Mian Montanez MD on 09/30/2017 at 1:51 PM Samer Asif YOUNG ORDERABLES * STRESS TEST LEXISCAN (NUCLEAR) (09/30/2017 12:00 PM CDT) 09/30/2017 12:0 0 PM CDT Narrative Procedure Note Mahad Gold MD - 09/30/2017 4:41 PM CDT [facility] Lexiscan Nuclear Stress Test PATIENT NAME: MARIALUISA SCHERER MR#: [id number] ROOM#: [id number] CSN: [id number] ADMISSION DATE: 09/29/2017 SEX: F PHYSICIAN: Mahad Gold M.D. : 11/13/1945 DATE: 09/30/2017 Resting HR 82 BP 149/100 Post 1Min HR 102 BP 121/79 Post 2 Min HR 101 BP 146/97 Post 3 Min HR 100 BP 133/88 Post 4 Min HR 99 BP 139/92 Procedure Data Medication Injection Time 1149 Stress test was performed to evaluate the patient for coronary arterydisease. The patient had chest discomfort and hypertension. Chemical stress test evaluation was obtained. Resting electrocardiogram shows sinus rhythm with right bundle-branchblock at a heart rate of 82 per minute and resting ventricular dysrhythmias. The patient received 0.4 mg of Lexiscan bolus injection followed bysecond dose of isotope injection. Ventricular dysrhythmias did not become worse. The patient had no chest discomfort. ECG was non-diagnostic dueto LBBB. Blood pressure remained stable without any bradycardia or heart block. IMPRESSION: 1. Nondiagnostic electrocardiogram for ischemia during Lexiscaninjection due to left bundle-branch block. 2. Resting ventricular arrhythmia without changes. 3. No chest discomfort. 4. The test should be correlated with myocardial scan. DICTATOR: MAHAD GOLD M.D. ST/MODL #:[id number] Mahad Gold MD CARDIAC SERVICES ORD ERABLES [facility] MEDQUIST * (ABNORMAL) NT-PRO BNP (09/30/2017 3:48 AM CDT) NT-proBNP 366.0(H) <300.0 pg/mL 09/30/2017 4:45 AM CDT [facility] Blood BLOOD SPECIMEN / Unknown Lab Venipuncture / Unknown 09/30/2017 3:48 AM CDT 09/30/2017 4:23 AM CDT Narrative [facility] - 09/30/2017 4:45 AM CDT NT-proBNP Patient Age ? Acute HF Unlikely ? Acute HF Likely <50 years ? <300 pg/mL ? >450 pg/mL 50-75 years ?<300 pg/mL ? >900 pg/mL >75 years ? <300 pg/mL ? >1800 pg/mL Reference: JOSE MANUEL Finley et al. ICON Study. Heart Journal (2006) 27, 330- [phone] Both BNP and NT-proBNP derive from the precursor molecule called proBNP which is secreted from the ventricles in response to ventricle volume expansion and/or pressure overload. The secreted proBNP is subsequently cleaved by enzymes to form BNP, the active hormone and NT-proBNP an inactive metabolite. NT-proBNP has a longer half-life of 1.5-2.0 hours verses BNP with a half-life of 20 min for BNP. Both are useful biomarkers of ventricular distension due to increased intracardiac pressure. Both BNP and NT-proBNP increase with age and renal insufficiency. Increased concentrations of NT-proBNP have also been observed in the setting of acute myocardial infarction, right ventricular failure, valvular heart disease, and atrial fibrillation. Porfirio Casey DIAMOND BROKER-SPEECH THERAPIST TECHNICIAN LAB - CHEM ISTRY ORDERABLES [facility] [address] [place] [address] * TSH REFLEX FREE T4 (09/30/2017 3:48 AM CDT) TSH 1.78 0.358 - 3.740 ulU/mL 09/30/2017 4:53 AM CDT [facility] Blood BLOOD SPECIMEN / Unknown Lab Venipuncture / Unknown 09/30/2017 3:48 AM CDT 09/30/2017 4:23 AM CDT Porfirio Casey DIAMOND BROKERGenalyte LAB - CHEM ISTRY ORDERABLES Performing Organization Address [facility] Co de Phone Number [address] [address] * PHOSPHORUS BLOOD (09/30/2017 3:48 AM CDT) Phosphorus 3.9 2.5 - 4.9 mg/dL 09/30/2017 4:53 AM CDT [facility] Blood BLOOD SPECIMEN / Unknown Lab Venipuncture / Unknown 09/30/2017 3:48 AM CDT 09/30/2017 4:23 AM CDT Porfirio Casey DIAMOND BROKERGenalyte LAB - CHEM ISTRY ORDERABLES Performing Organization Address [facility] de Phone Number [address] [address] * MAGNESIUM BLOOD (09/30/2017 3:48 AM CDT) Magnesium 2.2 1.6 - 2.6 mg/dL 09/30/2017 4:53 AM CDT [facility] Blood BLOOD SPECIMEN / Unknown Lab Venipuncture / Unknown 09/30/2017 3:48 AM CDT 09/30/2017 4:23 AM CDT Porfirio Casey DIAMOND BROKERGenalyte LAB - CHEM ISTRY ORDERABLES Performing Organization Address [facility] de Phone Number [address] [address] * TROPONIN I (09/29/2017 7:17 PM CDT) Only the most recent of3 resultswithin the time period is included. Troponin I <0.015 0.000 - 0.049 ng/mL 09/29/2017 7:58 PM CDT [facility] Blood BLOOD SPECIMEN / Unknown Lab Venipuncture / Unknown 09/29/2017 7:17 PM CDT 09/29/2017 7:39 PM CDT Narrative [facility] - 09/29/2017 7:58 PM CDT Note: Diagnosis of myocardial infarction requires symptoms of ischemia or EKG changes of ischemia and Troponin I >99th of normal (0.05 ng/mL). Troponin should be drawn on initial assessment and 3-6 hours later as clinically indicated. Any condition resulting in myocardial cell damage can increase cardiac troponin levels. In addition to myocardial infarction, these include but are not limited to congestive heart failure (CHF), arrhythmia, myocarditis, and non-cardiac related causes such as pulmonary embolism, renal failure and sepsis. Cheikh Bailey DO LAB - CHEMISTRY CHRIS YUNG [facility] [address] [place] [address] * XR CHEST 1VW PORTABLE (09/29/2017 1:59 PM CDT) Anatomical Region Laterality Modality Chest Digital Radiogra phy 09/29/2017 2:04 PM CDT Impressions 09/29/2017 2:04 PM CDT No acute airspace process. Reading Radiologist: Luis Miguel Whiting MD on 09/29/2017 at 2:04 PM Narrative 09/29/2017 2:04 PM CDT Procedure Title: XR CHEST 1VW PORTABLE*[id number] HISTORY: Chest pain, unspecified. COMPARISON: 10/08/2014. FINDINGS: Similar, shallow inspiration. No focal consolidation, pneumothorax, effusion, or overt evidence of edema. Heart size is upper normal, stable. Procedure Note Luis Miguel Whiting MD - 09/29/2017 Procedure Title: XR CHEST 1VW PORTABLE*[id number] HISTORY: Chest pain, unspecified. COMPARISON: 10/08/2014. FINDINGS: Similar, shallow inspiration. No focal consolidation, pneumothorax, effusion, or overt evidence of edema. Heart size is upper normal, stable. IMPRESSION No acute airspace process. Reading Radiologist: Luis Miguel Whiting MD on 09/29/2017 at 2:04 PM Cheikh Bailey DO DIAGNOSTIC IMAGING O RDERABLES * VAS RIGHT VENOUS DUPLEX LE (04/01/2017 3:19 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) Anatomical Region Laterality Modality Intravascular Ul trasound 04/01/2017 3:07 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 Narrative Procedure Note Bola Rosales MD - 04/01/2017 [facility] [address] [place] [address] Lower Extremity Venous Ultrasound Report Pat.Name: MARIALUISA SCHERER Pat.ID: [id number] .Date: 04/01/2017 Exam Time: 3:07:00 PM Study Type:LE Venous Age: 911/13/1945,71Y Sex: FEMALE Sonogrphr: Allison Crespo RVT Pat. Stat.:Outpatient CPT - 4: 40864 Reason for Study:Pain -Leg, right Procedures:Lower Extremity Venous - Right Visit ID: [id number] SUMMARY: No evidence of deep or superficial venous thrombosis or insufficiency of the right lower extremity. FINDINGS: Procedure: Venous duplex imaging of the right lower extremity was performed using color flow and spectral Doppler analysis. The contralateral common femoral vein was also examined. Study Quality: This study is of adequate technical quality. Rt Leg: All vessels seen appear patent and compressible. There was spontaneous and phasic flow seen in all the major veins of the right lower extremity. Appropriate augmentation with distal compression. No evidence of reflux with proximal compression. The left common femoral vein demonstrated phasic and spontaneous flow. Signed 04/01/2017 06:15 PM Bola Rosales MD, [facility] Steve Joseph DO VASCULAR LAB ORDERAB LES * (ABNORMAL) D-DIMER (04/01/2017 11:26 AM SPRAY GUN REPAIRER HELPER) D-Dimer 1.37(H) 0.17 - 0.5 mg/L FEU 04/01/2017 1:02 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 [facility] Blood BLOOD SPECIMEN / Unknown Venipuncture / Unknown 04/01/2017 11:26 AM SPRAY GUN REPAIRER HELPER 04/01/2017 12:29 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 Narrative [facility] - 04/01/2017 1:02 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 The [employer] D-Dimer assay is intended for use as an aid in diagnosis of venous thromboembolism [(VTE): deep vein thrombosis (DVT), pulmonary embolism (PE), and disseminated intravascular coagulation (DIC)], and has received U.S. Food and Drug Administration (FDA) approval to exclude VTE in patients with low or moderate pretest probability of PE or DVT (per Wells' rules). At a clinical cut-off value 0.50 mg/L FEU, the Negative Predictive Value of this assay is 99.8% for excluding PE and 100% for excluding DVT. A very low percentage of patients with VTE may yield D-Dimer results below the cut-off value. An elevated D-Dimer result has low specificity (40.4% for PE, 35.5% for DVT) and is a poor predictor of VTE. An elevated D-Dimer result may indicate DIC in the appropriate clinical setting. Results of this test should always be interpreted in conjunction with the patient's medical history, clinical presentation, and other findings. Steve Joseph DO LAB - COAGULATION OR DERABLES [facility] [address] [place] [address] * XR KNEE 3 VW RIGHT (04/01/2017 11:24 AM SPRAY GUN REPAIRER HELPER) Anatomical Region Laterality Modality Lower Extremity Radiographic Sherman ging 04/01/2017 11:4 4 AM SPRAY GUN REPAIRER HELPER Impressions 04/01/2017 11:45 AM SPRAY GUN REPAIRER HELPER No acute osseous abnormality, right knee. Mild medial, moderate to severe patellofemoral compartment osteoarthrosis changes. Narrative 04/01/2017 11:45 AM SPRAY GUN REPAIRER HELPER Procedure Title: XR KNEE 3 VW RIGHT*[id number] HISTORY: Pain in right knee COMPARISON: No relevant comparison. Additional history (none relevant if blank): . FINDINGS: No fracture or malalignment identified at the right knee. Lateral view is overexposed, preventing assessment for suprapatellar effusion. There is mild medial and moderate to severe patellofemoral compartment osteoarthrosis. Procedure Note Luis Miguel Whiting MD - 04/01/2017 Procedure Title: XR KNEE 3 VW RIGHT*[id number] HISTORY: Pain in right knee COMPARISON: No relevant comparison. Additional history (none relevant if blank): . FINDINGS: No fracture or malalignment identified at the right knee. Lateral view is overexposed, preventing assessment for suprapatellar effusion. There is mild medial and moderate to severe patellofemoral compartment osteoarthrosis. IMPRESSION No acute osseous abnormality, right knee. Mild medial, moderate to severe patellofemoral compartment osteoarthrosis changes. Steve Joseph DO DIAGNOSTIC IMAGING O RDERABLES * XR FEMUR 2 VW RIGHT (04/01/2017 11:24 AM SPRAY GUN REPAIRER HELPER) Anatomical Region Laterality Modality Lower Extremity Radiographic Sherman ging 04/01/2017 11:4 0 AM SPRAY GUN REPAIRER HELPER Impressions 04/01/2017 11:44 AM SPRAY GUN REPAIRER HELPER No right femoral fracture. Osteoarthrosis, medial and patellofemoral compartments. Narrative 04/01/2017 11:44 AM SPRAY GUN REPAIRER HELPER Procedure Title: XR FEMUR 2 VW RIGHT*[id number] HISTORY: Pain in right leg radiating to knee . COMPARISON: No relevant comparison. Additional history (none relevant if blank): . FINDINGS: No fracture identified along the right femur. Osteoarthrosis changes are noted at the medial and patellofemoral compartments, relatively advanced at the patellofemoral compartment. Soft tissues unremarkable. Procedure Note Luis Miguel Whiting MD - 04/01/2017 Procedure Title: XR FEMUR 2 VW RIGHT*[id number] HISTORY: Pain in right leg radiating to knee . COMPARISON: No relevant comparison. Additional history (none relevant if blank): . FINDINGS: No fracture identified along the right femur. Osteoarthrosis changes are noted at the medial and patellofemoral compartments, relatively advanced at the patellofemoral compartment. Soft tissues unremarkable. IMPRESSION No right femoral fracture. Osteoarthrosis, medial and patellofemoral compartments. Steve Joseph DO DIAGNOSTIC IMAGING O RDERABLES * XR SHOULDER 2+ VW LEFT (11/13/2016 11:46 AM CDT) Only the most recent of2 resultswithin the time period is included. Anatomical Region Laterality Modality Upper Extremity Radiographic Sherman ging 11/13/2016 12:5 7 PM CDT Impressions 11/13/2016 12:57 PM CDT Negative left shoulder series for fracture or malalignment. Mild DJD of left AC joint. Narrative 11/13/2016 12:57 PM CDT X-RAY, LEFT SHOULDER SERIES HISTORY: Left shoulder pain after recent injury TECHNIQUE: 3 views of the left shoulder are submitted. FINDINGS: Normal anatomic alignment of the left glenohumeral joint is present. ??No fracture or focal bone or joint abnormality seen. ?The left AC joint is intact, with mild degenerative narrowing. Soft tissue structures are normal. Procedure Note Cintia Nair MD - 11/13/2016 X-RAY, LEFT SHOULDER SERIES HISTORY: Left shoulder pain after recent injury TECHNIQUE: 3 views of the left shoulder are submitted. FINDINGS: Normal anatomic alignment of the left glenohumeral joint is present. No fracture or focal bone or joint abnormality seen. The left AC joint is intact, with mild degenerative narrowing. Soft tissue structures are normal. IMPRESSION Negative left shoulder series for fracture or malalignment. Mild DJD of left AC joint. Yessi Fatima MD DIAGNOSTIC IMAGING O RDERABLES * (ABNORMAL) CULTURE ANAEROBE+AEROBE (09/14/2016 3:44 PM CDT) Anaerobic Culture Final report [facility] ACCOUNT BILL Result 1 [facility] ACCOUNT BILL Comment:No anaerobic growth in 72 hours. Aerobic Culture Final report(A) [facility] ACCOUNT BILL Result 1 Staphylococcus aureus(A) [facility] ACCOUNT BILL Comment: Heavy growth Based on resistance to penicillin and susceptibility to oxacillin this isolate would be susceptible to: * Penicillinase-stable penicillins; such as: ?Cloxacillin ?Dicloxacillin ?Nafcillin * Beta-lactam/beta-lactamase inhibitor combinations; such as: ?Amoxicillin-clavulanic acid ?Ampicillin-sulbactam * Antistaphylococcal cephems; such as: ?Cefaclor ?Cefuroxime * Antistaphylococcal carbapenems; such as: ?Imipenem ?Meropenem Antimicrobial Susceptibility [facility] ACCOUNT BILL Comment: ? S = Susceptible; I = Intermediate; R = Resistant ? P = Positive; N = Negative ?MICS are expressed in micrograms per mL ?? Antibiotic ? RSLT#1 ?RSLT#2 ?RSLT#3 ?RSLT#4 Ciprofloxacin ?S Clindamycin ?S Erythromycin ? R Gentamicin ? S Levofloxacin ? S Linezolid ?S Moxifloxacin ? S Oxacillin ?S Penicillin ? R Quinupristin/Dalfopristin ?S Rifampin ? S Tetracycline ? S Trimethoprim/Sulfa ? S Vancomycin ? S TISSUE SPECIMEN FROM SKIN / Unknown 09/14/2016 3:44 PM CDT 09/14/2016 Narrative Resulting Agency Comment [facility] [place] [address] ??[facility]ly [facility] [phone] Kellee Velazquez DIAMOND BROKER-SPEECH THERAPIST TECHNICIAN LAB - MICRO BIOLOGY ORDERABLES [facility] ACCOUNT BILL [address] [place] [address] * MAMM SCREENING DIGITAL IMAGE BILAT [id number] (07/09/2016 11:43 AM CDT) Only the most recent of3 resultswithin the time period is included. Anatomical Region Laterality Modality Breast Bilateral Mammography 07/13/2016 9:09 AM CDT Narrative 07/13/2016 9:10 AM CDT Breast composition: Scattered fibroglandular densities Body of report: comparison exam from 07/17/2012 These images were interpreted with the aid of CAD. 3-D tomosynthesis was utilized in the interpretation of this exam. There are no spiculated lesions or areas of architectural distortion. No suspicious calcifications are seen. Compared to the prior exam, there has been no suspicious interval change. BI-RADS assessment category: Category one, negative. Recommendation: Return to annual mammograms, or earlier if clinically indicated. Your patient completed a computer based breast cancer risk assessment survey. Based on the information provided by your patient, the survey results indicate that she is NOT AT INCREASED RISK to develop a breast cancer. Additional quantitative risk model data + patient history details have been scanned as a document/letter in the [facility] EMR (media tab). If there are questions regarding this information or our Cancer Genetics Risk Assessment Program, please do not hesitate to contact [phone]. Diana Pierce DO MAMMO ORDERABLES * CT ABDOMEN WITH AND WITHOUT IV CONTRAST (05/21/2016 2:59 PM CDT) Anatomical Region Laterality Modality Abdomen Computed Tomogra phy 05/21/2016 3:33 PM CDT Impressions 05/21/2016 3:44 PM CDT No sign of suspicious renal mass identified. The right kidney does demonstrate an extrarenal pelvis which may have accounted for the ultrasound findings. Mild splenomegaly. Narrative 05/21/2016 3:44 PM CDT Examination: CT abdomen with and without contrast HISTORY: Abnormal retroperitoneal ultrasound, possible right renal mass There is a CT from 12/02/2009 available for comparison. The ultrasound from 05/14/2016 is available for reference. The patient was injected with 100 cc of Omnipaque 350 IV. The lung bases demonstrates mild bibasilar chronic atelectasis and/or scarring. Lower mediastinal structures appear to be unremarkable. The liver demonstrates no discrete mass. Splenomegaly again noted with the spleen measuring approximately 14 cm in AP dimension and craniocaudal dimension. No mass. The patient is status post cholecystectomy. The pancreas and adrenal glands demonstrate no cystic abnormalities. On the noncontrasted portion of the study there is no abnormal urinary calcifications appreciated. The contrasted images demonstrates an extrarenal pelvis on the right which is unchanged when compared to the prior study. No suspicious mass or hydronephrosis noted. The visualized GI structures demonstrate no significant abnormalities with exception of mild diverticulosis. No abscess or free air. No significant adenopathy. Procedure Note Nick Munoz MD - 05/21/2016 Examination: CT abdomen with and without contrast HISTORY: Abnormal retroperitoneal ultrasound, possible right renal mass There is a CT from 12/02/2009 available for comparison. The ultrasound from 05/14/2016 is available for reference. The patient was injected with 100 cc of Omnipaque 350 IV. The lung bases demonstrates mild bibasilar chronic atelectasis and/or scarring. Lower mediastinal structures appear to be unremarkable. The liver demonstrates no discrete mass. Splenomegaly again noted with the spleen measuring approximately 14 cm in AP dimension and craniocaudal dimension. No mass. The patient is status post cholecystectomy. The pancreas and adrenal glands demonstrate no cystic abnormalities. On the noncontrasted portion of the study there is no abnormal urinary calcifications appreciated. The contrasted images demonstrates an extrarenal pelvis on the right which is unchanged when compared to the prior study. No suspicious mass or hydronephrosis noted. The visualized GI structures demonstrate no significant abnormalities with exception of mild diverticulosis. No abscess or free air. No significant adenopathy. IMPRESSION No sign of suspicious renal mass identified. The right kidney does demonstrate an extrarenal pelvis which may have accounted for the ultrasound findings. Mild splenomegaly. Diana Pierce DO CT ORDERABLES * US RETROPERITONEAL COMPLETE (05/14/2016 8:36 AM CDT) Anatomical Region Laterality Modality Abdomen Ultrasound 05/14/2016 9:29 AM CDT Impressions 05/14/2016 10:17 AM CDT Question soft tissue mass in medial aspect of right kidney. Recommend CT for further evaluation. Otherwise unremarkable exam. Edited by Nikki Hoover on 05/14/2016 9:35 AM Narrative 05/14/2016 10:17 AM CDT EXAM: ??Renal ultrasound HISTORY: Flank pain. Elevated creatinine. COMPARISON: CT abdomen and pelvis dated 12/02/2009. FINDINGS: Transabdominal ultrasound of the kidneys and urinary bladder was performed. Both kidneys are slightly small. The right kidney measures 9.6 x 5.3 x 4.0 cm in size. The left kidney measures 10.3 x 3.5 x 4.0 cm in size. Renal cortices are of normal echogenicity. There is believed to be some cortical scarring in the midportion of the right kidney. There is question of a soft tissue mass involving the medial aspect of the right kidney. It measures approximately [address] with IV contrast is recommended for further evaluation. The left kidney demonstrates no focal abnormality. Urinary bladder is normal in appearance. There are bilateral ureteral jets identified. Procedure Note Dion Knox MD - 05/14/2016 EXAM: Renal ultrasound HISTORY: Flank pain. Elevated creatinine. COMPARISON: CT abdomen and pelvis dated 12/02/2009. FINDINGS: Transabdominal ultrasound of the kidneys and urinary bladder was performed. Both kidneys are slightly small. The right kidney measures 9.6 x 5.3 x 4.0 cm in size. The left kidney measures 10.3 x 3.5 x 4.0 cm in size. Renal cortices are of normal echogenicity. There is believed to be some cortical scarring in the midportion of the right kidney. There is question of a soft tissue mass involving the medial aspect of the right kidney. It measures approximately [address] with IV contrast is recommended for further evaluation. The left kidney demonstrates no focal abnormality. Urinary bladder is normal in appearance. There are bilateral ureteral jets identified. IMPRESSION Question soft tissue mass in medial aspect of right kidney. Recommend CT for further evaluation. Otherwise unremarkable exam. Edited by Nikki Hoover on 05/14/2016 9:35 AM Diana Pierce DO US ORDERABLES * PULMONARY/RESPIRATORY REPORT ORDER (10/16/2014) Trav Bailey MD RESPIRATORY THERAP Y ORDERABLES * XR CHEST PA AND LATERAL (10/08/2014 4:01 PM CDT) Only the most recent of2 resultswithin the time period is included. Anatomical Region Laterality Modality Chest Radiographic Sherman ging 10/08/2014 4:25 PM CDT Impressions 10/08/2014 4:26 PM CDT Chronic lung changes which are progressive, without acute process. Narrative 10/08/2014 4:26 PM CDT Indication: Dyspnea on exertion for 5 years. Findings: 2 views compare July 19, 2011. The upper abdomen is normal. There is cardiomegaly with left ventricular enlargement. Aorta is tortuous. There is no hilar or mediastinal adenopathy. There are no focal lung consolidations. There are no pleural effusions. There are thoracic spine degenerative changes DISH. Procedure Note Juan M Monte MD - 10/08/2014 Indication: Dyspnea on exertion for 5 years. Findings: 2 views compare July 19, 2011. The upper abdomen is normal. There is cardiomegaly with left ventricular enlargement. Aorta is tortuous. There is no hilar or mediastinal adenopathy. There are no focal lung consolidations. There are no pleural effusions. There are thoracic spine degenerative changes DISH. IMPRESSION Chronic lung changes which are progressive, without acute process. Trav Bailey MD DIAGNOSTIC IMAGING ORDERABLES * COMPLETE PFT W/WO BRONCHODILATOR (10/08/2014 12:00 PM CDT) 10/08/2014 12:0 0 PM CDT Narrative Transcriptions Trav Bailey MD - 10/08/2014 4:40 PM CDT [facility] PULMONARY FUNCTION TEST PATIENT NAME: MARIALUISA SCHERER MR#: [id number] ROOM#: CSN: [id number] SEX: F :11/13/1945 REFERRING: AGE: 68 PHYSICIAN: Trav Bailey M.D. DATE OF TEST: 10/08/2014 SPIROMETRY: The FEV1 is mildly reduced with a low-normal FEV1 to FVCratio. There was no significant response to bronchodilators. FLOW VOLUME LOOP: Expiratory flows were reduced at mid and low lungvolumes with a mildly concave loop, which may be normal for the patient's age, ormay be due to mild airflow obstruction. The inspiratory loop is normal inshape. LUNG VOLUMES: Lung volumes are normal. AIRWAY RESISTANCE: The airway resistance is normal, the specific airway resistance is upper normal. DLCO: Mildly reduced, however, is mildly elevated when corrected foralveolar volume. IMPRESSION: Essentially normal pulmonary function test with a mildlyreduced FEV1, FVC, and DLCO, all of unclear significance. There was nosignificant response to bronchodilators. A minimal obstructive ventilatory defectcannot be conclusively ruled out. SUMMARY: The FEV1 is 66% of predicted, improving to 70% of predictedafter bronchodilator. The FVC is 71% of predicted, improving to 76% ofpredicted after bronchodilator. The FEV1 to FVC ratio is 0.73, both pre and post bronchodilator, with a predicted of 0.81, TLC 84% of predicted, RV 101%of predicted. FRC 87% of predicted, DLCO 67% of predicted. DICTATOR: TRAV BAILEY M.D. HEG/MODL #:[id number] Trav Bailey MD RESPIRATORY THERAP Y ORDERABLES Performing Organization Address City/[facility]/ZIP Co de Phone Number [facility] * PULMONARY/RESPIRATORY REPORT ORDER (10/07/2014) Trav Bailey MD RESPIRATORY THERAP Y ORDERABLES * HEMOGLOBIN A1C (09/24/2014 10:44 AM CDT) Hemoglobin A1c 5.5 4.2 - 6.3 % [facility] ACCOUNT BILL Comment:AVERAGE GLUCOSE MG/D L BLOOD 111 mg/dL Whole blood specimen (specimen) BLOOD SPECIMEN WITH EDTA / Unknown 09/24/2014 10:44 AM CDT 09/24/2014 3:00 PM CDT Narrative Resulting Agency Comment [address] ??[facility] [phone] Kamla Keane Allan DIAMOND BROKER-SPEECH THERAPIST TECHNICIAN LAB - CHEMISTR Y ORDERABLES Performing Organization Address City/[facility]/ZIP Co de Phone Number [facility] ACCOUNT BILL * STRESS TEST, PULMONARY COMPLEX (08/07/2014 11:14 PM CDT) Narrative [facility] 08/07/2014 11:14 PM CDT Aristeo Fma MD ? 08/07/2014 11:14 PM PULMONARY EXERCISE PHYSIOLOGY STUDY PATIENT NAME: Marialuisa Scherer ?? ACCT #: Data Unavailable SEX: female ?: ??11/13/1945 REFERRING PHYSICIAN: ??Diana Pierce D.O.; ?? Lenny Zepeda M.D. DATE OF TEST: ?? 08/06/2014 WEIGHT: ?? 209 lbs. / 95 kg. ? HEIGHT: ?? 66 in. / 167 cm. DIAGNOSIS: ??Dyspnea on Exertion, Cardiomyopathy (LVEF has improved from 20 - 30% TO 45 - 50% vs, 2013)., Compensated CHF, Chronic Compensated Diastolic CHF, ??HTN, Hyperlipidemia, CKD, Snoring, Mild MR/TR . CLINICAL Reason for exercise termination: ??Gagging From Oral Mouthpiece RPD Scale (Subjective Dyspnea) 1-10: ??4 EXERCISE TYPE: Diagnostic ?? CYCLE: Yes ??FIO2: ??21% PROTOCOL NAME: Low Ramp WARM-UP: ??0 butler ?? EXERCISE START: ??10 butler INCREMENTS: ??8 butler ??RECOVERY: ??0 butler MECHANICAL Duration (min:sec): ??8:10 ??Max Work (Butler)/METS (ml/kg/min): ??41 / 2.9 CARDIOVASCULAR Max HR (bpm) %per max: 103 / 69% ??Heart Rate Golden: ??47 Max BP (mmHg): ??128 / 84 ?? O2 Pulse: ??10.1 / 96% Resting EKG: ??Normal Sinus Rhythm (NSR); Borderline First Degree AV Block, IVCD, Non-specific ST-T wave Changes in Lateral Leads No significant change vs. 06/19/2009. Exercise EKG: ??Sinus Tachycardia (Submaximal Heart Rate Response); No myocardial ischemia or ectopy. Medication comments: ??Chronic Coreg Use (25 mg po BID). RESPIRATORY PRE-EXERCISE ??POST-EXERCISE ??ACTUAL %PRED ACTUAL %PRED %CHANGE FEV1 (L) 1.54 ?? 63% ??1.61 ??65% ??+4% FEV1% 71% ?67% ? FEF 25-75% 0.96 L ?47% ?0.83 L ?41% ?-13% PRIOR TO TEST FEV1: 2.27 L/ 91% (from 05/2010); ??Today's FEV1 = has decreased 32% vs. this prior Spirometry. BREATHING RESERVE: ??15.3 ??MAX RR (breath/min): ??41 Max VT (L): ??0.78 (rest = 0.398) ??Max VE (L/min): ??37.7 MVV (L): ??53 (calculated) ?? SAO2 (%) Rest: ??95% ?Max Exercise: ??96% Max VEO2: ??33 ?Max VECO2: ??32 VD/VT Rest: ??0.36 ?Max Exercise: ??0.17 METABOLIC/ANAEROBIC THRESHOLD (AT) Max VO2 (ml/min): ??980 ?? %PRED VO2 Max: ??60% Max VO2/kg: ??10.3 Max VCO2 (ml/min): ??907 ?? Max R (VCO2/VO2): ??0.93 AT (ml/min) AT % PRED VO2 Max: ? 575 / 35% SUMMARY: 1. Moderate Large Airway and Moderately Severe Small Airway Obstruction; no significant exercise-induced bronchospasm. 2. Normal Oxygenation and Pulmonary Vascular Response to exercise on Room Air. 3. The R Value = 0.93 suggests a submaximal musculoskeletal effort throughout exercise and at peak exertion, most likely due to severe deconditioning rather than from a voluntary lack of effort. 4. Moderate Reduction in Breathing Golden was noted at peak exertion, suggesting that this patient's signifcant airway obstruction contributed to this patient's reduced capability to exercise. 5. No myocardial ischemia or ectopy was noted throughout exercise and at peak exertion. 6. This patient demonstrated a submaximal hear rate response to exercise, at least in part due to chronic use of po Coreg (25 mg po BID). 7. The O2 Pulse = 10.1 / 96% suggests an excellent Cardiac Index and Stroke Volume response to exercise. 8. ??Anaerobic Threshold (AT) was achieved at only 35% of the maximal predicted O2 Consumption, consistent with severe deconditioning. 9. At peak exertion, the maximal achieved O2 Consumption corrected for kg-body weight = 10.3, suggestive for Severe, Chronic Exertional Debilitation secondary to a moderate reduction in Breathing Golden (due to above bronchospasm), a Beta Sue - induced ?? supression of heart rate response to exercise, ??In addition to severe deconditioning. ? 10. This patient would be eligible for and could benefit from formal, supervised Pulmonary Rehabilitation, along with optimization of airway medication to manage and improve airway function. ?? Aristeo Fam Jr., M.D.,[facility] PULMONARY, CRITICAL CARE, AND SLEEP MEDICINE [place] BOARD OF INTERNAL MEDICINE ? Lenny Zepeda MD PFT ORDERABLES Performing Organization Address City/State/[facility] Co de Phone Number [facility] MED[facility]IST * STRESS TEST WALKING (07/31/2014 10:59 AM CDT) Narrative Rosalie Santos, - 07/31/2014 10:59 AM CDT RT Anila ? 07/31/2014 10:59 AM Pt completed a six minute walk study 07/30/14. Due to EPIC order error, the final results can be found in the media tab and in the 6 min walk flow sheet. Lenny Zepeda MD CARDIAC SERVICES ORD SONU * PATHOLOGY - [facility] (07/17/2014 11:30 AM CDT) Material [facility] INSURANCE BILL Comment: Material submitted: ?. CHEEK ICD-9 [facility] INSURANCE BILL Comment: Clinician provided ICD-9: 238.2 ; Neoplasm of uncertain behavior of skin CLHIST [facility] INSURANCE BILL Comment: Clinical history: ?. FLESH COLORED PAPULE RIGHT CHEEK 8MM DIAMETER R/O BCC F Diagnosis [facility] INSURANCE BILL Comment: Diagnosis: CHEEK: INCOMPLETE BIOPSY OF BASAL CELL CARCINOMA, INVOLVING THE BIOPSY MARGINS. . COMMENT: CLINICAL CORRELATION AND PATIENT FOLLOWUP ARE RECOMMENDED. . . GXA/07/22/2014 Signed [facility] INSURANCE BILL Comment: Electronically signed: ? . Serafin Finnegan MD, Pathologist Grossed [facility] INSURANCE BILL Comment: Gross description: ? . RECEIVED IN FORMALIN LABELED MARIALUISA SCHERER DESIGNATED CHEEK IS A CONDON/YELLOW FRAGMENT OF SKIN MEASURING 0.3 X 0.3 X 0.1 CM. THE MARGIN IS MARKED WITH BLUE INK. IT IS BISECTED AND SUBMITTED ENTIRELY IN A SINGLE CASSETTE. LMS/CRY ICD-9 [facility] INSURANCE BILL Comment: Pathologist provided ICD-9: 173.99 CPT [facility] INSURANCE BILL Comment: CPT ?. [id number] Miscellaneous samples (specimen) INCISIONAL BIOPSY OF LESION OF CHEEK / Unknown 07/17/2014 11:30 AM CDT 07/18/2014 10:31 AM CDT Narrative Resulting Agency Comment [facility] [place] [facility] [address] ??[facility] [phone] Diana Pierce DO LAB - PATHOLOGY/CYTO LOGY ORDERABLES Performing Organization Address [facility] Co de Phone Number [facility] INSURANCE BILL * AUDIOLOGY/TYMPANOMETRY ORDER (10/08/2013) Diana Pierce DO AUDIOLOGY SERVICES O RDERABLES * (ABNORMAL) ALKALINE PHOSPHATASE BLOOD ISOENZYME PANEL (10/03/2013 11:09 AM CDT) Alkaline Phosphatase 149(H) 39 - 117 IU/L [facility] ACCOUNT BILL Alkaline Phosphatase Liver Fraction 70 18 - 85 % [facility] ACCOUNT BILL Alkaline Phosphatase Bone Fraction 30 14 - 68 % [facility] ACCOUNT BILL Alkaline Phosphatase Intestinal Fraction 0 0 - 18 % [facility] ACCOUNT BILL Blood specimen (specimen) BLOOD SPECIMEN / Unknown 10/03/2013 11:09 AM CDT 10/03/2013 5:27 PM CDT Narrative Resulting Agency Comment [facility] [address] ??[facility] [phone] Diana Pierce DO LAB - CHEMISTRY ORDE RABLES Performing Organization Address [facility]/ZIP Co de Phone Number [facility] ACCOUNT BILL * LIPASE BLOOD (10/03/2013 11:09 AM CDT) Only the most recent of3 resultswithin the time period is included. Lipase 22 0 - 59 U/L [facility] A CCOUNT BILL Blood specimen (specimen) BLOOD SPECIMEN / Unknown 10/03/2013 11:09 AM CDT 10/03/2013 5:27 PM CDT Narrative Resulting Agency Comment [facility] [place] [id number] ??[facility] [phone] Diana Pierce DO LAB - CHEMISTRY CHRIS YUNG Performing Organization Address [facility]/ZIP Co de Phone Number [facility] ACCOUNT BILL * AMYLASE BLOOD (10/03/2013 11:09 AM CDT) Only the most recent of3 resultswithin the time period is included. Amylase 37 31 - 124 U/L [facility] ACCOUNT BILL Blood specimen (specimen) BLOOD SPECIMEN / Unknown 10/03/2013 11:09 AM CDT 10/03/2013 5:27 PM CDT Narrative Resulting Agency Comment [facility] [id number] [facility] ??[facility] [phone] Diana Pierce DO LAB - CHEMISTRY CHRIS YUNG Performing Organization Address [facility] Co de Phone Number [facility] ACCOUNT BILL * (ABNORMAL) URINALYSIS - POINT OF CARE (08/22/2013 3:09 PM CDT) Only the most recent of5 resultswithin the time period is included. Clarity UA POCT cloudy Color UA POCT clear Leukocyte UA 3+(A) Negative Nitrite UA POCT neg Negative Urobilinogen UA 0.2 0.1 - 1.0 Protein UA POCT neg Negative pH UA 5.0 5.0 - 8.0 pH units Blood UA neg Negative Specific [place] UA POCT 1.015 1.002 - 1.030 Ketone UA neg Negative Bilirubin UA POCT neg Negative Glucose UA neg Negative Urine specimen (specimen) URINE / Unknown 08/22/2013 3:09 PM CDT Kamla Lemus DIAMOND BROKER-SPEECH THERAPIST TECHNICIAN LAB - POINT OF CARE ORDERABLES * XR THORACIC SPINE 3 VW (10/12/2012 2:56 PM CDT) Anatomical Region Laterality Modality Spine Radiographic Sherman ging 10/13/2012 8:43 AM CDT Impressions 10/13/2012 8:43 AM CDT Multilevel degenerative change but no obvious fracture or subluxation. Recommend clinical correlation ??MRI may be helpful for further evaluation and to assess for occult injury if symptoms persist Narrative 10/13/2012 8:43 AM CDT THORACIC SPINE ??Three views ??were obtained. HISTORY: ??Back Pain. FINDINGS: There is mild osteopenia with minimal scoliosis. There is normal alignment of the thoracic vertebral bodies. No fracture or pathologic subluxation is seen. is multilevel degenerative disc disease with osteophyte formation worse at T8-T9 with slightly more disc space narrowing. The upper thoracic vertebral bodies and disc spaces are less optimally profiled frank The paravertebral stripe appears normal. The posterior ribs appear intact. Procedure Note Baldemar Armas MD - 10/13/2012 THORACIC SPINE Three views were obtained. HISTORY: Back Pain. FINDINGS: There is mild osteopenia with minimal scoliosis. There is normal alignment of the thoracic vertebral bodies. No fracture or pathologic subluxation is seen. is multilevel degenerative disc disease with osteophyte formation worse at T8-T9 with slightly more disc space narrowing. The upper thoracic vertebral bodies and disc spaces are less optimally profiled frank The paravertebral stripe appears normal. The posterior ribs appear intact. IMPRESSION Multilevel degenerative change but no obvious fracture or subluxation. Recommend clinical correlation MRI may be helpful for further evaluation and to assess for occult injury if symptoms persist Diana Pierce DO DIAGNOSTIC IMAGING O RDERABLES * US BREAST UNILATERAL RIGHT (07/19/2012 3:25 PM CDT) Anatomical Region Laterality Modality Breast Right Ultrasound 07/19/2012 3:32 PM CDT Impressions 07/19/2012 3:32 PM CDT Small 7-8 mm cyst in the retroareolar right breast corresponding to the mammographic abnormality. No sonographic abnormality to suggest malignancy. BIRADS category 2. Benign. RECOMMENDATIONS: Routine mammograms in one year. The findings were discussed with the patient following the examination. Narrative 07/19/2012 3:32 PM CDT Ultrasound right breast: HISTORY: Abnormality on a recent study. Further evaluation requested. Ultrasound evaluation of the retroareolar right breast was performed on 07/19/2012 and compared to prior studies including the recent screening mammogram on 07/17/2012 and an earlier screening mammogram on 01/24/2008. There is a small 7-8 mm cyst in the retroareolar aspect of the right breast which corresponds to the mammographic density. No solid mass is identified to suggest malignancy. Procedure Note Mian Montanez MD - 07/19/2012 Ultrasound right breast: HISTORY: Abnormality on a recent study. Further evaluation requested. Ultrasound evaluation of the retroareolar right breast was performed on 07/19/2012 and compared to prior studies including the recent screening mammogram on 07/17/2012 and an earlier screening mammogram on 01/24/2008. There is a small 7-8 mm cyst in the retroareolar aspect of the right breast which corresponds to the mammographic density. No solid mass is identified to suggest malignancy. IMPRESSION Small 7-8 mm cyst in the retroareolar right breast corresponding to the mammographic abnormality. No sonographic abnormality to suggest malignancy. BIRADS category 2. Benign. RECOMMENDATIONS: Routine mammograms in one year. The findings were discussed with the patient following the examination. Diana Pierce DO US ORDERABLES * DEXA BONE DENSITY 2 SITES (07/17/2012 1:54 PM CDT) Only the most recent of2 resultswithin the time period is included. Anatomical Region Laterality Modality Mammography 07/17/2012 3:55 [...] study (prior T score -1.1). Kamla Lemus APRNKARSON DEXA ORDERABLE S * LIPID PROFILE (06/17/2012 5:00 PM CDT) Only the most recent of6 resultswithin the time period is included. [facility] Signature Cholesterol 190 125 - 200 mg/dL [facility] Comment: Test Performed at: [facility] [place] [id number] [place] [address] ??[phone] SCOTTY GORE DO,MPH HDL Cholesterol 50 > OR = 46 mg/dL [facility] Triglycerides 67 <150 mg/dL [facility] LDL Calculated 127 <130 mg/dL (calc) [facility] Comment: Desirable range <100 mg/dL for patients with CHD or diabetes and <70 mg/dL for diabetic patients with known heart disease. CHOL/HDLC RATIO 3.8 < OR = 5.0 (calc) [facility] Non HDL Cholesterol 140 mg/dL (calc) [facility] Comment: Target for non-HDL cholesterol is 30 mg/dL higher than LDL cholesterol target. 06/15/2012 5:5 7 AM CDT Kamla JAMA LAB - CHEMISTR Y ORDERABLES [facility] [address] [place] [address] * URIC ACID BLOOD (01/19/2012 1:00 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) Pathologist [facility] Uric Acid 7.0 2.5 - 7.0 mg/dL [facility] Comment: Therapeutic target for gout patients: <6.0 mg/dL ?? Test Performed at: [facility] [address] ??[phone] SCOTTY GORE DO,MPH Blood specimen (specimen) BLOOD SPECIMEN / Unknown 01/19/2012 4:22 AM SPRAY GUN REPAIRER HELPER Diana Pierce DO LAB - CHEMISTRY ORDKathy YUNG Performing Organization Address [facility] [place] [address] * (ABNORMAL) C-REACTIVE PROTEIN (01/19/2012 1:00 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) [facility] C-Reactive Protein 1.72(H) <0.80 mg/dL [facility] Comment: Please be advised that patients taking Carboxypenicillins may exhibit falsely decreased C-Reactive Protein levels due to an analytical interference in this assay. NO COLLECTION DATE RECEIVED. WE HAVE USED THE DATE THE SPECIMEN WAS RECEIVED BY THIS LABORATORY THE COLLECTION DATE. IF THIS IS INCORRECT, PLEASE CONTACT CLIENT SERVICES. PHONE NUMBER: [phone] Test Performed at: [facility] [address] ??[phone] SCOTTY GORE DO,MPH Blood specimen (specimen) BLOOD SPECIMEN / Unknown 01/19/2012 4:22 AM SPRAY GUN REPAIRER HELPER Diana Pierce DO LAB - CHEMISTRY ORDE AGA Performing Organization Address [facility] [place] [address] * (ABNORMAL) SED RATE AUTO (ESR) (01/19/2012 1:00 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) Only the most recent of3 resultswithin the time period is included. [facility] Erythrocyte Sedimentation Rate Westergren 49(H) < OR = 30 mm/h [facility] Comment: Test Performed at: [facility] [place] [address] [place], [place] ??[phone] SCOTTY GORE DO,MPH Blood specimen (specimen) BLOOD SPECIMEN / Unknown 01/19/2012 4:22 AM SPRAY GUN REPAIRER HELPER Diana Pierce DO LAB - HEMATOLOGY ORD ERABLES Performing Organization Address City/[facility] Co de Phone Number [facility] [address] [place] [address] * XR HAND 3+ VW RIGHT (01/10/2012 3:46 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) Anatomical Region Laterality Modality Wrist / Hand Radiographic Sherman ging 01/10/2012 4:50 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 Impressions 01/10/2012 4:50 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 Mild arthritic change otherwise negative Narrative 01/10/2012 4:50 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 HISTORY: ??Pain FINDINGS: There is mild osteopenia. The osseous structures are unremarkable. No fracture or dislocation is seen. 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 There is also probably some mild narrowing in the radial midcarpal joint. ?? Procedure Note Baldemar Armas MD - 01/10/2012 Three views were obtained. HISTORY: Pain FINDINGS: There is mild osteopenia. The osseous structures are unremarkable. No fracture or dislocation is seen. 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 There is also probably some mild narrowing in the radial midcarpal joint. IMPRESSION Mild arthritic change otherwise negative Martha Pugh MD DIAGNOSTIC SHERMAN GING ORDERABLES * ENDOSCOPY, COLON, DIAGNOSTIC (10/13/2011 6:21 PM CDT) Narrative Transcriptions Jonny Aguilar MD - 10/13/2011 6:21 PM CDT Jonny Aguilar MD GI PROCEDURE ORDERA BLES Performing Organization Address City/[facility]/ZIP Co de Phone Number [facility] ENDOSCOPY * GROSS + MICRO EXAM (10/13/2011 8:03 AM CDT) Only the most recent of2 resultswithin the time period is included. Pathologist [facility] Pre-Op Diagnosis High risk colon cancer screening, PH polyps, hx diverticulitis [facility] Post-Op Diagnosis Normal TI, diverticula sigmoid and descending, mild erythemaous sigmoid mucosa [facility] Clinical Findings As above [facility] Gross Description [facility] Comment: One portion received in formalin labeled sigmoid colon biopsy consists of two condon mucosal fragments each 4 mm greatest dimension, submitted in toto. BLOCK: A - Sigmoid colon biopsy, levels ME/dak Grossed By Jonny Rees M.D. [facility] Microscopic Examination [facility] Comment: Sections show fragments of colonic mucosa. Surface epithelium is partly denuded without erosive inflammation. Glands are tubular, uniformly distributed in lamina propria that contains mostly usual inflammatory cells. Focally, increased numbers of granulocytes are seen that infiltrate gland epithelium. Cryptitis, crypt abscesses, granulomas, ischemic injury or inflammatory pseudomembranes are not evident. Given the presence of sigmoid diverticula, diverticulitis associated colitis is a possibility although the pattern is entirely nonspecific. (JOSE MANUEL)na Diagnosis [facility] Comment: Colon, sigmoid, endoscopic biopsy: ? Acute colitis, focal, nonspecific ? Please see above (JOSE MANUEL)meghann 10/14/11 Read by Jonny Rees M.D. [facility] Released by JONNY REES [facility] Performed By Count Includes [facility] Pathologists [facility] at [address] [facility] SIGMOID COLON BIOPSY SPECIMEN / Unknown 10/13/2011 8:03 AM CDT 10/13/2011 11:59 AM CDT Jonny Aguilar MD LAB - PATHOLOGY/CYT OLOGY ORDERABLES [facility] [address] [place] [address] * (ABNORMAL) GENERAL HEALTH PANEL (08/13/2010 9:32 AM CDT) Pathologist [facility] Glucose 100(H) 65 - 99 mg/dL [facility] ACCOUNT BILL BUN 20 8 - 27 mg/dL [facility] ACCOUNT BILL Creatinine 1.27(H) 0.57 - 1.00 mg/dL [facility] ACCOUNT BILL eGFR by MDRD 44(L) >59- mL/min/1.7 3 [facility] ACCOUNT BILL eGFR by MDRD 51(L) >59- mL/min/1.7 3 [facility] ACCOUNT BILL Comment: Note: A persistent eGFR <60 mL/min/1.73 m2 (3 months or more) may indicate chronic kidney disease. An eGFR >59 mL/min/1.73 m2 with an elevated urine protein also may indicate chronic kidney disease. Calculated using CKD-EPI formula. BUN/Creatinine Ratio 16 - [facility] ACCOUNT BILL Sodium 140 135 - 145 mmol/L [facility] ACCOUNT BILL Potassium 4.6 3.5 - 5.2 mmol/L [facility] ACCOUNT BILL Chloride 103 97 - 108 mmol/L [facility] ACCOUNT BILL CO2 24 20 - 32 mmol/L [facility] ACCOUNT BILL Calcium 9.5 8.6 - 10.2 mg/dL [facility] ACCOUNT BILL Protein Total 7.8 6.0 - 8.5 g/dL [facility] ACCOUNT BILL Albumin 3.7 3.6 - 4.8 g/dL [facility] ACCOUNT BILL Globulin Total 4.1 1.5 - 4.5 g/dL [facility] ACCOUNT BILL Albumin/Globulin Ratio 0.9(L) 1.1 - 2.5 [facility] ACCOUNT BILL Bilirubin Total 0.4 0.0 - 1.2 mg/dL [facility] ACCOUNT BILL Alkaline Phosphatase 223(H) 25 - 165 IU/L [facility] ACCOUNT BILL AST 27 0 - 40 IU/L [facility] ACCOUNT BILL ALT 39 0 - 40 IU/L [facility] ACCOUNT BILL TSH 1.800 0.450 - 4.500 uIU/mL [facility] ACCOUNT BILL WBC 8.8 4.0 - 10.5 x10E3/uL [facility] ACCOUNT BILL RBC 4.19 3.80 - 5.10 x10E6/uL [facility] ACCOUNT BILL Hemoglobin 12.5 11.5 - 15.0 g/dL [facility] ACCOUNT BILL Hematocrit 38.5 34.0 - 44.0 % [facility] ACCOUNT BILL MCV 92 80 - 98 fL [facility] ACCOUNT BILL MCH 29.8 27.0 - 34.0 pg [facility] ACCOUNT BILL MCHC 32.5 32.0 - 36.0 g/dL [facility] ACCOUNT BILL RDW 13.7 11.7 - 15.0 % [facility] ACCOUNT BILL Platelet Count 327 140 - 415 x10E3/uL [facility] ACCOUNT BILL Granulocytes % 56 40 - 74 % [facility] ACCOUNT BILL Lymphocytes % 30 14 - 46 % [facility] ACCOUNT B[facility] Monocytes % 6 4 - 13 % [facility] ACCOUNT BILL Eosinophils % 7 0 - 7 % [facility] ACCOUNT BILL Basophils % 1 0 - 3 % [facility] ACCOUNT BILL Granulocytes Absolute 4.9 1.8 - 7.8 x10E3/uL [facility] ACCOUNT BILL Lymphocytes Absolute 2.6 0.7 - 4.5 x10E3/uL [facility] ACCOUNT BILL Monocytes Absolute 0.6 0.1 - 1.0 x10E3/uL [facility] ACCOUNT BILL Eosinophils Absolute 0.6(H) 0.0 - 0.4 x10E3/uL [facility] ACCOUNT BILL Basophils Absolute 0.1 0.0 - 0.2 x10E3/uL [facility] ACCOUNT BILL Immature Granulocytes 0 0 - 2 % [facility] ACCOUNT BILL Comment:Please note refere nce interval change Immature Granulocytes Absolute 0.0 0.0 - 0.1 x10E3/uL [facility] ACCOUNT BILL BLOOD SPECIMEN / Unknown 08/13/2010 9:32 AM CDT 08/13/2010 10:03 PM CDT Narrative Resulting Agency Comment [facility] [place] [id number] Diana Pierce DO LAB - CHEMISTRY CHRIS YUNG [facility] Organization Address City/State/ZIP Co de Phone Number [facility] ACCOUNT BILL * IN CARDIAC STRESS TST,COMPLETE, IN PLACE NEEDLE IN VEIN, IN THER/PROPH/DIAG INJ, IV PUSH, IN TC-99MTETROFOSMIN DX - STUDY DOSE, ADENOSINE 30 MG INJ, IN MYOCARDIAL IMAGE MULTPLE,SPECT, IN HEART FUNCTION, (ADD-ON), IN HEART WALL MOTION (ADD-ON) (06/02/2010 5:34 PM CDT) Only the most recent of2 resultswithin the time period is included. Narrative Aleksandar Chairez MD - 06/02/2010 5:34 PM CDT PATIENT INFORMATION: Name: ? Marialuisa Scherer : ?11/13/1945 Age: ?64 y.o. Height/Weight: ? There were no vitals taken for this visit. Sex: ? female NUCLEAR STRESS TEST Date: ? 06/02/2010 Adenosine / Walking REASON FOR PERFORMING TEST: ?HTN, SOB, Non-ischemic cardiomyopathy, and LBBB RISK FACTORS: ? Hypertension: ??Positive Hyper lipids: ? Negative Diabetes: ? Negative ?? Smoking History: ?? History Smoking status ? ? Never Smoker ?? Smokeless tobacco ? ? Never Used Family History: ?Strong family history CAD: ?? Positive Previous NH: ?? Negative Post PTCA: ?? Negative ? Resting EKG: ?? SR, Anterior Lateral NH, Age Undetermined ADENOSINE BLOOD PRESSURE HEART RATE COMMENTS / SYMPTOMS PRETEST ??UPRIGHT 160/100 64 ? 1 MINUTE 140/90 97 Light-headed, SOB and some pain in chest 2 MINUTE 150/100 96 ?? 3 MINUTE 130/90 104 ventricular premature beats 4 MINUTE 130/98 104 ?? TEST TERMINATED ?? REASON FOR TERMINATION ADENOSINE ??53 mg INFUSION COMPLETE BLOOD PRESSURE HEART RATE COMMENTS / SYMPTOMS RECOVERY ? 1 MINUTE 140/100 76 ?? 2 MINUTE ? 3 MINUTE 130/100 75 ?? 4 MINUTE ? 5 MINUTE ? 6 MINUTE 140/110 75 ?? 7 MINUTE ? 8 MINUTE ? 9 MINUTE ? RESULTS: ?? non-diagnostic Jhonatan Stallings MD, FACC ?Electronically signed: 06/02/2010 Myocardial Perfusion Imaging (Rest/Stress/SPECT/Gated Imaging and Ejection Fraction Measurement) Radiopharmaceuticals used: ??Tc-99m tetrofosmin IV 10.0 mCi (rest) and 35.0 mCi (stress) Indications: ??HTN, SOB, Non-ischemic cardiomyopathy, and LBBB Technique: ??Standard myocardial perfusion images were obtained after resting intravenous injection of Tc-99m tetrofosmin IV. ??Subsequently, an adenosine vasodilator stress test was performed under the supervision of the tapper supervisor. Adenosine was infused over a four minute period during low level exercise. ??After two minutes of infusion, Tc-99m tetrofosmin was injected intravenously, and standard myocardial perfusion images were obtained. Findings: ??Image quality is technically adequate with minimal patient motion.There is mildly reduced tracer uptake in the inferior wall on both rest and post-stress images more consistent with inferior wall attenuation artifact. ??Gated SPECT images demonstrate normal left ventricular contractility and wall thickening. ??Post-exercise left ventricular volume is normal. ??The post-stress left ventricular ejection fraction is within normal limits at 53 %. Opinion: ?? 1. ??Myocardial Perfusion: ??Normal rest and stress images. Inferior wall attenuation artifact. 2. ??Left ventricle: ??Normal size, wall thickness and systolic function (post-stress ejection fraction is 53 %). Reading Physician: ? Moo Chairez MD, [facility] ?? Electronically signed: 06/02/2010 Myocardial Perfusion Imaging has an overall predictive accuracy of 85-90%. The sensitivity of the test is significantly diminished with submaximal stress. Procedure Note Ness Callejas - 06/02/2010 8:16 AM CDT PATIENT INFORMATION: Name: Marialuisa Scherer : 11/13/1945 Age: 64 y.o. Height/Weight: There were no vitals taken for this visit. Sex: female NUCLEAR STRESS TEST Date: 06/02/2010 Adenosine / Walking REASON FOR PERFORMING TEST: HTN, SOB, Non-ischemic cardiomyopathy, andLBBB RISK FACTORS: Hypertension: Positive Hyper lipids: Negative Diabetes: Negative Smoking History: History Smoking status ? ? Never Smoker Smokeless tobacco ? ? Never Used Family History: Strong family history CAD: Positive Previous NH: Negative Post PTCA: Negative Resting EKG: SR, Anterior Lateral NH, Age Undetermined ADENOSINE BLOOD PRESSURE HEART RATE COMMENTS / SYMPTOMS PRETEST UPRIGHT 160/100 64 1 MINUTE 140/90 97 Light-headed, SOB and some pain in chest 2 MINUTE 150/100 96 3 MINUTE 130/90 104 ventricular premature beats 4 MINUTE 130/98 104 TEST TERMINATED REASON FOR TERMINATION ADENOSINE 53 mg INFUSION COMPLETE BLOOD PRESSURE HEART RATE COMMENTS / SYMPTOMS RECOVERY 1 MINUTE 140/100 76 2 MINUTE 3 MINUTE 130/100 75 4 MINUTE 5 MINUTE 6 MINUTE 140/110 75 7 MINUTE 8 MINUTE 9 MINUTE RESULTS: non-diagnostic Jhonatan Stallings MD, [facility] Electronicallysigned: 06/02/2010 Myocardial Perfusion Imaging (Rest/Stress/SPECT/Gated Imaging and Ejection Fraction Measurement) Radiopharmaceuticals used: Tc-99m tetrofosmin IV 10.0 mCi (rest) and 35.0mCi (stress) Indications: HTN, SOB, Non-ischemic cardiomyopathy, and LBBB Technique: Standard myocardial perfusion images were obtained afterresting intravenous injection of Tc-99m tetrofosmin IV. Subsequently, anadenosine vasodilator stress test was performed under the supervision ofthe tapper supervisor. Adenosine was infused over a four minute period duringlow level exercise. After two minutes of infusion, Tc-99m tetrofosmin wasinjected intravenously, and standard myocardial perfusion images wereobtained. Findings: Image quality is technically adequate with minimal patientmotion.There is mildly reduced tracer uptake in the inferior wall on bothrest and post-stress images more consistent with inferior wall attenuationartifact. Gated SPECT images demonstrate normal left ventricularcontractility and wall thickening. Post- exercise left ventricular volumeis normal. The post-stress left ventricular ejection fraction is withinnormal limits at 53 %. Opinion: 1. Myocardial Perfusion: Normal rest and stress images. Inferior wallattenuation artifact. 2. Left ventricle: Normal size, wall thickness and systolic function(post-stress ejection fraction is 53 %). Reading Physician: Moo Chairez MD, [facility] Electronicallysigned: 06/02/2010 Myocardial Perfusion Imaging has an overall predictive accuracy of 85-90%.The sensitivity of the test is significantly diminished with submaximalstress. Lenny Zepeda MD CARDIAC SERVICES ORD ERABLES * COMPLETE PFT W/WO BRONCHODILATOR (05/21/2010) 05/21/2010 Narrative Procedure Note Mukul Nguyen MD - 05/21/2010 1:10 PM CDT [facility] Pulmonary Function Test PATIENT NAME:MARIALUISA SCHERER MR#:[id number] ROOM#: SEX:F DATE OF TEST:05/21/2010DOB:11/13/1945 DATA SUMMARY: 1.Spirometry reveals an FEV1/FVC ratio of 71. The patient's best FEV1 is2.27 or 91%. The patient's best FVC is 3.2% to 102%. A significantresponse was not noted to a single dose bronchodilator. 2.Lung volumesshow a total lung capacity of 5.07 or 97%, residual volume is 1.84 or 90%,functional residual capacity is 2.63 or 102%. 3.Diffusion studies show aDLCO of 18.4% or 76%. 4.Flow volume loop show a mild decrease in expiratory flows at the lowerlung volumes. Inspiratory loop is normal in shape. IMPRESSION: This study demonstrates evidence of a marginal obstructivedefect with an FEV1 of 2.27 or 91%. A bronchodilator response was notnoted. Lung volumes and diffusion studies are essentially unremarkable. DICTATOR: MUKUL NGUYEN M.D. MSD/MedQ #:[id number] Lenny Zepeda MD RESPIRATORY THERAPY ORDERABLES [facility] * CT ABDOMEN AND PELVIS WITH IV CONTRAST (12/02/2009 2:25 PM CDT) Anatomical Region Laterality Modality Abdomen, Pelvis Computed Tomogra phy 12/02/2009 2:52 PM CDT Impressions 12/02/2009 2:52 PM CDT Findings consistent with acute diverticulitis diffusely involving the sigmoid colon. A minimal amount of free fluid is noted with no focal fluid collection identified to suggest a diverticular abscess. A few borderline prominent lymph nodes are seen in the left lower quadrant. Colonic diverticulosis is seen elsewhere, more notably in the sigmoid colon. Cholecystectomy. Mild splenomegaly with scattered calcified granulomas. Mild diffuse fatty infiltration of the pancreas. Several small subcentimeter renal cysts on the right with mild cortical scarring involving both kidneys. Chronic changes of the lungs with scattered areas of atelectasis and/or fibrosis. No other abnormality identified. The findings were discussed with Dr. Pierce on 12/02/2009 at 1500 hours. Narrative 12/02/2009 2:[address] abdomen and pelvis: HISTORY: Generalized pain, more so in the lower abdomen and/or pelvis, slightly more so on the left, for the past week. Prior cholecystectomy. History of diverticulitis. CT examination of the abdomen and pelvis was performed on 12/02/2009 following oral and IV contrast. Comparison is made to an ultrasound right upper quadrant study on 11/21/2007. There are chronic changes of the lungs with scattered areas of atelectasis and/or fibrosis. The visualized lungs are otherwise essentially clear. Abdominal findings: Surgical clips related to a cholecystectomy are present. There is mild splenomegaly with scattered calcified granulomas. Mild diffuse fatty infiltration of the pancreas is present. A several small subcentimeter renal cysts are noted on the right with mild cortical scarring involving both kidneys. Otherwise, the liver, spleen, pancreas, adrenal glands and kidneys are unremarkable. No obstructing urinary stone or hydronephrosis is seen. No aneurysm or dissection is identified. There is moderate diffuse wall thickening involving the sigmoid colon with inflammatory changes of the surrounding fat consistent with acute diverticulitis. A minimal amount of free fluid is noted with no focal fluid collection identified to suggest a diverticular abscess. A few borderline prominent lymph nodes are seen in the left lower quadrant. Colonic diverticulosis is seen elsewhere, more notably in the sigmoid colon.The bowel loops show no obstruction or inflammation elsewhere. No focal soft tissue mass or enlarged adenopathy is seen elsewhere in the abdomen. Pelvic findings: The urinary bladder is nearly completely collapsed but otherwise unremarkable. The uterus is within normal limits for the patient's age. No soft tissue mass or enlarged adenopathy is seen elsewhere in the pelvis. Procedure Note Mian Montanez MD - 12/02/2009 CT abdomen and pelvis: HISTORY: Generalized pain, more so in the lower abdomen and/or pelvis, slightly more so on the left, for the past week. Prior cholecystectomy. History of diverticulitis. CT examination of the abdomen and pelvis was performed on 12/02/2009 following oral and IV contrast. Comparison is made to an ultrasound right upper quadrant study on 11/21/2007. There are chronic changes of the lungs with scattered areas of atelectasis and/or fibrosis. The visualized lungs are otherwise essentially clear. Abdominal findings: Surgical clips related to a cholecystectomy are present. There is mild splenomegaly with scattered calcified granulomas. Mild diffuse fatty infiltration of the pancreas is present. A several small subcentimeter renal cysts are noted on the right with mild cortical scarring involving both kidneys. Otherwise, the liver, spleen, pancreas, adrenal glands and kidneys are unremarkable. No obstructing urinary stone or hydronephrosis is seen. No aneurysm or dissection is identified. There is moderate diffuse wall thickening involving the sigmoid colon with inflammatory changes of the surrounding fat consistent with acute diverticulitis. A minimal amount of free fluid is noted with no focal fluid collection identified to suggest a diverticular abscess. A few borderline prominent lymph nodes are seen in the left lower quadrant. Colonic diverticulosis is seen elsewhere, more notably in the sigmoid colon.The bowel loops show no obstruction or inflammation elsewhere. No focal soft tissue mass or enlarged adenopathy is seen elsewhere in the abdomen. Pelvic findings: The urinary bladder is nearly completely collapsed but otherwise unremarkable. The uterus is within normal limits for the patient's age. No soft tissue mass or enlarged adenopathy is seen elsewhere in the pelvis. IMPRESSION Findings consistent with acute diverticulitis diffusely involving the sigmoid colon. A minimal amount of free fluid is noted with no focal fluid collection identified to suggest a diverticular abscess. A few borderline prominent lymph nodes are seen in the left lower quadrant. Colonic diverticulosis is seen elsewhere, more notably in the sigmoid colon. Cholecystectomy. Mild splenomegaly with scattered calcified granulomas. Mild diffuse fatty infiltration of the pancreas. Several small subcentimeter renal cysts on the right with mild cortical scarring involving both kidneys. Chronic changes of the lungs with scattered areas of atelectasis and/or fibrosis. No other abnormality identified. The findings were discussed with Dr. Pierce on 12/02/2009 at 1500 hours. Diana Pierce DO CT ORDERABLES * CARDIAC MUGA SCAN AT [facility] OUTPT LOCATION (06/19/2009 1:29 PM CDT) Lenny Zepeda MD NM ORDERABLES * IN ECG MONIT/REPRT UP TO 48 HRS (05/02/2009 8:17 AM CDT) Only the most recent of3 resultswithin the time period is included. Narrative NONSSM RESULT SCAN - 05/02/2009 8:17 AM CDT Patient Information Patient Name: ??Marialuisa Scherer Gender: ??female Height/Weight: ?? Duration: ??23:58 Artifact: ?? Hookup Date: ?? 04/29/09 Indications: ??LBBB, abnormal EKG Holter Report Summary Total QRS Complexes: 61135 ? Heart Rate: ?? Ventricular Ectopics: ? 281 ? min: ?43 bpm Supraventricular Ectopics: ??160 ?max: ??105 bpm ? avg: ?66 bpm Paced Beats: ?? 0 ? Pause(s): ?0 ? Longest: ?0 Ventricular Events Isolateds: ??281 In Bigeminal Cycles: ?? 3 Couplets: ??1 Runs: ??0 Supraventricular Events Isolateds: ??160 Couplets: ??0 Runs: ??1 Interpretation 1. The patient was monitored for 23 hours and 58 minutes. 2. The rhythm was sinus with heart rates ranging from 43-105bpm. The average heart rate was 66bpm. 3. The P-R intervals were within normal limits. The QRS complexes suggested an intraventricular conduction delay. 4. There were 281 isolated PVC's, 1 couplets, and 3 in bigeminal patterns. 5. There were 160 isolated PAC's, ??and 1 run. 6. The patient reported one episode of feeling short of breath, and one episode of dizziness. Both of these episodes corresponded to normal sinus rhythm. Lenny Zepeda MD, [facility] Procedure Note Cintia Barraza - 05/02/2009 8:16 AM CDT Patient Information Patient Name: Marialuisa Scherer Gender: female Height/Weight: Duration: 23:58 Artifact: Hookup Date: 04/29/09 Indications: LBBB, abnormal EKG Holter Report Summary Total QRS Complexes: 66921 HeartRate: Ventricular Ectopics: 281min: 43 bpm Supraventricular Ectopics: 160 max:105 bpm av bpm Paced Beats: 0 Pause(s): 0 Longest: 0 Ventricular Events Isolateds: 281 In Bigeminal Cycles: 3 Couplets: 1 Runs: 0 Supraventricular Events Isolateds: 160 Couplets: 0 Runs: 1 Interpretation 1. The patient was monitored for 23 hours and 58 minutes. 2. The rhythm was sinus with heart rates ranging from 43-105bpm. Theaverage heart rate was 66bpm. 3. The P-R intervals were within normal limits. The QRS complexessuggested an intraventricular conduction delay. 4. There were 281 isolated PVC's, 1 couplets, and 3 in bigeminalpatterns. 5. There were 160 isolated PAC's, and 1 run. 6. The patient reported one episode of feeling short of breath, and oneepisode of dizziness. Both of these episodes corresponded to normal sinusrhythm. Lenny Zepeda MD, FACC Lenny Zepeda MD CARDIAC SERVICES ORD SONU NONSSM RESULT SCAN * CARDIAC PROCEDURE ORDER (12/25/2008) Only the most recent of2 resultswithin the time period is included. Lenny Zepeda MD CARDIAC SERVICES ORD SONU * CA 125 BLOOD (10/28/2008 4:26 PM CDT) CA 125 14.8 0.0 - 35.0 U/mL [facility] ACCOUNT BILL Comment: Ailin ICMA methodology ? . Effective November 04, 2008, CA-125 will be changing to the Adriana ??ECLIA methodology. The reference interval will be changing to: ?0.0 ??- 34.0 ??Rebaselining will be offered for 90 days using panel [id number]. ??Available from 10/28/08 - 01/27/09. The second result, provided ??by the [employer] Solar ICMA methodology will be provided at no charge. 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 TECHNIQUE: Mediolateral, mediolateral oblique and cone compression views of the left breast were obtained in craniocaudal and mediolateral oblique projection. FINDINGS: The previously noted small asymmetric density represents asymmetric breast tissue. On coned compression views the density is faintly seen. Procedure Note Jennifer Bai MD / Dariela Alan () - 02/01/2008 Direct diagnostic unilateral mammogram additional views of the left breast HISTORY: Small asymmetric density inferiorly in the left breast . TECHNIQUE: Mediolateral, mediolateral oblique and cone compression views of the left breast were obtained in craniocaudal and mediolateral oblique projection. FINDINGS: The previously noted small asymmetric density represents asymmetric breast tissue. On coned compression views the density is faintly seen. IMPRESSION BI-RADS 2: Benign Recommendation: Return to annual mammography examination or earlier if clinically indicated. 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 Specimen Adequacy [facility] INSURANCE BILL Comment: Satisfactory for evaluation. ??Endocervical and/or squamous metaplastic cells (endocervical component) are present. [facility] INSURANCE BILL Clinician Provided ICD9 [facility] INSURANCE BILL Comment: V72.31 ; Routine gynecological examination 616.10 ; Unspecified vaginitis and vulvovaginitis V76.10 ; Unspecified breast screening V82.81 ; Special screening for osteoporosis Performed by [facility] INSURANCE BILL Comment:Kiana Vazquez [facility] otechnologist ([facility]) Comment . [facility] INSURANCE BILL Note [facility] INSURANCE BILL Comment: The Pap smear is a screening test designed to aid in the detection of premalignant and malignant conditions of the uterine cervix. ??It is not a diagnostic procedure and should not be used as the sole means of detecting cervical cancer. ??Both false-positive and false-negative reports do occur. ? . Reflex [facility] INSURANCE BILL Comment: The HPV DNA reflex criteria were not met with this specimen result therefore, no HPV testing was performed. ? . MICROSCOPIC CYTOLOGIC EXAMINATION OF SMEAR OF SPECIMEN FROM FEMALE GENITAL TRACT PREPARED USING PAPANICOLAOU TECHNIQUE / Unknown 12/26/2007 11:50 AM SPRAY GUN REPAIRER HELPER 12/27/2007 6:46 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 Narrative Resulting Agency Comment [facility] [address] [place] [phone] Keyona Fenton MD LAB - PATHOLOGY/CYTO LOGY ORDERABLES [facility] INSURANCE BILL * US ABDOMEN LIMITED (11/16/2007 12:45 PM CDT) Anatomical Region Laterality Modality Abdomen Other 11/16/2007 12:4 5 PM CDT Narrative 11/17/2007 12:14 PM CDT Ultrasound, right upper quadrant Indication- Midepigastric pain, nausea, previous cholecystectomy Findings- Liver is normal in size, shape and echotexture. There is no biliary dilatation. The common bile duct measures 4 mm which is normal. The visualized portions of the pancreas are unremarkable. The right kidney measures 9.2 x 4.6 x 4.9 cm in size. There is a 1 cm round echogenic area in the ??anterior cortex of right kidney this may represent fat in the prominent lobulation due to chronic scarring ??of right kidney. The study is reviewed with MRCP done on 06/06/2006 There is no upper abdominal ascites. Impression- 1. No biliary obstruction. ? Reading Radiologist- JENNIFER BAI MD - ? Releasing Radiologist- JENNIFER BAI MD - ? Released Date Time- 11/17/07 1214 ? Oil Gas And Pipe Tester- KATIE - ? ADM- DIANA PIERCE ? ATT- DIANA PIERCE REF- DIANA PIERCE ? CON- PCP- DIANA PIERCE ? SCP- Procedure Note Jennifer Bai MD - 11/17/2007 Ultrasound, right upper quadrant Indication- Midepigastric pain, nausea, previous cholecystectomy Findings- Liver is normal in size, shape and echotexture. There is no biliary dilatation. The common bile duct measures 4 mm which is normal. The visualized portions of the pancreas are unremarkable. The right kidney measures 9.2 x 4.6 x 4.9 cm in size. There is a 1 cm round echogenic area in the anterior cortex of right kidney this may represent fat in the prominent lobulation due to chronic scarring of right kidney. The study is reviewed with MRCP done on 06/06/2006 There is no upper abdominal ascites. Impression- 1. No biliary obstruction. Reading Radiologist- JENNIFER BAI MD - Releasing Radiologist- JENNIFER BAI MD - Released Date Time- 11/17/07 1214 Oil Gas And Pipe Tester- KATIE - - DIANA PIERCE ATT- CHIARA,DIANA Corbett REF- CHIARA,DIANA Corbett CON- PCP- CHIARA,DIANA Corbett SCP- Diana Pierce DO US ORDERABLES * T3 FREE (07/28/2007 11:41 AM CDT) T3 Free 2.7 2.3 - 4.2 pg/mL [facility] ACCOUNT BILL BLOOD SPECIMEN / Unknown 07/28/2007 11:41 AM CDT 07/28/2007 6:25 PM CDT Narrative Resulting Agency Comment [facility] [address] ??[facility]ly [facility] [id number] Sherry Fontana MD LAB - CHEMISTRY ORD ERABLES Performing Organization Address City/[facility]/ZIP Co de Phone Number [facility] ACCOUNT BILL * T4 FREE (07/28/2007 11:41 AM CDT) T4 Free 1.20 0.61 - 1.76 ng/dL [facility] ACCOUNT BILL BLOOD SPECIMEN / Unknown 07/28/2007 11:41 AM CDT 07/28/2007 6:25 PM CDT Narrative Resulting Agency Comment [facility] [address] ??[facility]ly [facility] [phone] Sherry Fontana MD LAB - CHEMISTRY ORD ERABLES [facility] ACCOUNT BILL * CARDIOLOGY REFERRAL TO [facility]ICE (07/28/2007) Diana Pierce DO OUTPATIENT REFERRALS * FL FLUORO GUIDED SPINAL INJECTION (09/27/2006 8:05 AM CDT) Anatomical Region Laterality Modality Spine Other 09/27/2006 8:05 AM CDT Narrative 09/27/2006 1:09 PM CDT NO DICTATION. ? Reading Radiologist- JENNIFER BAI MD ? Releasing RadiologistNahed BAI MD ? Released Date Time- 09/27/06 1647 ? Oil Gas And Pipe Tester- KRV ? ADM- JHONATAN WILLIAMSON ?ATT- JHONATAN WILLIAMSON REF- JHONATAN WILLIAMSON ?CON- PCP- ESTUARDO SALCIDO ? SCP- Jhonatan Williamson [facility] Care Teams Service Shop Foreman Relationship Specialty Start Date End Date Trav Bailey MD [facility] [place] [id number] Pulmonary Disease 10/07/14 Lenny Zepeda MD [address] [facility] [address] [place] [address] -x7 (Work) Cardiovascular Disease 10/07/14
--- OUTSIDE RECORDS SUMMARY | 2024-03-12 08:12 | XMS_ITS | Encounter Summary ---
Author Organization [facility] Health Address [address] [facility] [place] [address] Care Team Providers Care Material Control Specialist Name Role Phone Nando Pierce DO Primary Care Provider [phone] Trav Mullins MD Unavailable [phone] Lenny Zepeda MD Unavailable [phone] Nando Pierce DO Unavailable Nando Pierce DO Unavailable Nando Pierce DO Unavailable Jaelyn Turner MA Unavailable Encounter Details Date Type Department Care Team (Late st Contact Info) Description 01/14/2011 [facility] Outpatient Visit [facility] [address] [place], [place] [id number] Unknown, Provider Social History Tobacco Use Types Packs/Day Years Used Date Smoking Tobacco: Never Alcohol Use Standard Drinks/Week Comments Yes 0 (1 standard drink = 0.6 oz pur e alcohol) rare Sex and Gender Information Value Date Recorded Sex Assigned at Not on file Gender Identity Not on file Sexual Orientation Not on file documented as of this encounter Plan of Treatment Not on file documented as of this encounter Visit Diagnoses Not on filedocumented in this encounter Care Teams Material Control Specialist Relationship Specialty Start Date End Date Nando Pierce DO [address] [address] [place] [address] PCP - General 01/23/08 12/06/23 [place] [address] [address] [phone] PCP - Attributed-[facility] 01/14/19 01/29/21 [place] [address] [place] [address] PCP - Attributed-[facility] 03/17/21 07/31/21 [place] [address] [address] [address] PCP - Attributed-[facility] 10/15/21 05/01/22 Trav Mullins MD [address] [place] [address] Pulmonary Disease 10/07/14 Lenny Zepeda MD [address] [facility] [address] [place] [address] -x7 (Work) Cardiovascular Disease 10/07/14 Jaelyn Turner MA Care Coordination Specialist Care Management 06/16/23 07/31/23 documented as of this encounter
--- OUTSIDE RECORDS SUMMARY | 2024-03-12 08:12 | XMS_ITS | Encounter Summary ---
Author Organization [facility] Health Address [address] [facility] [place] [address] Care Team Providers Care Director Software Name Role Phone Nando Pierce DO Primary Care Provider [phone] Trav Mullins MD Unavailable [phone] Lenny Zepeda MD Unavailable [phone] Nanod Pierce DO Unavailable Nando Pierce DO Unavailable Nando Pierce DO Unavailable Jaelyn Turner MA Unavailable [phone] Encounter Details Date Type Department Care Team (Late st Contact Info) Description 10/13/2012 [facility] Outpatient Visit [facility] [address] [place], [place] [id number] Unknown, Provider Social History Tobacco Use Types Packs/Day Years Used Date Smoking Tobacco: Never Smokeless Tobacco: Never Alcohol Use Standard Drinks/Week Comments No 0 (1 standard drink = 0.6 oz pur e alcohol) Sex and Gender Information Value Date Recorded Sex Assigned at Not on file Gender Identity Not on file Sexual Orientation Not on file documented as of this encounter Plan of Treatment Not on file documented as of this encounter Visit Diagnoses Not on filedocumented in this encounter Care Teams Director Software Relationship Specialty Start Date End Date Nando Pierce DO [address] [address] [address] [place] [address] PCP - General 01/23/08 12/06/23 [place] [address] [address] [address] PCP - Attributed-[facility] 01/14/19 01/29/21 [place] [address] [address] [address] PCP - Attributed-[facility] 03/17/21 07/31/21 [place] [address] [address] [address] PCP - Attributed-[facility] 10/15/21 05/01/22 Trav Mullins MD [address] [place] [address] Pulmonary Disease 10/07/14 Lenny Zepeda MD [address] [facility] [address] [place] [address] -[phone] (Work) Cardiovascular Disease 10/07/14 Jaelyn Turner MA Care Coordination Specialist Care Management 06/16/23 07/31/23 documented as of this encounter
--- OUTSIDE RECORDS SUMMARY | 2024-03-12 08:12 | XMS_ITS | Referral Summary ---
Author Organization [facility] Address [address] [place] [address] Care Team Providers Care Extruder Operator Multiple Name Role Phone Alessandro Sanchez DO Primary Care Provider Allergies No known active allergies Medications sacubitriL-valsarta n (ENTRESTO) 24-26 mg tabletIndications:c hronic heart failure Take 1 tablet by mouth 2 (two) times a day 180 tablet 3 4 Active carvediloL (COREG) 25 mg tablet Take 1 tablet (25 mg total) by mouth 2 (two) times a day with meals 180 tablet 3 4 Active ondansetron ODT (ZOFRAN-ODT) 4 mg disintegrating tablet Take 1 tablet (4 mg total) by mouth once 4 Active oxyCODONE-acetamino phen (PERCOCET) 5-325 mg per tablet Take 1 tablet by mouth every 8 (eight) hours as needed 4 Active Active Problems Problem Noted Date Diagnosed Date Monocular elevation deficiency of right eye 08/14 Chronic systolic heart failure (CMS/HCC) 023 Essential hypertension 08/27/2022 Hyperlipidemia 08/27/2022 Social History Tobacco Use Types Packs/Day Years Used Date Smoking Tobacco: Never Passive Smoke Exposure: Never Smokeless Tobacco: Never Tobacco Cessation:Counseling Given: Not Answered AUDIT-C Answer Date Recorded Q1: How often do you have a drink containing alc ohol? Never 08/31/2023 Average Number of Drinks Not on file 024 Frequency of Binge Drinking Not on file 08/14 Personal Safety Answer Date Recorded Getting School Help Needed Not on file 02/15 Comments Unknown Sex and Gender Information Value Date Recorded Sex Assigned at Not on file Legal Sex Female 12:30 AM DENTURE FINISHER Gender Identity Not on file Sexual Orientation Not on file Last Filed Vital Signs Vital Sign Reading Time Taken Comments Blood Pressure 144/85 02/28/2023 11:55 AM DENTURE FINISHER Pulse 62 02/28/2023 11:55 AM DENTURE FINISHER Temperature - - Respiratory Rate 18 02/28/2023 11:55 AM DENTURE FINISHER Oxygen Saturation - - Inhaled Oxygen Concentration - - Weight 94.8 kg (209 lb) 02/28/2023 11:55 AM DENTURE FINISHER Height 167.6 cm (5' 6 ) 02/28/2023 11:55 AM DENTURE FINISHER Body Mass Index 33.73 02/28/2023 11:55 AM DENTURE FINISHER Plan of Treatment Not on file Insurance [address] [place], [place] [address]R HMO REF AETNA MEDICARE Care Teams Extruder Operator Multiple Relationship Specialty Start Date End Date Alessandro Sanchez DO [address] [place] [address] PCP - General Family Medicine 02/28/23
--- OUTSIDE RECORDS SUMMARY | 2024-03-12 08:12 | XMS_ITS | Clinical Summary ---
Author Organization [facility] Address [address] [place] [address] Care Team Providers Care Tube Skiver Name Role Phone Alessandro Sanchezh Primary Care Provider Allergies No known active [...] on file Legal Sex Female 12:30 AM GAS ATTENDANT Gender Identity Not on file Sexual Orientation Not on file Obstetrics History Last Filed Vital Signs Vital Sign Reading Time Taken Comments Blood Pressure 144/85 02/28/2023 11:55 AM GAS ATTENDANT Pulse 62 02/28/2023 11:55 AM GAS ATTENDANT Temperature - - Respiratory Rate 18 02/28/2023 11:55 AM GAS ATTENDANT Oxygen Saturation - - Inhaled Oxygen Concentration - - Weight 94.8 kg (209 lb) 02/28/2023 11:55 AM GAS ATTENDANT Height 167.6 cm (5' 6 ) 02/28/2023 11:55 AM GAS ATTENDANT Body Mass Index 33.73 02/28/2023 11:55 AM GAS ATTENDANT Plan of Treatment Health Maintenance Due Date Last Done Comments Depression Screening 11/13/1945 Fall Risk Assessment 11/13/1945 Hepatitis B Screening 11/12/1961 Well Visit 65+ 11/12/2008 Osteoporosis Screening-Bone Density Scan 07/17/2014 07/17/2012 DTaP/Tdap/Td Vaccine (2 - Td or Tdap) 07/17/2017 07/18/2007 Covid-19 Vaccine (2023-2 5 season) 2023 11/10/2022, 11/18/2021, 05/28/2021, Additional history exists Influenza Vaccine (#1) 2023 , 11/18/2021, 11/06/2020, Additional history exists Pneumococcal vaccine 65+ Completed 09/18/2014, 06/14 Zoster Vaccine Completed 01/31/2020, 10/15, 12/01/2011 Insurance AETNA MEDICARE AETNA MEDICARE Care Teams Tube Skiver Relationship Specialty Start Date End Date Alessandro Sanchez DO [address] [place] [address] PCP - General Family Medicine 02/28/23
--- OUTSIDE RECORDS SUMMARY | 2024-03-12 08:12 | XMS_ITS | Encounter Summary ---
Author Organization [facility] Health Address [address] [place] [address] Care Team Providers Care Mammographer Name Role Phone Nando Pierce DO Primary Care Provider [phone] Trav Mullins MD Unavailable [phone] Lenny Zepeda MD Unavailable [phone] Nando Pierce DO Unavailable Nando Pierce DO Unavailable Nando Pierce DO Unavailable Jaelyn Turner MA Unavailable [phone] Encounter Details Date Type Department Care Team (Late st Contact Info) Description 03/04/2015 Therapy Visit [facility] [address] [place], [place] [phone] Document, Scanned Social History Tobacco Use Types Packs/Day Years [...] on file documented as of this encounter Goals Goal Patient Goal Type Associated Problems Recent Progress Patient-Stated? Author Blood Pressure < 140/90 Blood Pressure 142/86( 023 12:43 PM IP ARCHITECT) No Cecilia Christianson Diet - low sodium 2 gm daily Diet No Annabelle Sanders, RENU documented as of this encounter Visit Diagnoses Not on filedocumented in this encounter Care Teams Mammographer Relationship Specialty Start Date End Date Nando Pierce DO [address] [place] [id number] PCP - General 01/23/08 12/06/23 [place] [address] [facility] [place] [address] PCP - Attributed-[facility] 01/14/19 01/29/21 [place] [address] [facility] [place] [address] PCP - Attributed-[facility] 03/17/21 07/31/21 [place] [address] [facility] [place] [address] PCP - Attributed-[facility] 10/15/21 05/01/22 Trav Mullins MD [address] [place] [address] Pulmonary Disease 10/07/14 Lenny Zepeda MD [address] [facility] [address] [place] [address] -x7 (Work) Cardiovascular Disease 10/07/14 Jaelyn Turner MA Care Coordination Specialist Care Management 06/16/23 07/31/23 documented as of this encounter
--- OUTSIDE RECORDS SUMMARY | 2024-03-12 08:12 | XMS_ITS | Encounter Summary ---
Author Organization [facility] Health Address [address] [facility] [place] [address] Care Team Providers Care Lumber Checker Name Role Phone Nando Pierce DO Primary Care Provider [phone] Trav Mullins MD Unavailable [phone] Lenny Zepeda MD Unavailable [phone] Nando Pierce DO Unavailable Nando Pierce DO Unavailable Nando Pierce DO Unavailable Jaelyn Turner MA Unavailable [phone] Encounter Details Date Type Department Care Team (Late st Contact Info) Description 03/13/2015 Therapy Visit [facility] [address] [place], [place] [phone] Document, Scanned Social History Tobacco Use Types [...] 140/90 Blood Pressure 142/86( 023 12:43 PM CURTAIN SUPERVISOR) No Cecilia Christianson Diet - low sodium 2 gm daily Diet No Annabelle Sanders, RENU documented as of this encounter Visit Diagnoses Not on filedocumented in this encounter Care Teams Lumber Checker Relationship Specialty Start Date End Date Nando Pierce DO [address] [place] [phone] PCP - General 01/23/08 12/06/23 [place] [address] [facility] [place] [address] PCP - Attributed-[facility] 01/14/19 01/29/21 [place] [address] [facility] [place] [address] PCP - Attributed-[facility] 03/17/21 07/31/21 [place] [address] [facility] [place] [address] PCP - Attributed-[facility] 10/15/21 05/01/22 Trav Mullins MD [address] [place] [address] Pulmonary Disease 10/07/14 Lenny Zepeda MD [address] [facility] [address] [place] [address] -x7 (Work) Cardiovascular Disease 10/07/14 Jaelyn Turner MA Care Coordination Specialist Care Management 06/16/23 07/31/23 documented as of this encounter
--- OUTSIDE RECORDS SUMMARY | 2024-03-12 08:12 | XMS_ITS | Encounter Summary ---
Author Organization [facility] Address [address] [facility] [place] [address] Care Team Providers Care Electronic Scanner Operator Name Role Phone Nando Pierce DO Primary Care Provider [phone] Trav Mullins MD Unavailable [phone] Lenny Zepeda MD Unavailable [phone] Nando Pierce DO Unavailable Nando Pierce DO Unavailable Jaelyn Turner MA Unavailable [phone] Encounter Details Date Type Department Care Team (Late st Contact Info) Description 03/20/2021 [facility] Outpatient Visit [facility] [address] [place] [address], [address] [address] Document, Scanned Social History Tobacco Use Types Packs/Day Years Used Date Smoking Tobacco: Never Smokeless Tobacco: Never Alcohol Use Standard Drinks/Week Comments No 0 (1 standard drink = 0.6 oz pur e alcohol) PHQ-2 Answer Date Recorded PHQ2 TOTAL SCORE 0 10/29/2020 Sex and Gender Information Value Date Recorded Sex Assigned at Not on file Gender Identity Not on file Sexual Orientation Not on file documented as of this encounter Functional Status Functional Status Response Date of [...] person have difficulty concentrating/remembering/making decisions? No 09/29/2017 documented as of this encounter Plan of Treatment Not on file documented as of this encounter Goals Goal Patient Goal Type Associated Problems Recent Progress Patient-Stated? Author Blood Pressure < 140/90 Blood Pressure 142/86(2022 12:43 PM BAR HOST/HOSTESS) No Cecilia Christianson Diet - low sodium 2 gm daily Diet No Annabelle Sanders LPN Right level of care at the right time General Yes Vane Cee, [place] Note: Marialuisa will call the doctor if: he/she has an increased temperature (greater than 101), unrelieved pain, symptoms that are not relieved or worsening, and side effects of medications. Progress toward goal attainment: 0% : Ongoing / No progress Barriers to goal attainment: None identified at this time documented as of this encounter Visit Diagnoses Not on filedocumented in this encounter Care Teams Electronic Scanner Operator Relationship Specialty Start Date End Date Nando Pierce DO [address] [place] [address] PCP - General 01/23/08 12/06/23 [place] [address] [facility] [place] [address] PCP - Attributed-[facility] 03/17/21 07/31/21 [place] [address] [facility] [place] [address] PCP - Attributed-[facility] 10/15/21 05/01/22 Trav Mullins MD [facility] [place] [address] Pulmonary Disease 10/07/14 Lenny Zepeda MD [address] [facility] 150 [place] [address] -x7 (Work) Cardiovascular Disease 10/07/14 Jaelyn Turner MA Care Coordination Specialist Care Management 06/16/23 07/31/23 documented as of this encounter
--- OUTSIDE RECORDS SUMMARY | 2024-03-12 08:12 | XMS_ITS | Encounter Summary ---
Author Organization [facility] Address [address] [place] [address] Care Team Providers Care Administrative Library Assistant Name Role Phone Nando Pierce DO Primary Care Provider Trav Mullins MD Unavailable [phone] Lenny Zepeda MD Unavailable [phone] Nando Pierce DO Unavailable Nando Pierce DO Unavailable Nando Pierce DO Unavailable Jaelyn Turner MA Unavailable [phone] Encounter Details Date Type Department Care Team (Late st Contact Info) Description 11/03/2012 [facility] Outpatient Visit [facility] [address] [place], [place] [id number] Unknown, Provider Social History Tobacco Use Types [...] on filedocumented in this encounter Care Teams Administrative Library Assistant Relationship Specialty Start Date End Date Nando Pierce DO [address] [address] [address] [place] [address] PCP - General 01/23/08 12/06/23 [place] [address] [address] [address] PCP - Attributed-[facility] 01/14/19 01/29/21 [place] [address] [address] [address] PCP - Attributed-[facility] 03/17/21 07/31/21 [place] [address] [address] [address] PCP - Attributed-[facility] 10/15/21 05/01/22 Trav Mullins MD [address] [place] [address] Pulmonary Disease 10/07/14 Lenny Zepeda MD [address] [facility] [address] [place] [address] -x7 (Work) Cardiovascular Disease 10/07/14 Jaelyn Turner MA Care Coordination Specialist Care Management 06/16/23 07/31/23 documented as of this encounter
== END 2024-03-12 08:02 | disposition home or self-care (01) ==
LOC: CHSIMG 08:03
PROVIDERS: PCP Family Medicine; Visit Provider Nurse Practitioner Family
DX: K74.60 Unspecified cirrhosis of liver (principal); Z90.49 Acquired absence of other specified parts of digestive tract
CPT/HCPCS: 76705

== ENCOUNTER 2024-05-11 13:53 | Outpatient (CLI) | payer MEDICARE, SELFPAY ==
--- OUTSIDE RECORDS SUMMARY | 2024-05-11 13:57 | XMS_ITS | Encounter Summary ---
Author Organization [facility] Address [address] [facility] [place] [address] Care Team Providers Care Dry Cell Assembly Machine Tender Name Role Phone Nando Pierce DO Primary Care Provider Trav Mullins MD Unavailable [phone] Lenny Zepeda MD Unavailable [phone] Nando Pierce DO Unavailable Nando Pierce DO Unavailable Nando Pierce DO Unavailable Jaelyn Turner MA Unavailable [phone] Encounter Details Date Type Department Care Team (Late st Contact Info) Description 10/13/2012 [facility] Outpatient Visit [facility] [address] [place], [place] [id number] Unknown, Provider Social History Tobacco Use Types [...] on filedocumented in this encounter Care Teams Dry Cell Assembly Machine Tender Relationship Specialty Start Date End Date Nando Pierce DO [address] [address] [address] [facility] [place] [address] PCP - General 01/23/08 12/06/23 [place] [address] [address] [address] PCP - Attributed-[facility] [place] 07/20/16 01/29/21 [place] [address] [address] [address] PCP - Attributed-[facility] 03/17/21 07/31/21 [place] [address] [address] [address] PCP - Attributed-[facility] 10/15/21 05/01/22 Trav Mullins MD [address] [place] [address] Pulmonary Disease 10/07/14 Lenny Zepeda MD [address] [facility] [address] [place] [address] -x7 (Work) Cardiovascular Disease 10/07/14 Jaelyn Turner MA Care Coordination Specialist Care Management 06/16/23 07/31/23 documented as of this encounter
--- OUTSIDE RECORDS SUMMARY | 2024-05-11 13:57 | XMS_ITS | Encounter Summary ---
Author Organization [facility] Address [address] [place] [address] Care Team Providers Care Mailing Specialist Name Role Phone Nando Pierce DO Primary Care Provider [phone] Trav Mullins MD Unavailable [phone] Lenny Zepeda MD Unavailable [phone] Nando Pierce DO Unavailable Nando Pierce DO Unavailable Nando Pierce DO Unavailable Jaelyn Turner MA Unavailable [phone] Encounter Details Date Type Department Care Team (Late st Contact Info) Description 03/04/2015 Therapy Visit [facility] [address] [place], [place] [id number] Document, Scanned Social History Tobacco Use Types [...] 140/90 Blood Pressure 142/86( 023 12:43 PM CASINO FLOOR SUPERVISOR) No Cecilia Christianson Diet - low sodium 2 gm daily Diet No Annabelle Sanders, RENU documented as of this encounter Visit Diagnoses Not on filedocumented in this encounter Care Teams Mailing Specialist Relationship Specialty Start Date End Date Nando Pierce DO [address] [place] [phone] PCP - General 01/23/08 12/06/23 [place] [address] [facility] [place] [address] PCP - Attributed-[facility] [place] 07/20/16 01/29/21 [place] [address] [facility] [place] [address] PCP - Attributed-[facility] 03/17/21 07/31/21 [place] [address] [facility] [place] [address] PCP - Attributed-[facility] 10/15/21 05/01/22 Trav Mullins MD [address] [place] [address] Pulmonary Disease 10/07/14 Lenny Zepeda MD [address] [facility] 150 [place] [address] -x7 (Work) Cardiovascular Disease 10/07/14 Jaelyn Turner MA Care Coordination Specialist Care Management 06/16/23 07/31/23 documented as of this encounter
--- OUTSIDE RECORDS SUMMARY | 2024-05-11 13:57 | XMS_ITS | Clinical Summary ---
Author Organization [facility] [employer] Address [address] [facility] [address] [place] [id number] Care Team Providers Care Aircraft Structural Repair Mechanic Name Role Phone Trav Mullins MD Unavailable [phone] Lenny Zepeda MD Unavailable [phone] Source Comments [facility] [employer],non-owned Affiliates and Associated Physician Practices is amultiple site organization consisting of ambulatory clinics and hospital sitesin [place], [place], [place] and [place]. This disclosure is being madepursuant to the Care Everywhere program and may not contain all information available regarding this patient. Last updated 17.[facility] [employer] Allergies No known active allergies Medications * [...] 3 Stroke Brother [address] Mother Cancer - Breast Other pat cousin [...] Comments Blood Pressure 142/86 04/16/2022 12:43 PM FILAMENT WOUND PARTS FABRICATOR Pulse 69 04/16/2022 12:43 PM FILAMENT WOUND PARTS FABRICATOR Temperature 36.8 C (98.3 F) 11/10/2020 1:05 PM CDT Respiratory Rate 20 11/18/2021 12:4 9 PM CDT Oxygen Saturation 97% 04/16/2022 12: 43 PM FILAMENT WOUND PARTS FABRICATOR Inhaled Oxygen Concentration - - Weight 93.4 kg (205 lb 12.8 oz) 023 12:43 PM FILAMENT WOUND PARTS FABRICATOR Height 167.6 cm (5' 6 ) 04/16/2022 12:4 3 PM FILAMENT WOUND PARTS FABRICATOR Body Mass Index 33.22 04/16/2022 12:43 PM FILAMENT WOUND PARTS FABRICATOR Plan of Treatment Health Maintenance Due Date [...] exists DEPRESSION SCREENING 02/15/2024 05/28/2021 MEDICARE AWV CALENDAR YEAR 2024 05/28/2021, 03/13/2020 BONE DENSITY TESTING Completed 07/17/2012, 01/24/20 08 PNEUMOCOCCAL VACCINE 50+ Completed 09/18/2014, 06/14 ZOSTER VACCINE Completed 01/31/2020, 10/15, 12/01/2011 HIB VACCINE Aged Out No longer eligi ble based on patient's age to complete this topic HPV VACCINE Aged Out No longer eligi ble based on patient's age to complete this topic MENINGOCOCCAL (Group B) VACCINE SHARED DECISION-MAKING Aged Out No longer eligible based on patient's age to complete this topic MENINGOCOCCAL GROUPS A/C/Y/W VACCINE Aged Out No longer eligible based on patient's age to complete this topic Goals Goal Patient Goal Type Associated Problems Recent Progress Patient-Stated? Author Blood Pressure < 140/90 Blood Pressure 142/86(2022 12:43 PM FILAMENT WOUND PARTS FABRICATOR) No Cecilia Christianson Diet - low sodium 2 gm daily Diet No Annabelle Sanders, PATIENT SCHEDULING MANAGER Right level of care at the right [...] and an age-matched Z-SCORE of 2.4 . Procedure Note Ching Payton MD - 07/17/2012 [...] study (prior T score -1.1). Kamla Lemus TROLLEY COLLECTOR-APPLICATION ARCHITECT MANAGER DEXA ORDERABLE S from Last 3 Months or Most Recently Relevant to Health Maintenance Advance Directives * Full Code (Latest Code Status on File) Date Activated Date Inactivated Comments 09/29/2017 3:24 PM 09/30/2017 5:47 PM Care Teams Aircraft Structural Repair Mechanic Relationship Specialty Start Date End Date Trav Mullins MD [address] [place] [address] Pulmonary Disease 10/07/14 Lenny Zepeda MD [address] [facility] [address] [place] [address] -x7 (Work) Cardiovascular Disease 10/07/14
--- OUTSIDE RECORDS SUMMARY | 2024-05-11 13:57 | XMS_ITS | Encounter Summary ---
Author Organization [facility] Health Address [address] [place] [address] Care Team Providers Care Bit Tripoler Name Role Phone Nando Pierce DO Primary Care Provider [phone] Trav Mullins MD Unavailable [phone] Lenny Zepeda MD Unavailable [phone] Nando Pierce DO Unavailable Nando Pierce DO Unavailable Jaelyn Turner MA Unavailable [phone] Encounter Details Date Type Department Care Team (Late st Contact Info) Description 03/20/2021 [facility] Outpatient Visit [facility] Orthopedics [address] [place] [address], [address] [address] Document, Scanned Social History Tobacco [...] < 140/90 Blood Pressure 142/86(2022 12:43 PM PHOTONIC LABORATORY TECHNICIAN) No Cecilia Christianson Diet - low sodium [...] on filedocumented in this encounter Care Teams Bit Tripoler Relationship Specialty Start Date End Date Nando Pierce DO [address] [place] [address] PCP - General 01/23/08 12/06/23 [place] [address] [facility] [place] [address] PCP - Attributed-[facility] 03/17/21 07/31/21 [place] [address] [facility] [place] [address] PCP - Attributed-[facility] 10/15/21 05/01/22 Trav Mullins MD [facility] [place] [address] Pulmonary Disease 10/07/14 Lenny Zepeda MD [address] [facility] 150 [place] [address] -x7 (Work) Cardiovascular Disease 10/07/14 Jaelyn Turner MA Care Coordination Specialist Care Management 06/16/23 07/31/23 documented as of this encounter
--- OUTSIDE RECORDS SUMMARY | 2024-05-11 13:57 | XMS_ITS | Encounter Summary ---
Author Organization [facility] Address [address] [facility] [place] [address] Care Team Providers Care Assessor Name Role Phone Nando Pierce DO Primary Care Provider [phone] Trav Mullins MD Unavailable [phone] Lenny Zepeda MD Unavailable [phone] Nando Pierce DO Unavailable Nando Pierce DO Unavailable Nando Pierce DO Unavailable Jaelyn Turner MA Unavailable [phone] Encounter Details Date Type Department Care Team (Late st Contact Info) Description 03/13/2015 Therapy Visit [facility] [address] [place], [place] [id number] Document, Scanned Social History Tobacco Use Types [...] 140/90 Blood Pressure 142/86( 023 12:43 PM SUPPLY CHAIN ASSOCIATE) No Cecilia Christianson Diet - low sodium 2 gm daily Diet No Annabelle Sanders, RENU documented as of this encounter Visit Diagnoses Not on filedocumented in this encounter Care Teams Assessor Relationship Specialty Start Date End Date Nando Pierce DO [address] [place] [phone] PCP - General 01/23/08 12/06/23 [place] [address] [facility][1] [place] [address] PCP - Attributed-[facility] [place] 07/20/16 01/29/21 [place] [address] [facility][1] [place] [address] PCP - Attributed-[facility] 03/17/21 07/31/21 [place] [address] [facility][1] [place] [address] PCP - Attributed-[facility] 10/15/21 05/01/22 Trav Mullins MD [address] [place] [address] Pulmonary Disease 10/07/14 Lenny Zepeda MD [address] [facility] 150 [place] [address]x7 (Work) Cardiovascular Disease 10/07/14 Jaelyn Turner MA Care Coordination Specialist Care Management 06/16/23 07/31/23 documented as of this encounter
--- OUTSIDE RECORDS SUMMARY | 2024-05-11 13:57 | XMS_ITS | Clinical Summary ---
Author Organization [facility] Address [address] [place] [address] Care Team Providers Care Floorworker Name Role Phone Alessandro Sanchezh Primary Care [...] right eye 08/14 Chronic systolic heart failure 08/27/2022 Essential hypertension 08/27/2022 Hyperlipidemia 08/27/2022 Social History [...] on file Legal Sex Female 12:30 AM FURNACE CONVERTER Gender Identity Not on file Sexual Orientation Not on file Obstetrics History Last Filed Vital Signs Vital Sign Reading Time Taken Comments Blood Pressure 144/85 02/28/2023 11:55 AM FURNACE CONVERTER Pulse 62 02/28/2023 11:55 AM FURNACE CONVERTER Temperature - - Respiratory Rate 18 02/28/2023 11:55 AM FURNACE CONVERTER Oxygen Saturation - - Inhaled Oxygen Concentration - - Weight 94.8 kg (209 lb) 02/28/2023 11:55 AM FURNACE CONVERTER Height 167.6 cm (5' 6 ) 02/28/2023 11:55 AM FURNACE CONVERTER Body Mass Index 33.73 02/28/2023 11:55 AM FURNACE CONVERTER Plan of Treatment Health Maintenance Due Date [...] Completed 01/31/2020, 10/15, 12/01/2011 Insurance [employer] MEDICARE A[employer] MEDICARE Care Teams Floorworker Relationship Specialty Start Date End Date Alessandro Sanchez DO [address] [place] [address] PCP - General Family Medicine 02/28/23
--- OUTSIDE RECORDS SUMMARY | 2024-05-11 13:57 | XMS_ITS | Encounter Summary ---
Author Organization [facility] Health Address [address] [place] [address] Care Team Providers Care Opener Name Role Phone Nando Pierce DO Primary Care Provider [phone] Trav Mullins MD Unavailable [phone] Lenny Zepeda MD Unavailable [phone] Nando Pierce DO Unavailable Nando Pierce DO Unavailable Nando Pierce DO Unavailable Jaelyn Turner MA Unavailable [phone] Encounter Details Date Type Department Care Team (Late st Contact Info) Description 01/14/2011 [facility] Outpatient Visit [facility] RE[facility] [address] [place], [place] [id number] Unknown, Provider Social History Tobacco Use Types [...] on filedocumented in this encounter Care Teams Opener Relationship Specialty Start Date End Date Nando Pierce DO [address] [address] [address] [place] [phone] PCP - General 01/23/08 12/06/23 [place] [address] [address] [address] PCP - Attributed-[facility] 07/20/16 01/29/21 [place] [address] [place] [address] PCP - Attributed-[facility] 03/17/21 07/31/21 [place] [address] [address] [address] PCP - Attributed-[facility] 10/15/21 05/01/22 Trav Mullins MD [address] [place] [address] Pulmonary Disease 10/07/14 Lenny Zepeda MD [address] [facility] [address] [place] [address]x7 (Work) Cardiovascular Disease 10/07/14 Jaelyn Turner MA Care Coordination Specialist Care Management 06/16/23 07/31/23 documented as of this encounter
--- OUTSIDE RECORDS SUMMARY | 2024-05-11 13:57 | XMS_ITS | Referral Summary ---
Author Organization [facility] Address [address] [place] [address] Care Team Providers Care Winding Machine Operator Name Role Phone Alessandro Sanchez DO Primary [...] on file Legal Sex Female 12:30 AM STOPPER MAKER HELPER Gender Identity Not on file Sexual Orientation Not on file Last Filed Vital Signs Vital Sign Reading Time Taken Comments Blood Pressure 144/85 02/28/2023 11:55 AM STOPPER MAKER HELPER Pulse 62 02/28/2023 11:55 AM STOPPER MAKER HELPER Temperature - - Respiratory Rate 18 02/28/2023 11:55 AM STOPPER MAKER HELPER Oxygen Saturation - - Inhaled Oxygen Concentration - - Weight 94.8 kg (209 lb) 02/28/2023 11:55 AM STOPPER MAKER HELPER Height 167.6 cm (5' 6 ) 02/28/2023 11:55 AM STOPPER MAKER HELPER Body Mass Index 33.73 02/28/2023 11:55 AM STOPPER MAKER HELPER Plan of Treatment Not on file [facility] Address: [address] [address] [place] [address] [facility] MEDICARE Care Teams Winding Machine Operator Relationship Specialty Start Date End Date Alessandro Sanchez DO [address] [place] [address] PCP - General Family Medicine 02/28/23
--- OUTSIDE RECORDS SUMMARY | 2024-05-11 13:57 | XMS_ITS | Encounter Summary ---
Author Organization [facility] Health Address [address] [facility] [place] [address] Care Team Providers Care Director Of Revenue Name Role Phone Nando Pierce DO Primary Care Provider [phone] Trav Mullins MD Unavailable [phone] Lenny Zepeda MD Unavailable [phone] Nando Pierce DO Unavailable Nando Pierce DO Unavailable Nando Pierce DO Unavailable Jaelyn Turner MA Unavailable [phone] Encounter Details Date Type Department Care Team (Late st Contact Info) Description 11/03/2012 [facility] Outpatient Visit [facility] REH[facility] [address] [place], [place] [phone] Unknown, Provider Social History Tobacco Use Types [...] filedocumented in this encounter Care Teams Director Of Revenue Relationship Specialty Start Date End Date Nando Pierce DO [address] [address] [address] [place] [address] PCP - General 01/23/08 12/06/23 [place] [address] [address] [address] PCP - Attributed-[facility] [place] 07/20/16 01/29/21 [place] [address] [address] [address] PCP - Attributed-[facility] 03/17/21 07/31/21 [place] [address] [address] [address] PCP - Attributed-[facility] 10/15/21 05/01/22 Trav Mullins MD [address] [place] [address] Pulmonary Disease 10/07/14 Lenyn Zepeda MD [address] [facility] [address] [place] [address] -x7 (Work) Cardiovascular Disease 10/07/14 Jaelyn Turner MA Care Coordination Specialist Care Management 06/16/23 07/31/23 documented as of this encounter
[2024-05-11 14:12] LABS: Hematocrit 39.3 % (35.0-42.0); Hemoglobin 12.5 g/dL (11.7-13.8); Mean Corpuscular HGB Conc 31.8 g/dL (32-36); Mean Corpuscular Hemoglobin 30.9 pg (27.0-31.0); Mean Platelet Volume 10.1 fl (9.2-11.8); Platelet Count Result 214 K/mm3 (150-420); Red Blood Count 4.05 M/mm3 (4.20-5.40); Red Cell Distribution Width 12.9 % (11.6-14.4); White Blood Count 9.6 K/mm3 (4.8-10.8)
[2024-05-11 14:30] LABS: INR 1.1; Prothrombin Time 12.1 Seconds (9.50-12.1)
[2024-05-11 14:50] LABS: Alanine Aminotransferase 25 U/L (14-59); Albumin Level 2.9 g/dL (3.4-5.0); Alkaline Phosphatase 159 U/L (46-116); Anion Gap 6 mmol/L (4-12); Aspartate Amino Transferase 19 U/L (15-37); Bilirubin,Total 0.6 mg/dL (0.00-1.00); Blood Urea Nitrogen 13 mg/dL (7-18); Calcium 9.2 mg/dL (8.5-10.1); Carbon Dioxide 30 mmol/L (21-32); Chloride 105 mmol/L (98-108); Estimated Glomerular Filt Rate 48; Glucose 87 mg/dL (70-99); Osmolality Calculated 291 mOsm/kg (285-295); Potassium 4.4 mmol/L (3.5-5.1); Sodium 141 mmol/L (136-145); Total Protein 7.6 g/dL (6.4-8.2)
== END 2024-05-11 13:54 | disposition home or self-care (01) ==
LOC: CHSLAB 13:54
PROVIDERS: PCP Family Medicine; Visit Provider Nurse Practitioner Family
DX: R74.8 Abnormal levels of other serum enzymes (principal); K74.60 Unspecified cirrhosis of liver
CPT/HCPCS: 36415; 80053; 85027; 85610

== ENCOUNTER 2024-05-12 11:51 | Emergency (ER) | payer MEDICARE, SELFPAY ==
[2024-05-12 11:53] VITALS: BP 150/72; PULSE 69; RESP 16; TEMP 36.8; O2SAT 99
--- OUTSIDE RECORDS SUMMARY | 2024-05-12 11:53 | XMS_ITS | Encounter Summary ---
Author Organization [facility] Health Address [address] [facility] [place] [address] Care Team Providers Care Infrastructure Tech Name Role Phone Nando Pierce DO Primary Care Provider [phone] Trav Mullins MD Unavailable [phone] Lenny Zepeda MD Unavailable [phone] Nando Pierce DO Unavailable Nando Pierce DO Unavailable Nando Pierce DO Unavailable Jaelyn Turner MA Unavailable [phone] Encounter Details Date Type Department Care Team (Late st Contact Info) Description 01/14/2011 [facility] Outpatient Visit [facility] REHAB [address] [place], [place] [id number] Unknown, Provider Social History Tobacco Use Types [...] on filedocumented in this encounter Care Teams Infrastructure Tech Relationship Specialty Start Date End Date Nando Pierce DO [address] [address] [address] [place] [id number] PCP - General 01/23/08 12/06/23 [place] [address] [address] [phone] PCP - Attributed-[facility] 07/20/16 01/29/21 [place] [address] [place] [place] [address] PCP - Attributed-[facility] 03/17/21 07/31/21 [place] [address] ARI[address] Hubbard [address] PCP - Attributed-[facility] 10/15/21 05/01/22 Trav Mullins MD [address] [place] [address] Pulmonary Disease 10/07/14 Lenny Zepeda MD [address] [facility] [address] [place] [address] -x7 (Work) Cardiovascular Disease 10/07/14 Jaelyn Turner MA Care Coordination Specialist Care Management 06/16/23 07/31/23 documented as of this encounter
--- OUTSIDE RECORDS SUMMARY | 2024-05-12 11:53 | XMS_ITS | Encounter Summary ---
Author Organization [facility] Health Address [address] [facility] [place] [address] Care Team Providers Care Test Lab Technician Name Role Phone Nando Pierce DO Primary Care Provider Trav Mullins MD Unavailable [phone] Lenny Zepeda MD Unavailable [phone] Nando Pierce DO Unavailable Nando Pierce DO Unavailable Nando Pierce DO Unavailable Jaelyn Turner MA Unavailable [phone] Encounter Details Date Type Department Care Team (Late st Contact Info) Description 10/13/2012 [facility] Outpatient Visit [facility] REHAB [address] [place], [place] [id number] Unknown, Provider Social History Tobacco Use Types [...] on filedocumented in this encounter Care Teams Test Lab Technician Relationship Specialty Start Date End Date Nando Pierce DO [address] [address] [address] [facility] [place] [address] PCP - General 01/23/08 12/06/23 [place] [address] [address] [address] PCP - Attributed-[facility] [place] 07/20/16 01/29/21 [place] [address] [address] [address] PCP - Attributed-[facility] 03/17/21 07/31/21 [place] [address] [address] [address] PCP - Attributed-[facility] 10/15/21 05/01/22 Trav Mullins MD [address] [place] [address] Pulmonary Disease 10/07/14 eLnny Zepeda MD 300 [facility] [address] [place] [address] -x7 (Work) Cardiovascular Disease 10/07/14 Jaelyn Turner MA Care Coordination Specialist Care Management 06/16/23 07/31/23 documented as of this encounter
--- OUTSIDE RECORDS SUMMARY | 2024-05-12 11:53 | XMS_ITS | Encounter Summary ---
Author Organization [facility] Health Address [address] [place] [address] Care Team Providers Care Rn Cvicu Name Role Phone Nando Pierce DO Primary Care Provider [phone] Trav Mullins MD Unavailable [phone] Lenny Zepeda MD Unavailable [phone] Nando Pierce DO Unavailable Nando Pierce DO Unavailable Nando Pierce DO Unavailable Jaelyn Turner MA Unavailable [phone] Encounter Details Date Type Department Care Team (Late st Contact Info) Description 03/04/2015 Therapy Visit [facility] REHAB [address] [place], [place] [id number] Document, Scanned Social History Tobacco Use Types [...] 140/90 Blood Pressure 142/86( 023 12:43 PM JEWELRY MODEL MAKER) No Cecilia Christianson Diet - low sodium 2 gm daily Diet No Annabelle Sanders, RENU documented as of this encounter Visit Diagnoses Not on filedocumented in this encounter Care Teams Rn Cvicu Relationship Specialty Start Date End Date Nando Pierce DO [address] [place] [id number] PCP - General 01/23/08 12/06/23 [place] [address] [facility] [place] [address] PCP - Attributed-[facility] [place] 07/20/16 01/29/21 [place] [address] [facility] [place] [address] PCP - Attributed-[facility] 03/17/21 07/31/21 [place] [address] [facility] [place] [address] PCP - Attributed-[facility] 10/15/21 05/01/22 Trav Mullins MD [address] [place] [address] Pulmonary Disease 10/07/14 Lenny Zepeda MD 300 [facility] [address] [place] [address] -x7 (Work) Cardiovascular Disease 10/07/14 Jaelyn Turner MA Care Coordination Specialist Care Management 06/16/23 07/31/23 documented as of this encounter
--- OUTSIDE RECORDS SUMMARY | 2024-05-12 11:53 | XMS_ITS | Encounter Summary ---
Author Organization [facility] Health Address [address] [facility] [place] [address] Care Team Providers Care Yardage Tufting Machine Operator Name Role Phone Nando Pierce DO Primary Care Provider [phone] Trav Mullins MD Unavailable [phone] Lenny Zepeda MD Unavailable [phone] Nanod Pierce DO Unavailable Nando Pierce DO Unavailable Nando Pierce DO Unavailable Jaelyn Turner MA Unavailable [phone] Encounter Details Date Type Department Care Team (Late st Contact Info) Description 11/03/[address] [facility] Outpatient Visit [facility] REHAB [address] [place], [place] [phone] Unknown, Provider Social History Tobacco Use Types [...] on filedocumented in this encounter Care Teams Yardage Tufting Machine Operator Relationship Specialty Start Date End Date Nando Pierce DO [address] [address] [address] [place] [address] PCP - General 01/23/08 12/06/23 [place] [address] [address] [address] PCP - Attributed-[facility] [place] 07/20/16 01/29/21 [place] [address] [address] [address] PCP - Attributed-[facility] 03/17/21 07/31/21 [place] [address] [address] [address] PCP - Attributed-[facility] 10/15/21 05/01/22 Trav Mullins MD [address] [place] [address] Pulmonary Disease 10/07/14 Lenny Zepeda MD 300 [facility] [address] [place] [address]x7 (Work) Cardiovascular Disease 10/07/14 Jaelyn Turner MA Care Coordination Specialist Care Management 06/16/23 07/31/23 documented as of this encounter
--- OUTSIDE RECORDS SUMMARY | 2024-05-12 11:53 | XMS_ITS | Encounter Summary ---
Author Organization [facility] Health Address [address] [facility] [place] [address] Care Team Providers Care Video Game Technician Name Role Phone Nando Pierce DO Primary Care Provider [phone] Trav Mullins MD Unavailable [phone] Lenny Zepeda MD Unavailable [phone] Nando Pierce DO Unavailable Nando Pierce DO Unavailable Nando Pierce DO Unavailable Jaelyn Turner MA Unavailable [phone] Encounter Details Date Type Department Care Team (Late st Contact Info) Description 03/13/2015 Therapy Visit [facility] REHAB [address] [place], [place] [phone] Document, Scanned Social History Tobacco Use Types [...] 140/90 Blood Pressure 142/86( 023 12:43 PM DELIVERY DIRECTOR) No Cecilia Christianson Diet - low sodium 2 gm daily Diet No Annabelle Sanders, RENU documented as of this encounter Visit Diagnoses Not on filedocumented in this encounter Care Teams Video Game Technician Relationship Specialty Start Date End Date Nando Pierce DO [address] [place] [phone] PCP - General 01/23/08 12/06/23 [place] [address] [place] [address] PCP - Attributed-[facility] [place] 07/20/16 01/29/21 [place] [address] [place] [address] PCP - Attributed-[facility] 03/17/21 07/31/21 [place] [address] [place] [address] PCP - Attributed-[facility] 10/15/21 05/01/22 Trav Mullins MD [address] [place] [address] Pulmonary Disease 10/07/14 Lenny Zepeda MD 300 [facility] [address] [place] [address]x7 (Work) Cardiovascular Disease 10/07/14 Jaelyn Turner MA Care Coordination Specialist Care Management 06/16/23 07/31/23 documented as of this encounter
--- OUTSIDE RECORDS SUMMARY | 2024-05-12 11:53 | XMS_ITS | Clinical Summary ---
Author Organization [facility] Address [address] [place] [address] Care Team Providers Care Jewelry Maker Name Role Phone Trav Mullins MD Unavailable [phone] Lenny Zepeda MD Unavailable [phone] Source Comments [facility],non-owned Affiliates and Associated Physician Practices is amultiple site organization consisting of ambulatory clinics and hospital sitesin [place], [place], [place] and [place]. This disclosure is being madepursuant to the Care Everywhere program and may not contain all information available regarding this patient. Last updated 17.[facility] Allergies No known active allergies Medications * [...] 3 Stroke Brother 4 Heart Failure Father [place] Mother Cancer - Breast Other pat cousin [...] Comments Blood Pressure 142/86 04/16/2022 12:43 PM FRENCH TRANSLATOR Pulse 69 04/16/2022 12:43 PM FRENCH TRANSLATOR Temperature 36.8 C (98.3 F) 11/10/2020 1:05 PM CDT Respiratory Rate 20 11/18/2021 12:4 9 PM CDT Oxygen Saturation 97% 04/16/2022 12: 43 PM FRENCH TRANSLATOR Inhaled Oxygen Concentration - - Weight 93.4 kg (205 lb 12.8 oz) 023 12:43 PM FRENCH TRANSLATOR Height 167.6 cm (5' 6 ) 04/16/2022 12:4 3 PM FRENCH TRANSLATOR Body Mass Index 33.22 04/16/2022 12:43 PM FRENCH TRANSLATOR Plan of Treatment Health Maintenance Due Date [...] < 140/90 Blood Pressure 142/86(2022 12:43 PM FRENCH TRANSLATOR) No Cecilia Christianson Diet - low sodium 2 gm daily Diet No Annabelle Sanders, SWEET PICKLED FRUIT MAKER Right level of care at the right [...] study (prior T score -1.1). Kamla Lemus HEEL STIFFENER-CONGRESSIONAL ASSISTANT DEXA ORDERABLE S from Last 3 Months or Most Recently Relevant to Health Maintenance Advance Directives * Full Code (Latest Code Status on File) Date Activated Date Inactivated Comments 09/29/2017 3:24 PM 09/30/2017 5:47 PM Care Teams Jewelry Maker Relationship Specialty Start Date End Date Trav Mullins MD [address] [place] [address] Pulmonary Disease 10/07/14 Lenny Zepeda MD 300 [facility] [address] [place] [address]x7 (Work) Cardiovascular Disease 10/07/14
--- OUTSIDE RECORDS SUMMARY | 2024-05-12 11:53 | XMS_ITS | Encounter Summary ---
Author Organization [facility] Health Address [address] [place] [address] Care Team Providers Care Engagement Mgr Name Role Phone Nando Pierce DO Primary Care Provider [phone] Trav Mullins MD Unavailable [phone] Lenny Zepeda MD Unavailable [phone] Nando Pierce DO Unavailable Nando Pierce DO Unavailable Jaelyn Turner MA Unavailable [phone] Encounter Details Date Type Department Care Team (Late st Contact Info) Description 03/20/2021 [facility] Outpatient Visit [facility] [address] [place] [address], [address] [address] Document, Scanned Social History Tobacco [...] < 140/90 Blood Pressure 142/86(2022 12:43 PM ADVERTISING REP) No Cecilia Christianson Diet - low sodium [...] on filedocumented in this encounter Care Teams Engagement Mgr Relationship Specialty Start Date End Date Nando Pierce DO [address] [place] [address] PCP - General 01/23/08 12/06/23 [place] [address] [facility] [place] [address] PCP - Attributed-[facility] 03/17/21 07/31/21 [place] [address] [facility] [place] [address] PCP - Attributed-[facility] 10/15/21 05/01/22 Trav Mullins MD [facility] [place] [address] Pulmonary Disease 10/07/14 Lenny Zepeda MD 300 [facility] 150 [place] [address] -x7 (Work) Cardiovascular Disease 10/07/14 Jaelyn Turner MA Care Coordination Specialist Care Management 06/16/23 07/31/23 documented as of this encounter
--- OUTSIDE RECORDS SUMMARY | 2024-05-12 12:20 | XMS_ITS | Encounter Summary ---
Author Organization [facility] Health Address [address] [facility] [place] [address] Care Team Providers Care Computational Linguist Name Role Phone Nando Pierce DO Primary Care Provider Trav Mullins MD Unavailable [phone] Lenny Zepeda MD Unavailable [phone] Nando Pierce DO Unavailable Nando Pierce DO Unavailable Nando Pierce DO Unavailable Jaelyn Turner MA Unavailable [phone] Encounter Details Date Type Department Care Team (Late st Contact Info) Description 01/14/2011 [facility] Outpatient Visit [facility] RE[facility] [address] [place], [place] [phone] Unknown, Provider Social History Tobacco Use Types [...] on filedocumented in this encounter Care Teams Computational Linguist Relationship Specialty Start Date End Date Nando Pierce DO [address] [address] [address] [place] [phone] PCP - General 01/23/08 12/06/23 [place] [address] [address] Hubbard [address] PCP - Attributed-[facility] 07/20/16 01/29/21 [place] [address] [place] [address] PCP - Attributed-[facility] 03/17/21 07/31/21 [place] [address] [address] [address] PCP - Attributed-[facility] 10/15/21 05/01/22 Trav Mullins MD [address] [place] [address] Pulmonary Disease 10/07/14 Lenny Zepeda MD 300 [facility] [address] [place] [address] -x7 (Work) Cardiovascular Disease 10/07/14 Jaelyn Turner MA Care Coordination Specialist Care Management 06/16/23 07/31/23 documented as of this encounter
--- OUTSIDE RECORDS SUMMARY | 2024-05-12 12:20 | XMS_ITS | Referral Summary ---
Author Organization [facility] Address [address] [place] [address] Care Team Providers Care Flight Surgeon Name Role Phone Alessandro Sanchez DO Primary [...] on file Legal Sex Female 12:30 AM INTEGRATION ENGINEER Gender Identity Not on file Sexual Orientation Not on file Last Filed Vital Signs Vital Sign Reading Time Taken Comments Blood Pressure 144/85 02/28/2023 11:55 AM INTEGRATION ENGINEER Pulse 62 02/28/2023 11:55 AM INTEGRATION ENGINEER Temperature - - Respiratory Rate 18 02/28/2023 11:55 AM INTEGRATION ENGINEER Oxygen Saturation - - Inhaled Oxygen Concentration - - Weight 94.8 kg (209 lb) 02/28/2023 11:55 AM INTEGRATION ENGINEER Height 167.6 cm (5' 6 ) 02/28/2023 11:55 AM INTEGRATION ENGINEER Body Mass Index 33.73 02/28/2023 11:55 AM INTEGRATION ENGINEER Plan of Treatment Not on file Insurance [facility] MEDICARE Address[facility] [id number] [place] [phone] [facility] MEDICARE Care Teams Flight Surgeon Relationship Specialty Start Date End Date Alessandro Sanchez DO [address] [place] [address] PCP - General Family Medicine 02/28/23
--- OUTSIDE RECORDS SUMMARY | 2024-05-12 12:20 | XMS_ITS | Encounter Summary ---
Author Organization [facility] Health Address [address] [facility] [place] [address] Care Team Providers Care Electronic Data Processing Auditor Name Role Phone Nando Pierce DO Primary Care Provider [phone] Trav Mullins MD Unavailable [phone] Lenny Zepeda MD Unavailable [phone] Nando Pierce DO Unavailable Nando Pierce DO Unavailable Nando Pierce DO Unavailable Jaelyn Turner MA Unavailable [phone] Encounter Details Date Type Department Care Team (Late st Contact Info) Description 03/04/2015 Therapy Visit [facility] REHAB [address] [place], [place] [phone] Document, Scanned Social History Tobacco Use Types [...] 140/90 Blood Pressure 142/86( 023 12:43 PM INSTRUMENT ADJUSTER) No Cecilia Christianson Diet - low sodium 2 gm daily Diet No Annabelle Sanders, RENU documented as of this encounter Visit Diagnoses Not on filedocumented in this encounter Care Teams Electronic Data Processing Auditor Relationship Specialty Start Date End Date Nando Pierce DO [address] [place] [phone] PCP - General 01/23/08 12/06/23 [place] [address] [facility] [place] [address] PCP - Attributed-[facility] [place] 07/20/16 01/29/21 [place] [address] [facility] [place] [address] PCP - Attributed-[facility] 03/17/21 07/31/21 [place] [address] [facility] [place] [address] PCP - Attributed-[facility] 10/15/21 05/01/22 Trav Mullins MD [address] [place] [address] Pulmonary Disease 10/07/14 Lenny Zepeda MD 300 [facility] 150 [place] [address] -x7 (Work) Cardiovascular Disease 10/07/14 Jaelyn Turner MA Care Coordination Specialist Care Management 06/16/23 07/31/23 documented as of this encounter
--- OUTSIDE RECORDS SUMMARY | 2024-05-12 12:20 | XMS_ITS | Encounter Summary ---
Author Organization [facility] Health Address [address] [facility] [place] [address] Care Team Providers Care Paper Products Machine Operator Name Role Phone Nando Pierce DO Primary Care Provider [phone] Trav Mullins MD Unavailable [phone] Lenny Zepeda MD Unavailable [phone] Nando Pierce DO Unavailable Nando Pierce DO Unavailable Nando Pierce DO Unavailable Jaelyn Turner MA Unavailable [phone] Encounter Details Date Type Department Care Team (Late st Contact Info) Description 11/03/2012 [facility] Outpatient Visit [facility] REHAB [address] [place], [place] [phone] Unknown, Provider Social History Tobacco Use Types [...] on filedocumented in this encounter Care Teams Paper Products Machine Operator Relationship Specialty Start Date End Date Nando Pierce DO [address] [address] [address] [facility] [place] [address] PCP - General 01/23/08 12/06/23 [place] [address] [address] Hubbard [address] PCP - Attributed-[facility] [place] 07/20/16 01/29/21 [place] [address] ARI[address] Hubbard [address] PCP - Attributed-[facility] 03/17/21 07/31/21 [place] [address] [address] Hubbard [address] PCP - Attributed-[facility] 10/15/21 05/01/22 Trav Mullins MD [address] [place] [address] Pulmonary Disease 10/07/14 Lenny Zepeda MD 300 [facility] [address] [place] [address] -x7 (Work) Cardiovascular Disease 10/07/14 Jaelyn Turner MA Care Coordination Specialist Care Management 06/16/23 07/31/23 documented as of this encounter
--- OUTSIDE RECORDS SUMMARY | 2024-05-12 12:20 | XMS_ITS | Clinical Summary ---
Author Organization [facility] [employer] Address [address] [facility] [place] [address] Care Team Providers Care Journalism Professor Name Role Phone Trav Mullins MD Unavailable [phone] Lenny Zepeda MD Unavailable [phone] Source Comments [facility] [employer],non-owned Affiliates and Associated Physician Practices is amultiple site organization consisting of ambulatory clinics and hospital sitesin [place], [place], [place] and [place]. This disclosure is being madepursuant to the Care Everywhere program and may not contain all information available regarding this patient. Last updated 17.[facility] [employer] Allergies No known active allergies Medications [...] 3 Stroke Brother 4 Heart Failure Father [place] Mother Cancer - Breast Other pat cousin [...] Comments Blood Pressure 142/86 04/16/2022 12:43 PM TUBERCULOSIS SPECIALIST Pulse 69 04/16/2022 12:43 PM TUBERCULOSIS SPECIALIST Temperature 36.8 C (98.3 F) 11/10/2020 1:05 PM CDT Respiratory Rate 20 11/18/2021 12:4 9 PM CDT Oxygen Saturation 97% 04/16/2022 12: 43 PM TUBERCULOSIS SPECIALIST Inhaled Oxygen Concentration - - Weight 93.4 kg (205 lb 12.8 oz) 023 12:43 PM TUBERCULOSIS SPECIALIST Height 167.6 cm (5' 6 ) 04/16/2022 12:4 3 PM TUBERCULOSIS SPECIALIST Body Mass Index 33.22 04/16/2022 12:43 PM TUBERCULOSIS SPECIALIST Plan of Treatment Health Maintenance Due Date [...] < 140/90 Blood Pressure 142/86(2022 12:43 PM TUBERCULOSIS SPECIALIST) No Cecilia Christianson Diet - low sodium 2 gm daily Diet No Annabelle Sanders, DATA ENTRY ASSOCIATE Right level of care at the right [...] study (prior T score -1.1). Kamla Lemus VEGETABLE INSPECTOR-LACTATION CONSULTANT DEXA ORDERABLE S from Last 3 Months or Most Recently Relevant to Health Maintenance Advance Directives * Full Code (Latest Code Status on File) Date Activated Date Inactivated Comments 09/29/2017 3:24 PM 09/30/2017 5:47 PM Care Teams Journalism Professor Relationship Specialty Start Date End Date Trav Mullins MD [address] [place] [address] Pulmonary Disease 10/07/14 Lenny Zepeda MD 300 [facility] [address] [place] [address] -x7 (Work) Cardiovascular Disease 10/07/14
--- OUTSIDE RECORDS SUMMARY | 2024-05-12 12:20 | XMS_ITS | Encounter Summary ---
Author Organization [facility] Health Address [address] [facility] [place] [address] Care Team Providers Care Track Announcer Name Role Phone Nando Pierce DO Primary Care Provider [phone] Trav Mullins MD Unavailable [phone] Lenny Zepeda MD Unavailable [phone] Nando Pierce DO Unavailable Nando Pierce DO Unavailable Nando Pierce DO Unavailable Jaelyn Turner MA Unavailable [phone] Encounter Details Date Type Department Care Team (Late st Contact Info) Description 10/13/2012 [facility] Outpatient Visit [facility] RE[facility] [address] [place], [place] [phone] Unknown, Provider Social History Tobacco Use Types [...] on filedocumented in this encounter Care Teams Track Announcer Relationship Specialty Start Date End Date Nando Pierce DO [address] [address] [address] [place] [address] PCP - General 01/23/08 12/06/23 [place] [address] [address] [address] PCP - Attributed-[facility] [place] 07/20/16 01/29/21 [place] [address] [address] [address] PCP - Attributed-[facility] 03/17/21 07/31/21 [place] [address] [address] Hubbard [address] PCP - Attributed-[facility] 10/15/21 05/01/22 Trav Mullins MD [address] [place] [address] Pulmonary Disease 10/07/14 Lenny Zepeda MD [address] [facility] [address] [place] [address] -x7 (Work) Cardiovascular Disease 10/07/14 Jaelyn Turner MA Care Coordination Specialist Care Management 06/16/23 07/31/23 documented as of this encounter
--- OUTSIDE RECORDS SUMMARY | 2024-05-12 12:20 | XMS_ITS | Encounter Summary ---
Author Organization [facility] Health Address [address] [place] [address] Care Team Providers Care Window Glazier Name Role Phone Nando Pierce DO Primary Care Provider [phone] Trav Mullins MD Unavailable [phone] Lenny Zepeda MD Unavailable [phone] Nando Pierce DO Unavailable Nando Pierce DO Unavailable Nando Pierce DO Unavailable Jaelyn Turner MA Unavailable [phone] Encounter Details Date Type Department Care Team (Late st Contact Info) Description 03/13/2015 Therapy Visit [facility] [address] [place], [place] [id number] Document, Scanned Social History Tobacco Use Types [...] 140/90 Blood Pressure 142/86( 023 12:43 PM GROUP WORKER) No Cecilia Christianson Diet - low sodium 2 gm daily Diet No Annabelle Sanders, RENU documented as of this encounter Visit Diagnoses Not on filedocumented in this encounter Care Teams Window Glazier Relationship Specialty Start Date End Date Nando Pierce DO [address] [place] [id number] PCP - General 01/23/08 12/06/23 [place] [address] [facility] [address] PCP - Attributed-[facility] [place] 07/20/16 01/29/21 [place] [address] [place] [address] PCP - Attributed-[facility] 03/17/21 07/31/21 [place] [address] [place] [address] PCP - Attributed-[facility] 10/15/21 05/01/22 Trav Mullins MD [address] [place] [address] Pulmonary Disease 10/07/14 Lenny Zepeda MD [address] [facility] [address] [place] [address] [phone] (Work) Cardiovascular Disease 10/07/14 Jaelyn Turner MA Care Coordination Specialist Care Management 06/16/23 07/31/23 documented as of this encounter
--- OUTSIDE RECORDS SUMMARY | 2024-05-12 12:20 | XMS_ITS | Clinical Summary ---
[facility] Organization [facility] Address [address] [place] [address] Care Team Providers Care Wall Steamer Name Role Phone Alessandro Sanchezh Primary Care [...] on file Legal Sex Female 12:30 AM DISPLAY MECHANIC Gender Identity Not on file Sexual Orientation Not on file Obstetrics History Last Filed Vital Signs Vital Sign Reading Time Taken Comments Blood Pressure 144/85 02/28/2023 11:55 AM DISPLAY MECHANIC Pulse 62 02/28/2023 11:55 AM DISPLAY MECHANIC Temperature - - Respiratory Rate 18 02/28/2023 11:55 AM DISPLAY MECHANIC Oxygen Saturation - - Inhaled Oxygen Concentration - - Weight 94.8 kg (209 lb) 02/28/2023 11:55 AM DISPLAY MECHANIC Height 167.6 cm (5' 6 ) 02/28/2023 11:55 AM DISPLAY MECHANIC Body Mass Index 33.73 02/28/2023 11:55 AM DISPLAY MECHANIC Plan of Treatment Health Maintenance Due Date [...] Completed 01/31/2020, 10/15, 12/01/2011 Insurance [employer] [facility] MEDIC[facility] Address: [address] [address] [place] [address] [employer] Care Teams Wall Steamer Relationship Specialty Start Date End Date Alessandro Sanchez DO [address] [place] [address] PCP - General Family Medicine 02/28/23
--- OUTSIDE RECORDS SUMMARY | 2024-05-12 12:20 | XMS_ITS | Encounter Summary ---
Author Organization [facility] Health Address [address] [place] [address] Care Team Providers Care Accelerator Systems Director Name Role Phone Nando Pierce DO Primary Care Provider [phone] Trav Mullins MD Unavailable [phone] Lenny Zepeda MD Unavailable [phone] Nando Pierce DO Unavailable Nando Pierce DO Unavailable Jaelyn Turner MA Unavailable [phone] Encounter Details Date Type Department Care Team (Late st Contact Info) Description 03/20/2021 [facility] Outpatient Visit [facility] [address] [place] [address], [address] [address] Document, Scanned Social History Tobacco [...] < 140/90 Blood Pressure 142/86(2022 12:43 PM CUSTOMER EXPERIENCE MANAGER) No Cecilia Christianson Diet - low sodium [...] on filedocumented in this encounter Care Teams Accelerator Systems Director Relationship Specialty Start Date End Date Nando Pierce DO [address] [place] [address] PCP - General 01/23/08 12/06/23 [place] [address] [facility] [place] [address] PCP - Attributed-[facility] 03/17/21 07/31/21 [place] [address] [facility] [place] [address] PCP - Attributed-[facility] 10/15/21 05/01/22 Trav Mullins MD [facility] [place] [address] Pulmonary Disease 10/07/14 Lenny Zepeda MD [address] [facility] [address] [place] [address] -[phone] (Work) Cardiovascular Disease 10/07/14 Jaelyn Turner MA Care Coordination Specialist Care Management 06/16/23 07/31/23 documented as of this encounter
--- NOTE | 2024-05-12 12:39 | ED_ITS ---
HPI - Eye Problem General Chief complaint: Eye Problems Stated complaint: Red spot in left eye since last night Time Seen by Provider: 05/12/24 12:03 History of Present Illness HPI Narrative: Patient is an 78-year-old female who presents ER with abnormal vision in left eye. Yesterday at 5:00 p.m. she began to see a red [place] in the central vision left eye. When she has both eyes open is just blurred vision but with the right eye closure she sees the red [place] and obstructs review. Today the red circles now brown but has red flares off the side of it. No floaters or flashers. No trauma to the eye. She is not on any blood thinners. Patient is able assistance light but cannot see because it obstructs her central vision. Related Data Home Medications ?Medication ?Instructions ?Recorded ?Confirmed ?Last Taken ?Type acetaminophen 325 mg capsule 650 mg PO QID PRN Pain 04/27/23 05/11/24 07/31/23 History (Tylenol) multivitamin 1 tablet PO DAILY 09/21/23 05/11/24 Unknown History Allergies Allergy/AdvReac Type Severity Reaction Status Date / Time No Known Allergies Allergy Verified 05/12/24 12:05 Review of Systems Review of Systems: All systems reviewed & are unremarkable except as noted in HPI and below Constitutional: Constitutional: Reports no additional constitutional complaints Eyes: Eyes: Reports no additional eye complaints ENT: Reports system reviewed and no additional complaints, except as documented [facility] Past Medical History Medical History Abnormal laboratory test Splenomegaly Nephrolithiasis Osteoarthritis of both knees Congestive heart failure Hypertension CHF (congestive heart failure) 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, bilateral Healed perforation of left ear drum Hypertension Heart disease Surgical History Surgical History S/P cholecystectomy Social History Social History Smoking status: Never smoker Second hand tobacco smoke exposure: No Additional smoking assessment comments: PT DENIES ALL FORMS OF TOBACCO USE Alcohol intake: current Drinks per week: 1 Substance use: never Substance use type: does not use Do You Feel Safe in your Home?: Yes Lack of Transportation: No Lack of Food: Never True Current Housing: I Have Housing Concerned About Future Housing: No Difficulty Paying Gas/Electric Bills: No Difficulty Paying for Meds: No Currently Unemployed: No Education: High School Diploma/GED Difficulty w/ Childcare or Family Care: No Living arrangements: alone Additional living arrangements comments: with Spiritual care concerns: No Exam Narrative: GENERAL: Well-appearing, well-nourished, and in no acute distress. HEAD: Normocephalic, atraumatic. EYES: PERRLA and EOMI. Left eye pressure of 15 mmHg. No foreign body on fluorescein exam. ENT: Mucous membranes moist. CHEST: Clear to auscultation. No respiratory distress. HEART: Regular rate and rhythm. Normal peripheral pulses. EXTREMITIES: Normal range of motion. No edema. NEURO: Alert and oriented x3. PSYCH: Normal mood and affect. Course Course Emergency Course: Spoke with Dr. Caballero with ophthalmology at [place], recommends transfer to ER for eye eval, accepted by Dr. Shay. Pt aware of tx plan and in agreement. Possible vitreous hemorrhage vs retinal detachment. Vital Signs Vital signs: Vital Signs Temperature 98.2 F 05/12/24 11:53 Pulse Rate 69 05/12/24 11:53 Respiratory Rate 16 05/12/24 11:53 Blood Pressure 150/72 H 05/12/24 11:53 Pulse Oximetry 99 05/12/24 11:53 Temperature 98.2 F 05/12/24 11:53 Pulse Rate 69 05/12/24 11:53 Respiratory Rate 16 05/12/24 11:53 Blood Pressure 150/72 H 05/12/24 11:53 Pulse Oximetry 99 05/12/24 11:53 Discharge Plan Discharge Clinical Impression: Acute loss of vision Patient Disposition: Acute Care Hospital Condition: Stable Patient Language: Icelandic Prescriptions: No Action celecoxib 200 mg capsule 200 mg PO BID PRN (Reason: Pain) Qty: 60 1RF multivitamin Tablet 1 tablet PO DAILY amlodipine 5 mg tablet 5 mg PO DAILY Qty: 90 0RF acetaminophen [Tylenol] 325 mg Capsule 650 mg PO QID PRN (Reason: Pain) carvedilol [Coreg] 25 mg tablet 25 mg PO BID Qty: 60 5RF Rx Instructions: must administer with a meal/food losartan 50 mg tablet See Rx Instructions .ROUTE .COMPLEX Qty: 90 2RF Dose Instruction: TAKE ONE TABLET BY MOUTH DAILY Rx Instructions: TAKE ONE TABLET BY MOUTH DAILY Follow-up/Referrals: Alessandro Sanchez DO [Primary Care Provider] -
== END 2024-05-12 14:16 | disposition short-term general hospital (02) ==
PROVIDERS: Emergency Provider Emergency Medicine; PCP Family Medicine
DX: H53.133 Sudden visual loss, bilateral (principal); I50.9 Heart failure, unspecified; I11.0 Hypertensive heart disease with heart failure; H90.3 Sensorineural hearing loss, bilateral; M17.0 Bilateral primary osteoarthritis of knee; Z87.442 Personal history of urinary calculi; Z90.49 Acquired absence of other specified parts of digestive tract; Z79.899 Other long term (current) drug therapy
CPT/HCPCS: 99283